=== PATIENT | male | born 1985 | race Caucasian/White ===

== ENCOUNTER 2019-09-03 04:44 | Emergency (ER) | payer SELFPAY ==
--- NOTE | ~2019-09-03 | CT_ITS ---
EXAMINATION: CT abdomen pelvis w con DATE: 09/03/2019 06:21 INDICATION: Right flank pain TECHNIQUE: Computed tomography (CT) of the abdomen and pelvis was performed with 100 cc Omnipaque 350 intravenous contrast. Automated exposure control and iterative reconstruction technique were employe d. Exam dose: 890.60 mGy-cm total exam DLP. COMPARISON: None. FINDINGS: The lung bases are clear. Normal heart size. No pericardial or pleural effusion. No hepatic space-occupying mass lesion. The gallbladder is unremarkable. No bile duct dilatation. Nor mal splenic size. There is severe extensive calcification of the pancreas. No pancreatic mass lesion or ductal dilatati on is evident. Normal morphology of the adrenal glands. No renal mass lesion is detected. There is a distal right ureteral 2.5 mm calculus with mild right hydroureteronephrosis. No other urin kavitha tract calculus is noted. Normal caliber of the abdominal aorta. No intraperitoneal or retroperitoneal or pelvic mass lesion or adenopathy or ascites. Mild bilateral fat containing inguinal hernias. Small sliding hiatal hernia. Normal appendix. Mild colonic diverticulosis; no CT evidence of divertic ulitis. No bowel obstruction or intraperitoneal free air. The urinary bladder is unremarkable. Moderate prostate prominence. Nonspecific bilateral prominent inguinal lymph nodes; recommend clinical correlation. Healing anterior right 11th rib fracture. Included skeletal structures are otherwise unremarkable. IMPRESSION: 2.5 mm distal right ureteral calculus with mild right hydroureteronephrosis Extensive calcifications of the pancreas consistent with chronic pancreatitis Reviewed, dictated and finalized at [facility] Reviewed, dictated and finalized at [facility]. IMPRESSION: 2.5 mm distal right ureteral calculus with mild right hydrouretero nephrosis Extensive calcifications of the pancreas consistent with chronic pancreatitis
[2019-09-03 05:19] VITALS: BP 123/92; PULSE 91; RESP 18; TEMP 36.5; O2SAT 98
--- NOTE | 2019-09-03 05:26 | ED.ABDPAIN ---
HPI - Abdominal Pain General Chief Complaint: Abdominal Pain <Joycelyn Christianson MD - Last Filed: 09/03/19 19:01> Stated Complaint: right flank pain <Joycelyn Christianson MD - Last Filed: 09/03/19 19:01> Time Seen by Provider: 09/03/19 05:17 <Joycelyn Christianson MD - Last Filed: 09/03/19 19:01> History of Present Illness HPI narrative: Patient presents for severe acute right lower quadrant and right flank pain since 3 AM. He has had some vomiting. He gauges the pain at 10 out of 10. No fever or chills. He has never had anything like this before. He has no history of kidney stones. He has not been sick in the last week. <Joycelyn Christianson MD - Last Filed: 09/03/19 19:01> MD elicited complaint: abdominal pain and flank pain <Joycelyn Christianson MD - Last Filed: 09/03/19 19:01> Related Data Allergies/Adverse Reactions: Allergies Allergy/AdvReac Type Severity Reaction Status Date / Time No Known Allergies Allergy Unverified 09/03/19 05:01 <Joycelyn Christianson MD - Last Filed: 09/03/19 19:01> Review of Systems Review of Systems: Narrative: CONSTITUTIONAL: Denies fever, chills, or sweats. EYES: Denies visual changes, redness, or discharge. ENT: Denies rhinorrhea, congestion, sore throat, or otalgia. CARDIOVASCULAR: Denies chest pain, palpitations, or edema. RESPIRATORY: Denies cough or dyspnea. GASTROINTESTINAL: He has abdominal pain, nausea, vomiting, but not diarrhea. GENITOURINARY: Denies dysuria or hematuria. SKIN: Denies rash or itching. MUSCULOSKELETAL: Denies back pain, joint pain, or myalgia. NEUROLOGIC: Denies headache, numbness, or weakness. PSYCHIATRIC: Denies anxiety or depression. <Joycelyn Christianson MD - Last Filed: 09/03/19 19:01> [facility] Family History Family History: Family History (Updated 07/28/16 @ 11:15 by DOCTOR UNKNOWN) Grandparent Diabetes mellitus Asthma <Joycelyn Christianson MD - Last Filed: 09/03/19 19:01> Social History Social History: Social History (Updated 09/03/19 @ 05:27 by Joycelyn Christianson MD) Alcohol intake: current Substance use: current Substance use type: marijuana Gender identity (if verbalized by the patient): Male <Joycelyn Christianson MD - Last Filed: 09/03/19 19:01> Exam Narrative: Exam Narrative: GENERAL: Well-appearing, well-nourished, and in pain. HEAD: Normocephalic, atraumatic. EYES: PERRLA and EOMI. ENT: Nares clear, no rhinorrhea or epistaxis. Mucous membranes moist. NECK: Supple. CHEST: Clear to auscultation. No respiratory distress. HEART: Regular rate and rhythm. No murmur heard. Normal peripheral pulses. ABDOMEN: Soft, tender, nondistended, normal active bowel sounds. EXTREMITIES: Normal range of motion. No edema. SKIN: Warm, dry, no rash. Vitiligo. NEURO: No focal deficits. Alert and oriented x3. PSYCH: Normal mood and affect. <Joycelyn Christianson MD - Last Filed: 09/03/19 19:01> Course Reevaluation(s) Reevaluation #1: Sx iomproved with toradol. Given additional liter of fluid. D/c with supportive care. <Radhames Hager MD - Last Filed: 09/03/19 08:48> Date: 09/03/19 <Radhames Hager MD - Last Filed: 09/03/19 08:48> Time: 08:45 <Radhames Hager MD - Last Filed: 09/03/19 08:48> Vital Signs Vital signs: Vital Signs Temperature 97.7 F 09/03/19 05:19 Pulse Rate 91 09/03/19 05:19 Respiratory Rate 18 09/03/19 05:19 Blood Pressure 123/92 H 09/03/19 05:19 Pulse Oximetry 98 09/03/19 05:19 Temperature 97.7 F 09/03/19 05:19 Pulse Rate 96 09/03/19 09:16 Respiratory Rate 16 09/03/19 09:16 Blood Pressure 104/66 09/03/19 09:16 Pulse Oximetry 95 06/06/20 09:16 <Joycelyn Christianson MD - Last Filed: 09/03/19 19:01> Vital Signs Temperature 97.7 F 09/03/19 05:19 Pulse Rate 91 09/03/19 05:19 Respiratory Rate 18 09/03/19 05:19 Blood Pressure 123/92 H 09/03/19 05:19 Pulse Oximetry 98 09/03/19 05:19 Temperature 97.7 F 09/03/19 05:19 Pulse Rate 96
[2019-09-03] MEDS: SODIUM CHLORIDE 0.9% IV 1,000 ML 999 ML IV CONT ×2 (05:30→07:56)
[2019-09-03] MEDS: ONDANSETRON INJ 4 MG/2 ML VIAL IV PUSH ×2 (05:30→07:58)
[2019-09-03] MEDS: MORPHINE SULFATE 4 MG/ML INJ IV PUSH (05:31)
[2019-09-03 05:36] LABS: Basophils Absolute Auto 0.1 K/mm3 (0.0-0.1); Basophils Percent Auto 0.7 % (0.2-1.2); Eosinophils Absolute Auto 0.8 K/mm3 (0-0.3); Hematocrit 47.5 % (42.0-52.0); Hemoglobin 15.9 g/dL (14.0-18.0); Immature Granulocyte Absolute 0.11 K/mm3 (0.00-0.031); Lymphocytes Absolute Auto 1.72 K/mm3 (0.9-3.2); Lymphocytes Percent Auto 15.6 % (18.3-44.2); Mean Corpuscular HGB Conc 33.5 g/dl (32-36); Mean Corpuscular Hemoglobin 31.4 pg (26-34); Mean Corpuscular Volume 93.7 fl (80-100); Mean Platelet Volume 10.9 fl (7.4-10.4); Monocytes Absolute Auto 0.9 K/mm3 (0.1-0.6); Monocytes Percent Auto 8.2 % (2.6-8.5); Neutrophils Absolute Auto 7.4 K/mm3 (1.3-6.7); Neutrophils Percent Auto 67.5 % (45.5-73.1); Platelet Count Result 338 k/mm3 (150-375); Red Blood Count 5.07 M/mm3 (4.6-6.20); Red Cell Distribution Width 13.8 % (11.5-14.5)
[2019-09-03 05:44] LABS: Add Urine Microscopic? YES; Appearance Urine Cloudy (Clear); Bilirubin Urine Negative (Negative); Blood Urine 3+ (Negative); Color Urine Yellow (Yellow); Glucose Urine UA Negative (Negative); Ketones Urine Negative (Negative); Leukocyte Esterase Ur Negative LEU/UL (Negative); Mucus Urine Heavy /lpf; Nitrate Urine Negative (Negative); Protein Urine 1+ mg/dL (Negative); RBC Urine >75 /hpf (0-2); Specific Grav Ur 1.027 (1.001-1.035); Squamous Epithelial Cell Urine Rare /hpf (Few); Urobilinogen Urine Negative mg/dL (<2.0)
[2019-09-03 05:46] LABS: Alanine Aminotransferase 62 U/L (4-50); Albumin Level 4.1 g/dL (3.5-5.1); Alkaline Phosphatase 178 U/L (38-126); Aspartate Amino Transferase 46 U/L (17-59); Bilirubin,Total 0.8 mg/dL (0.2-1.3); Blood Urea Nitrogen 7 mg/dL (9-20); Calcium 10.3 mg/dL (8.4-10.2); Carbon Dioxide 26 mmol/L (22-30); Chloride 107 mmol/L (98-107); Estimated Glomerular Filt Rate > 60; Glucose 130 mg/dL (75-110); Potassium 3.8 mmol/L (3.4-5.0); Sodium 141 mmol/L (137-145)
[2019-09-03] MEDS: HYDROMORPHONE HCL 1 MG/ML INJ IV PUSH (05:48)
[2019-09-03] MEDS: KETOROLAC 30 MG/ML VIAL (*BKC) IV PUSH (07:57)
[2019-09-03 08:40] VITALS: BP 109/57; PULSE 94; RESP 16; O2SAT 96
[2019-09-03 09:16] VITALS: BP 104/66; PULSE 96; RESP 16; O2SAT 95
== END 2019-09-03 09:17 | disposition home or self-care (01) ==
PROVIDERS: Emergency Medicine; Emergency Provider Emergency Medicine
DX: N13.2 Hydronephrosis with renal and ureteral calculous obstruction (principal); K86.89 Other specified diseases of pancreas; L80 Vitiligo
CPT/HCPCS: 36415; 74177; 80053; 81001; 85025; 87086; 87088; 96361; 96374; 96375; 96376; 99284; J1170; J1885; J2270; J2405; J7030; Q9967

== ENCOUNTER 2021-02-23 15:25 | Emergency (ER) | payer OTHER, SELFPAY ==
[2021-02-23] VITALS (17 sets, daily range): BP systolic 113–133; BP diastolic 63–83; PULSE 91–115; RESP 12–22; TEMP 37.4; O2SAT 89–100
--- NOTE | ~2021-02-23 | XR_ITS ---
EXAMINATION: XR chest 2V 02/23/2021 15:49 INDICATION: Cough and congestion PROCEDURE: 2 view chest COMPARISON: 03/27/2004 FINDINGS: The lungs are clear. The cardiomediastinal silhouette is within normal limits. There are no pleural effusions. There is no pneumothorax suspected. IMPRESSION: 1: NO ACUTE CARDIOPULMONARY DISEASE. Reviewed, dictated and finalized at [facility]. COURIER
[2021-02-23] MEDS: ALBUTEROL SULFATE NEB 2.5 MG/0.5 ML INH 15 MG INHALATION (15:53)
[2021-02-23] MEDS: IPRATROPIUM BR 0.02% INH SOLN 0.5 MG/2.5 ML VIAL 1.5 MG INHALATION (15:54)
--- NOTE | 2021-02-23 16:04 | ED.URI ---
HPI - URI/Sore Throat General Chief Complaint: Upper Respiratory Infection Stated Complaint: cough, congestion Time Seen by Provider: 02/23/21 15:34 Source: patient History of Present Illness HPI Narrative: Patient presents with cough, congestion, shortness of breath. Reports history of asthma and he normally gets symptoms like this around this time of year due to the weather change. Reports typically breathing treatments will help him. He was seen at another facility approximately 2 weeks ago but did not get breathing treatments and was just sent home. Reports his symptoms have not really improved so he came back to the ER for evaluation. He has not noted any fevers he has not been vaccinated against Covid denies any focal areas of pain such as chest pain or abdominal pain. Denies any nausea vomiting or diarrhea. Denies any known sick contacts. Related Data Home Medications Medication Instructions Recorded Confirmed albuterol sulfate INHALATION 02/23/21 budesonide-formoterol [Symbicort] INHALATION 02/23/21 montelukast mg 02/23/21 Allergies Allergy/AdvReac Type Severity Reaction Status Date / Time No Known Allergies Allergy Unverified 02/23/21 15:31 Review of Systems Review of Systems: CONSTITUTIONAL: Denies fever, chills, or sweats. EYES: Denies visual changes, redness, or discharge. ENT: Reports congestion denies sore throat or difficulty swallowing CARDIOVASCULAR: Denies chest pain, palpitations, or edema. RESPIRATORY: Reports dyspnea and cough GASTROINTESTINAL: Denies abdominal pain, nausea, vomiting, or diarrhea. GENITOURINARY: Denies dysuria or hematuria. SKIN: Denies rash or itching. MUSCULOSKELETAL: Denies back pain, joint pain, or myalgia. NEUROLOGIC: Denies headache, numbness, dizziness, or weakness. PSYCHIATRIC: Denies anxiety or depression. All systems reviewed & are unremarkable except as noted in HPI and below PMFSH Past Medical History Medical History (Updated 02/23/21 @ 17:06 by Feliciano Sahni MD) Asthma Family History Family History Grandparent Diabetes mellitus Asthma Social History Social History Alcohol intake: current Substance use: current Substance use type: marijuana Gender identity (if verbalized by the patient): Male Exam Narrative: GENERAL: Well-appearing, well-nourished, and in no acute distress. HEAD: Normocephalic, atraumatic. EYES: PERRLA and EOMI. ENT: Nares clear, no rhinorrhea or epistaxis. Mucous membranes moist. NECK: Supple. No masses. No JVD CHEST: Diffuse wheezing and all lung mcknight most prominent with expiratory phase HEART: Regular rate and rhythm. No murmur heard. Normal peripheral pulses. ABDOMEN: Soft, nontender, nondistended, normal active bowel sounds. EXTREMITIES: Normal range of motion. No edema. SKIN: Warm, dry, no rash. NEURO: No focal deficits. Alert and oriented x3. PSYCH: Normal mood and affect. Course Reevaluation(s) Reevaluation #1: Patient reports feeling much improved. Patient continues have mild wheezing on exam. Given his improvement he feels like he can manage his symptoms at home with continued supportive therapies. Date: 02/23/21 Time: 17:05 Vital Signs Vital signs: Vital Signs Temperature 37.4 C 02/23/21 15:28 Pulse Rate 108 H 02/23/21 15:28 Respiratory Rate 18 02/23/21 15:28 Pulse Oximetry 94 02/23/21 15:28 Temperature 37.4 C 02/23/21 15:28 Pulse Rate 96 02/23/21 17:49 Respiratory Rate 15 02/23/21 17:49 Blood Pressure 120/72 02/23/21 17:49 Pulse Oximetry 100 02/23/21 17:49 MDM - URI/Sore Throat MDM Narrative Medical decision making narrative: H&P as above, vss, pt looks clinically well, exam initially with diffuse wheezing improved after DuoNeb therapies, imaging without acute process, additional labs/img considered. symptomatic relief available as needed, patien
[2021-02-23] MEDS: predniSONE 20 MG TABLET 60 MG PO (16:32)
[2021-02-25 20:05] LABS: SARS-CoV-2 RNA PCR Negative
== END 2021-02-23 17:45 | disposition home or self-care (01) ==
PROVIDERS: Emergency Provider Emergency Medicine; PCP Family Medicine
DX: R06.02 Shortness of breath (principal); J45.909 Unspecified asthma, uncomplicated; Z20.822 Contact with and (suspected) exposure to COVID-19
CPT/HCPCS: 71046; 94640; 99283; C9803; J7512; U0003; U0005

== ENCOUNTER 2024-03-31 12:09 | Emergency (ER) | payer BC, SELFPAY ==
[2024-03-31 12:33] VITALS: BP 129/79; PULSE 80; RESP 20; TEMP 36.9; O2SAT 100
--- NOTE | 2024-03-31 12:43 | ED_ITS ---
HPI - General Adult General Chief complaint: Unspecified Stated complaint: pt with PD, medical clearance needed/pt on acid Focused HPI: 38-year-old male presents to the emergency department for nausea, vomiting and diarrhea for 5 days. Patient reports several episodes of diarrhea. He went to urgent care and was sent to the ED for further evaluation. He reports lower abdominal cramping that is intermittent. Not currently having any current in her pain. Denies dysuria or hematuria. Denies recent sick contacts, recent antibiotic use, recent surgeries or hospitalizations, healthcare exposure. Reports a history of prior mechanical aortic valve replacement 1 year ago. GENERAL: Well-appearing, well-nourished, and in no acute distress. HEAD: Normocephalic, atraumatic. CHEST: Clear to auscultation. ?No respiratory distress. HEART: Regular rate and rhythm.? NEURO: ?Alert and oriented x3. Patient screened in triage and initial orders placed.? ?Additional care and disposition to be based upon?diagnostic testing and treatment. Related Data Home Medications ?Medication ?Instructions ?Recorded ?Confirmed ?Last Taken ?Type albuterol sulfate 90 mcg/actuation inhalation 02/23/21 Unknown History aerosol inhaler budesonide-formoterol HFA 160 inhalation 02/23/21 Unknown History mcg-4.5 mcg/actuation aerosol inhaler (Symbicort) montelukast 10 mg tablet mg 02/23/21 Unknown History Allergies Allergy/AdvReac Type Severity Reaction Status Date / Time No Known Allergies Allergy Unverified 02/23/21 15:31 [facility] Past Medical History Medical History (Updated 04/01/24 @ 18:47 by Alexandra Garay PA-C) Asthma Family History Family History Grandparent Diabetes mellitus Asthma Social History Social History Alcohol intake: current Substance use: current Substance use type: marijuana Gender identity (if verbalized by the patient): Male Course Vital Signs Vital signs: Vital Signs Temperature 98.5 F 03/31/24 12:33 Pulse Rate 80 03/31/24 12:33 Respiratory Rate 20 03/31/24 12:33 Blood Pressure 129/79 03/31/24 12:33 Pulse Oximetry 100 03/31/24 12:33 Temperature 98.5 F 03/31/24 12:33 Pulse Rate 80 03/31/24 12:33 Respiratory Rate 20 03/31/24 12:33 Blood Pressure 129/79 03/31/24 12:33 Pulse Oximetry 100 03/31/24 12:33 Medical Decision Making Vital Signs Vital Signs: Vital Signs Temperature 98.5 F 03/31/24 12:33 Pulse Rate 80 03/31/24 12:33 Respiratory Rate 20 03/31/24 12:33 Blood Pressure 129/79 03/31/24 12:33 Pulse Oximetry 100 03/31/24 12:33 Temperature 98.5 F 03/31/24 12:33 Pulse Rate 80 03/31/24 12:33 Respiratory Rate 20 03/31/24 12:33 Blood Pressure 129/79 03/31/24 12:33 Pulse Oximetry 100 03/31/24 12:33 Lab Data 03/31/24 13:52 03/31/24 13:52 Labs: Lab Results 03/31/24 Range/Units 13:52 WBC 18.8 H (4.5-10.0) K/mm3 RBC 5.17 (4.6-6.20) M/mm3 Hgb 16.4 (14.0-18.0) g/dL Hct 47.2 (42.0-52.0) % MCV 91.3 (80-100) fl MCH 31.7 (26-34) pg MCHC 34.7 (32-36) g/dl RDW 13.1 (11.5-14.5) % Plt Count 264 (150-375) k/mm3 MPV 11.3 H (7.4-10.4) fl Immature Gran % (Auto) 0.4 (0-0.5) % Neut % (Auto) 81.6 H (45.5-73.1) % Lymph % (Auto) 5.2 L (18.3-44.2) % Banks % (Auto) 11.9 H (2.6-8.5) % Eos % (Auto) 0.6 (0-4.4) % Baso % (Auto) 0.3 (0.2-1.2) % Lymph # (Auto) 0.98 (0.9-3.2) K/mm3 Banks # (Auto) 2.2 H (0.1-0.6) K/mm3 Eos # (Auto) 0.1 (0-0.3) K/mm3 Baso # (Auto) 0.1 (0.0-0.1) K/mm3 Abs Immat Gran (auto) 0.08 H (0.00-0.031) K/mm3 Absolute Neuts (auto) 15.3 H (1.3-6.7) K/mm3 Absolute Nucleated RBC 0.000 (0.0-0.012) K/mm3 Nucleated RBC % 0.0 (0.0-0.2) % Sodium 136 L (137-145) mmol/L Potassium 4.0 (3.4-5.0) mmol/L Chloride 107 (98-107) mmol/L Carbon Dioxide 25 (22-30) mmol/L Anion Gap 4 (4-12) mmol/L BUN 10 (9-20) mg/dL Creatinine 0.80 (0.7-1.3) mg/dL Estim Creat Clear Calc Not Reportable Estimated GFR > 60 (59 - ) Glucose 151 H (65-110) mg/dL Calcium 11.2 H (8.4-10.2) mg/dL Magnesium 2.3 (1.6-2.3) mg/dL Total Bilirubin 2.8 H (0.2-1.3) mg/dL AST 23 (17-59) U/L ALT 20 (6-50) U/L Alkaline Phosphatase 153 H (38-126) U/L Total Protein 8.0 (6.3-8.2) g/dL Albumin 4.7 (3.5-5.1) g/dL Lipase 13 L (23-300) U/L Discharge Plan Discharge Clinical Impression: Nausea & vomiting Qualifiers: Vomiting type: unspecified Qualified Code(s): R11.2 - Nausea with vomiting, unspecified Patient Disposition: Elopement After Seen by Prov Condition: Stable Patient Language: Croatian Prescriptions: No Action montelukast 10 mg tablet albuterol sulfate 90 mcg/actuation HFA aerosol inhaler INHALATION budesonide-formoterol [Symbicort] 160-4.5 mcg/actuation HFA aerosol inhaler INHALATION albuterol sulfate 0.63 mg/3 mL solution for nebulization 0.63 mg inhalation Q4H PRN (Reason: shortness of breath or wheezing) Qty: 75 0RF ipratropium bromide 0.02 % solution 0.5 mg inhalation Q6H Qty: 62.5 0RF prednisone 50 mg tablet 50 mg PO DAILY Qty: 4 0RF Rx Instructions: start steroids tomorrow Follow-up/Referrals: Javier,MD Abad [Primary Care Provider] -
[2024-03-31 13:57] LABS: Basophils Absolute Auto 0.1 K/mm3 (0.0-0.1); Basophils Percent Auto 0.3 % (0.2-1.2); Eosinophils Absolute Auto 0.1 K/mm3 (0-0.3); Eosinophils Percent Auto 0.6 % (0-4.4); Hematocrit 47.2 % (42.0-52.0); Hemoglobin 16.4 g/dL (14.0-18.0); Immature Granulocyte Absolute 0.08 K/mm3 (0.00-0.031); Immature Granulocyte Percent A 0.4 % (0-0.5); Lymphocytes Absolute Auto 0.98 K/mm3 (0.9-3.2); Lymphocytes Percent Auto 5.2 % (18.3-44.2); Mean Corpuscular HGB Conc 34.7 g/dl (32-36); Mean Corpuscular Hemoglobin 31.7 pg (26-34); Mean Corpuscular Volume 91.3 fl (80-100); Mean Platelet Volume 11.3 fl (7.4-10.4); Monocytes Absolute Auto 2.2 K/mm3 (0.1-0.6); Monocytes Percent Auto 11.9 % (2.6-8.5); Neutrophils Absolute Auto 15.3 K/mm3 (1.3-6.7); Neutrophils Percent Auto 81.6 % (45.5-73.1); Platelet Count Result 264 k/mm3 (150-375); Red Blood Count 5.17 M/mm3 (4.6-6.20); Red Cell Distribution Width 13.1 % (11.5-14.5); White Blood Count 18.8 K/mm3 (4.5-10.0)
[2024-03-31 14:14] LABS: Alanine Aminotransferase 20 U/L (6-50); Albumin Level 4.7 g/dL (3.5-5.1); Alkaline Phosphatase 153 U/L (38-126); Anion Gap 4 mmol/L (4-12); Aspartate Amino Transferase 23 U/L (17-59); Bilirubin,Total 2.8 mg/dL (0.2-1.3); Blood Urea Nitrogen 10 mg/dL (9-20); Calcium 11.2 mg/dL (8.4-10.2); Carbon Dioxide 25 mmol/L (22-30); Chloride 107 mmol/L (98-107); Estimated Glomerular Filt Rate > 60; Glucose 151 mg/dL (65-110); Lipase 13 U/L (23-300); Magnesium 2.3 mg/dL (1.6-2.3); Sodium 136 mmol/L (137-145)
--- NOTE | 2024-03-31 14:38 | PC.NURSE ---
Ivan MONTOYA states they are leaving with pt.
== END 2024-03-31 16:25 | disposition left against medical advice (07) ==
LOC: ANHED 15:29
PROVIDERS: Emergency Provider Physician Assistant; PCP Family Medicine
DX: R11.2 Nausea with vomiting, unspecified (principal); J45.909 Unspecified asthma, uncomplicated
CPT/HCPCS: 36415; 80053; 83690; 83735; 85025; 99283

== ENCOUNTER 2024-06-07 17:17 | Emergency (ER) | payer BC, SELFPAY ==
[2024-06-07] VITALS (27 sets, daily range): BP systolic 102–138; BP diastolic 66–92; PULSE 68–80; RESP 9–16; TEMP 36.7; O2SAT 87–100
--- NOTE | ~2024-06-07 | CT_ITS ---
CT of the Abdomen and Pelvis: Indication: Abdominal pain Technique: 2.5 mm axial scans were obtained through the abdomen and pelvis following intravenous adm inistration of 100 cc of Omnipaque 350. Dose reduction technique was used on this scan by utilizing a utomated exposure control and iterative reconstruction technique. The dose-length product (DLP) was 5 13.77 mGy-cm. Findings: Scans through the lung bases are unremarkable. The liver, spleen, adrenals and kidneys are within normal limits. Questionable mild gallbladder wall thickening and pericholecystic inflammatory change. There are extensive pancreatic calcifications, mi ld peripancreatic inflammatory change and fluid. There is a fluid collection along the greater curvat ure of the stomach measuring 4.0 x 2.8 cm (axial image 41, compatible with pseudocyst. Probable addit ional small septated pseudocyst along the pancreatic head (axial image 62). No evidence of aortic ane urysm. No lymphadenopathy. No bowel obstruction or bowel wall thickening. There is no evidence to suggest acute appendicitis. Images through the pelvis were performed. Urinary bladder unremarkable. No pelvic mass. No ascites. Impression: Acute on chronic pancreatitis, as detailed above, peripancreatic inflammatory change and fluid with e xtensive coarse pancreatic calcifications. 4.0 x 2.8 cm probable pseudocyst along the greater curvature of the stomach. Possible additional smal l septated pseudocyst at the pancreatic head region. Mild gallbladder wall thickening and pericholecystic inflammatory change is likely reactive due to th e pancreatitis. If there is concern for cholecystitis, consider ultrasound and/or HIDA scan. Reviewed, dictated and finalized at location . Impression: Acute on chronic pancreatitis, as detailed above, peripancreatic inflammatory c hange and fluid with extensive coarse pancreatic calcifications. 4.0 x 2.8 cm probable pseudocyst along the greater curvature of the stomach. Po ssible additional small septated pseudocyst at the pancreatic head region. Mild gallbladder wall thickening and pericholecystic inflammatory change is lik patricia reactive due to the pancreatitis. If there is concern for cholecystitis, co nsider ultrasound and/or HIDA scan.
--- NOTE | 2024-06-07 18:03 | ED_ITS ---
HPI - Abdominal Pain General Chief Complaint: Abdominal Pain <Danna Momin PA-C - Last Filed: 06/10/24 17:07> Stated Complaint: right side abd pain <Danna Momin PA-C - Last Filed: 06/10/24 17:07> Time Seen by Provider: 06/07/24 18:03 <Danna Momin PA-C - Last Filed: 06/10/24 17:07> Focused HPI: This is a 38 year old male that presents to the ER for right upper quadrant pain ongoing over the last couple of months intermittently. Reports history of pancreatitis. Reports some diarrhea. Denies fever, vomiting, dysuria, hematuria. GENERAL: Well-appearing, well-nourished, and in no acute distress. HEAD: Normocephalic, atraumatic. CHEST: Clear to auscultation. ?No respiratory distress. HEART: Regular rate and rhythm.? NEURO: ?Alert and oriented x3. Patient screened in triage and initial orders placed.? ?Additional care and disposition to be based upon?diagnostic testing and treatment. <Danna Momin PA-C - Last Filed: 06/10/24 17:07> Source: patient <Aj Martinez PA-C - Last Filed: 06/08/24 02:30> Mode of arrival: ambulatory <Aj Martinez PA-C - Last Filed: 06/08/24 02:30> Limitations: no limitations <Aj Martinez PA-C - Last Filed: 06/08/24 02:30> History of Present Illness HPI narrative: Agree with MSE note above. Patient reports pain is primarily in the right upper quadrant and sometimes radiates into the right flank region. Denies any lower abdominal pain. Denies urinary symptoms. Endorses some diarrhea but no vomiting. Denies any known fevers. States he has had pancreatitis in the past. <Aj Martinez PA-C - Last Filed: 06/08/24 02:30> Related Data Home Medications: Home Medications ?Medication ?Instructions ?Recorded ?Confirmed ?Last Taken ?Type albuterol sulfate 90 mcg/actuation inhalation 02/23/21 Unknown History aerosol inhaler budesonide-formoterol HFA 160 inhalation 02/23/21 Unknown History mcg-4.5 mcg/actuation aerosol inhaler (Symbicort) montelukast 10 mg tablet mg 02/23/21 Unknown History <Danna Momin PA-C - Last Filed: 06/10/24 17:07> Allergies/Adverse Reactions: Allergies Allergy/AdvReac Type Severity Reaction Status Date / Time No Known Allergies Allergy Unverified 02/23/21 15:31 <Danna Momin PA-C - Last Filed: 06/10/24 17:07> Review of Systems 2 Review of Systems: All systems as dictated in HPI <Aj Martinez PA-C - Last Filed: 06/08/24 02:30> [facility] Past Medical History Medical History: Medical History (Updated 06/10/24 @ 17:07 by Danna Momin PA-C) Asthma <Danna Momin PA-C - Last Filed: 06/10/24 17:07> Family History Family History: Family History Grandparent Diabetes mellitus Asthma <Danna Momin PA-C - Last Filed: 06/10/24 17:07> Social History Social History: Social History Alcohol intake: current Substance use: current Substance use type: marijuana Gender identity (if verbalized by the patient): Male <Danna Momin PA-C - Last Filed: 06/10/24 17:07> Exam 2 Narrative: GENERAL: Well-appearing, well-nourished, and in no acute distress. HEAD: Normocephalic, atraumatic. EYES: PERRLA and EOMI. ENT: Nares clear, no rhinorrhea or epistaxis. Mucous membranes moist. Oropharynx without tonsillar hypertrophy exudate or other lesions. NECK: Supple. No adenopathy or masses. CHEST: No respiratory distress. Clear to auscultation. No wheezes rales or rhonchi HEART: Regular rate and rhythm. No murmur heard. Normal peripheral pulses. ABDOMEN: Mild right upper quadrant tenderness. Soft, otherwise nontender, nondistended, normal active bowel sounds. MSK: Normal range of motion. No edema. SKIN: Warm, dry, no rash. NEURO: Alert and oriented x4. No focal deficits. PSYCH: Normal mood and affect. <Aj Martinez PA-C - Last Filed: 06/08/24 02:30> Course Vital Signs Vital signs: Vital Signs Temperature 98.1 F 06/07/24 17:34 Pulse Rate 80 06/07/24 17:34 Respiratory Rate 16 06/07/24 17:34 Blood Pressure 138/74 06/07/24 17:34 Pulse Oximetry 98 06/07/24 17:34 Oxygen Delivery Room Air 06/07/24 17:34 Temperature 98.1 F 06/07/24 17:34 Pulse Rate 77 06/07/24 20:46 Respiratory Rate 9 L 06/07/24 20:46 Blood Pressure 134/109 H 06/08/24 01:00 Pulse Oximetry 97 06/08/24 01:01 Oxygen Delivery Room Air 06/07/24 17:34 <Danna Momin PA-C - Last Filed: 06/10/24 17:07> Vital Signs Temperature 98.1 F 06/07/24 17:34 Pulse Rate 80 06/07/24 17:34 Respiratory Rate 16 06/07/24 17:34 Blood Pressure 138/74 06/07/24 17:34 Pulse Oximetry 98 06/07/24 17:34 Oxygen Delivery Room Air 06/07/24 17:34 Temperature 98.1 F 06/07/24 17:34 Pulse Rate 77 06/07/24 20:46 Respiratory Rate 9 L 06/07/24 20:46 Blood Pressure 134/109 H 06/08/24 01:00 Pulse Oximetry 97 06/08/24 01:01 Oxygen Delivery Room Air 06/07/24 17:34 <KIMMY Oakes Last Filed: 06/08/24 02:30> MDM - Abdominal Pain MDM Narrative Medical decision making narrative: This is a 38-year-old male who presents to the ED for chief complaint of epigastric abdominal pain. Vitals are normal. Exam remarkable for the above. He is resting comfortably and does not appear toxic. Lab work shows mildly elevated white count 13 on. Lipase is normal. CMP shows mild elevation in total bilirubin and mild elevation in calcium 11.1. CT abdomen pelvis with IV contrast: Acute on chronic pancreatitis with edema throughout the pancreas which is after being calcified. No pseudocyst. Mild wall thickening of the adjacent duodenum. On re-evaluation patient is resting comfortably after receiving pain medications and Zofran. He is tolerating p.o. fluids without difficulty. He feels well enough to go home today. Discussed that he needs to follow-up with GI for chronic pancreatitis. Patient will be discharged in stable condition. Supportive measures discussed and return precautions given. Patient is understanding and agreeable with plan for discharge with GI follow-up. <Aj Martinez PA-C - Last Filed: 06/08/24 02:30> Lab Data Result diagrams: 06/07/24 18:15 06/07/24 18:15 <Danna Momin PA-C - Last Filed: 06/10/24 17:07> Labs: Lab Results 06/07/24 06/07/24 Range/Units 18:11 18:15 WBC 13.1 H (4.5-10.0) K/mm3 RBC 5.11 (4.6-6.20) M/mm3 Hgb 16.0 (14.0-18.0) g/dL Hct 47.7 (42.0-52.0) % MCV 93.3 (80-100) fl MCH 31.3 (26-34) pg MCHC 33.5 (32-36) g/dl RDW 13.4 (11.5-14.5) % Plt Count 283 (150-375) k/mm3 MPV 10.6 H (7.4-10.4) fl Immature Gran % (Auto) 0.3 (0-0.5) % Neut % (Auto) 68.1 (45.5-73.1) % Lymph % (Auto) 12.5 L (18.3-44.2) % [place] % (Auto) 8.3 (2.6-8.5) % Eos % (Auto) 10.0 H (0-4.4) % Baso % (Auto) 0.8 (0.2-1.2) % Lymph # (Auto) 1.63 (0.9-3.2) K/mm3 [place] # (Auto) 1.1 H (0.1-0.6) K/mm3 Eos # (Auto) 1.3 H (0-0.3) K/mm3 Baso # (Auto) 0.1 (0.0-0.1) K/mm3 Abs Immat Gran (auto) 0.04 H (0.00-0.031) K/mm3 Absolute Neuts (auto) 8.9 H (1.3-6.7) K/mm3 Absolute Nucleated RBC 0.000 (0.0-0.012) K/mm3 Nucleated RBC % 0.0 (0.0-0.2) % Sodium 140 (137-145) mmol/L Potassium 4.0 (3.4-5.0) mmol/L Chloride 106 (98-107) mmol/L Carbon Dioxide 25 (22-30) mmol/L Anion Gap 9 (4-12) mmol/L BUN 8 L (9-20) mg/dL Creatinine 0.63 L (0.7-1.3) mg/dL Estim Creat Clear Calc 159 ml/min Estimated GFR > 60 (59 - ) Glucose 122 H (65-110) mg/dL Calcium 11.1 H (8.4-10.2) mg/dL Total Bilirubin 1.7 H (0.2-1.3) mg/dL AST 27 (17-59) U/L ALT 24 (6-50) U/L Alkaline Phosphatase 150 H (38-126) U/L Total Protein 8.0 (6.3-8.2) g/dL Albumin 4.3 (3.5-5.1) g/dL Lipase 14 L (23-300) U/L Urine Color Yellow (Yellow) Urine Appearance Clear (Clear) Urine pH 5.5 (5.0-9.0) Ur Specific [place] 1.021 (1.001-1.035) Urine Protein Negative (Negative) mg/dL Urine Glucose (UA) Negative (Negative) mg/dL Urine Ketones Negative (Negative) mg/dL Ur Blood (Man) Negative (Negative) Urine Nitrate Negative (Negative) Urine Bilirubin Negative (Negative) Urine Urobilinogen 0.2 (<2.0) mg/dL Leukocyte Esterase Rfl Negative (Negative) OLLIE/UL <Danna Momin PA-C - Last Filed: 06/10/24 17:07> Lab Results 06/07/24 06/07/24 Range/Units 18:11 18:15 WBC 13.1 H (4.5-10.0) K/mm3 RBC 5.11 (4.6-6.20) M/mm3 Hgb 16.0 (14.0-18.0) g/dL Hct 47.7 (42.0-52.0) % MCV 93.3 (80-100) fl MCH 31.3 (26-34) pg MCHC 33.5 (32-36) g/dl RDW 13.4 (11.5-14.5) % Plt Count 283 (150-375) k/mm3 MPV 10.6 H (7.4-10.4) fl Immature Gran % (Auto) 0.3 (0-0.5) % Neut % (Auto) 68.1 (45.5-73.1) % Lymph % (Auto) 12.5 L (18.3-44.2) % [place] % (Auto) 8.3 (2.6-8.5) % Eos % (Auto) 10.0 H (0-4.4) % Baso % (Auto) 0.8 (0.2-1.2) % Lymph # (Auto) 1.63 (0.9-3.2) K/mm3 [place] # (Auto) 1.1 H (0.1-0.6) K/mm3 Eos # (Auto) 1.3 H (0-0.3) K/mm3 Baso # (Auto) 0.1 (0.0-0.1) K/mm3 Abs Immat Gran (auto) 0.04 H (0.00-0.031) K/mm3 Absolute Neuts (auto) 8.9 H (1.3-6.7) K/mm3 Absolute Nucleated RBC 0.000 (0.0-0.012) K/mm3 Nucleated RBC % 0.0 (0.0-0.2) % Sodium 140 (137-145) mmol/L Potassium 4.0 (3.4-5.0) mmol/L Chloride 106 (98-107) mmol/L Carbon Dioxide 25 (22-30) mmol/L Anion Gap 9 (4-12) mmol/L BUN 8 L (9-20) mg/dL Creatinine 0.63 L (0.7-1.3) mg/dL Estim Creat Clear Calc 159 ml/min Estimated GFR > 60 (59 - ) Glucose 122 H (65-110) mg/dL Calcium 11.1 H (8.4-10.2) mg/dL Total Bilirubin 1.7 H (0.2-1.3) mg/dL AST 27 (17-59) U/L ALT 24 (6-50) U/L Alkaline Phosphatase 150 H (38-126) U/L Total Protein 8.0 (6.3-8.2) g/dL Albumin 4.3 (3.5-5.1) g/dL Lipase 14 L (23-300) U/L Urine Color Yellow (Yellow) Urine Appearance Clear (Clear) Urine pH 5.5 (5.0-9.0) Ur Specific [place] 1.021 (1.001-1.035) Urine Protein Negative (Negative) mg/dL Urine Glucose (UA) Negative (Negative) mg/dL Urine Ketones Negative (Negative) mg/dL Ur Blood (Man) Negative (Negative) Urine Nitrate Negative (Negative) Urine Bilirubin Negative (Negative) Urine Urobilinogen 0.2 (<2.0) mg/dL Leukocyte Esterase Rfl Negative (Negative) OLLIE/UL <Aj Martinez PA-C - Last Filed: 06/08/24 02:30> Imaging Data Radiologist's impression: ITS Impressions Abdomen/Pelvis CT 06/08/24 06:13 Impression: Acute on chronic pancreatitis, as detailed above, peripancreatic inflammatory change and fluid with extensive coarse pancreatic calcifications. 4.0 x 2.8 cm probable pseudocyst along the greater curvature of the stomach. Possible additional small septated pseudocyst at the pancreatic head region. Mild gallbladder wall thickening and pericholecystic inflammatory change is likely reactive due to the pancreatitis. If there is concern for cholecystitis, consider ultrasound and/or HIDA scan. <Danna Momin PA-C - Last Filed: 06/10/24 17:07> ITS Impressions Abdomen/Pelvis CT 06/08/24 06:13 Impression: Acute on chronic pancreatitis, as detailed above, peripancreatic inflammatory change and fluid with extensive coarse pancreatic calcifications. 4.0 x 2.8 cm probable pseudocyst along the greater curvature of the stomach. Possible additional small septated pseudocyst at the pancreatic head region. Mild gallbladder wall thickening and pericholecystic inflammatory change is likely reactive due to the pancreatitis. If there is concern for cholecystitis, consider ultrasound and/or HIDA scan. <Aj Martinez PA-C - Last Filed: 06/08/24 02:30> Critical Care Time Critical Care Time Critical Care Time: No <Danna Momin PA-C - Last Filed: 06/10/24 17:07> Discharge Plan Discharge Clinical Impression: Chronic pancreatitis Qualifiers: Pancreatitis type: unspecified pancreatitis type Qualified Code(s): K86.1 - Other chronic pancreatitis <Danna Momin PA-C - Last Filed: 06/10/24 17:07> Patient Disposition: Home, Self-Care <Danna Momin PA-C - Last Filed: 06/10/24 17:07> Condition: Stable <KIMMY Hui Last Filed: 06/10/24 17:07> Instructions: Antibiotic Form, Pancreatitis (ED) <Danna Momin PA-C - Last Filed: 06/10/24 17:07> Additional Instructions: Your exam and imaging today do show pancreatitis but her lab work is reassuring. Please follow-up closely with GI on this issue. Stay well hydrated at home. Progress diet slowly as tolerated. If you have any new or worsening symptoms please return to the ER for further evaluation. <Danna Momin PA-C - Last Filed: 06/10/24 17:07> Patient Language: Bol[place]ian <Danna Momin PA-C - Last Filed: 06/10/24 17:07> Prescriptions: No Action montelukast 10 mg tablet albuterol sulfate 90 mcg/actuation HFA aerosol inhaler INHALATION budesonide-formoterol [Symbicort] 160-4.5 mcg/actuation HFA aerosol inhaler INHALATION albuterol sulfate 0.63 mg/3 mL solution for nebulization 0.63 mg inhalation Q4H PRN (Reason: shortness of breath or wheezing) Qty: 75 0RF ipratropium bromide 0.02 % solution 0.5 mg inhalation Q6H Qty: 62.5 0RF prednisone 50 mg tablet 50 mg PO DAILY Qty: 4 0RF Rx Instructions: start steroids tomorrow <Danna Momin PA-C - Last Filed: 06/10/24 17:07> Follow-up/Referrals: Javier,MD Abad [Primary Care Provider] - Oscar Gaitan MD [Physician] - <Danna Momin PA-C - Last Filed: 06/10/24 17:07> Stand Alone Forms: Work/School Release IP <Danna Momin PA-C - Last Filed: 06/10/24 17:07> Time of Disposition: 01:00 <Danna Momin PA-C - Last Filed: 06/10/24 17:07> 01:00 <Aj Martinez PA-C - Last Filed: 06/08/24 02:30>
--- OUTSIDE RECORDS SUMMARY | 2024-06-07 18:19 | XMS_ITS | Data Portability ---
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 02/11/20 23 02/10/2023 LIPID PANEL triglyceride s 150 mg/dL 0-150 NIH JASON NSUS REPOR T RECOM MENDA TION FOR TRIGL YCERI RIKY: ADULT CHILD LOW RISK: <150 ----- BODER LINE: 150-1 99 ----- HIGH RISK: >200 ----- Not Available [facility] (Lab) [address] [place], [address], 02/10/2023 16:49:27 02/11/2002/10/2023 LIPID PANEL HDL cholesterol 61 mg/dL 40- Not Available [facility] (Lab) [address] [place], [address], 02/10/2023 16:49:27 02/11/20 23 02/10/2023 LIPID PANEL LDL cholesterol, calculated 55 mg/dL 0-130 NIH JASON NSUS REPOR T RECOM MENDA TIONS FOR LDL: ADULT CHILD LOW RISK <130 <110 (OPTI MAL LDL) <100 ----- BORDE RLINE : 130-1 59 ----- HIGH RISK: >160 >130 A TRIGL YCERI DE RESUL T >400 INVAL IDATE S THE CALCU LATIO N FOR LDL FRACT IONAT ION - THE LDL RESUL T WILL NOT BE REPOR EMRE. Not Available [facility] (Lab) [address] [place], [address], 02/10/2023 16:49:27 02/11/2002/10/2023 VITAM IN D 25-HY DROXY vd25oh 14.8 NG/mL 30-100 low Vitam in D Statu s: Defic ient: <20 ng/mL Insuf ficie nt: 20-29 ng/mL Suffi cient : 30-10 0 ng/mL Not Available [facility] (Lab) [address] [place], [address], 02/10/2023 16:55:38 02/11/2002/10/2023 TSH W/REF BERNIE FT4 TSH with reflex free T4 2.320 uIU/m L 0.465- 4.680 Not Available [facility] (Lab) [address] [place], [address], 02/10/2023 17:16:11 02/11/20 23 02/10/2023 PSA, TOTAL PSA, total 1.53 NG/mL 0.00-4 .00 Not Available [facility] (Lab) [address] [place], [address], 02/10/2023 17:16:15 02/11/20 23 02/10/2023 HEMOG LOBIN A1C HA1C 4.5 % 4.0-6. 0 Diabe juany Scree russell Crite parris: <5.7% Consi stent with absen ce of diabe juany 5.7-6 .4% Consi stent with incre ased risk for diabe juany (pred iabet es) >OR=6 .5% Consi stent with diabe juany REFER ENCE: Diabe juany Care 2016, 39( ppl.1 ):s13 -s22 Not Available [facility] (Lab) [address] [place], [address], 02/10/2023 20:26:38 02/11/20 23 02/10/2023 VITAM IN D 25-HY DROXY vd25oh 14.8 NG/mL 30-100 low Vitam in D Statu s: Defic ient: <20 ng/mL Insuf ficie nt: 20-29 ng/mL Suffi cient : 30-10 0 ng/mL Not Available [facility] (Lab) [address] [place], [address], 02/10/2023 22:25:19 02/11/20 23 02/10/2023 URINA LYSIS COMPL ETE/I RIS W/RFX color YELLOW Not Available [facility] (Lab) [address] [place], [address], 02/10/2023 22:26:20 02/11/20 23 02/10/2023 URINA LYSIS COMPL ETE/I RIS W/RFX appear CLEAR Not Available [facility] (Lab) [address] [place], [address], 02/10/2023 22:26:20 02/11/20 23 02/10/2023 URINA LYSIS COMPL ETE/I RIS W/RFX specific gravity 1.024 1.001- 1.030 Not Available [facility] (Lab) [address] [place], [address], 02/10/2023 22:26:20 02/11/20 23 02/10/2023 URINA LYSIS COMPL ETE/I RIS W/RFX pH 5.5 pH_un its 5.0-9. 0 Not Available [facility] (Lab) [address] [place], [address], 02/10/2023 22:26:20 02/11/20 23 02/10/2023 URINA LYSIS COMPL ETE/I RIS W/RFX leukocytes NEGATI VE yessenia/u L negati ve- Not Available [facility] (Lab) [address] [place], [address], 02/10/2023 22:26:20 02/11/20 23 02/10/2023 URINA LYSIS COMPL ETE/I RIS W/RFX nitrite NEGATI VE negati ve- Not Available [facility] (Lab) [address] [place], [address], 02/10/2023 22:26:20 02/11/20 23 02/10/2023 URINA LYSIS COMPL ETE/I RIS W/RFX protein 10 mg/dL negati ve- abnormal Not Available [facility] (Lab) [address] [place], [address], 02/10/2023 22:26:20 02/11/20 23 02/10/2023 URINA LYSIS COMPL ETE/I RIS W/RFX glucose NORMAL mg/dL normal - Not Available [facility] (Lab) [address] [place], [address], 02/10/2023 22:26:20 02/11/20 23 02/10/2023 URINA LYSIS COMPL ETE/I RIS W/RFX ketones NEGATI VE mg/dL negati ve- Not Available [facility] (Lab) [address] [place], [address], 02/10/2023 22:26:20 02/11/20 23 02/10/2023 URINA LYSIS COMPL ETE/I RIS W/RFX urobilinogen NORMAL mg/dL normal - Not Available [facility] (Lab) [address] [place], [address], 02/10/2023 22:26:20 02/11/20 23 02/10/2023 URINA LYSIS COMPL ETE/I RIS W/RFX bilirubin NEGATI VE mg/dL negati ve- Not Available [facility] (Lab) [address] [place], [address], 02/10/2023 22:26:20 02/11/20 23 02/10/2023 URINA LYSIS COMPL ETE/I RIS W/RFX blood 0.03 mg/dL negati ve- abnormal Not Available [facility] (Lab) [address] [place], [address], 02/10/2023 22:26:20 02/11/20 23 02/10/2023 URINA LYSIS COMPL ETE/I RIS W/RFX white blood cells 0-8 /i??h pfi?? 0-8 Not Available [facility] (Lab) [address] [place], [address], 02/10/2023 22:26:20 02/11/20 23 02/10/2023 URINA LYSIS COMPL ETE/I RIS W/RFX red blood cells 0-4 /i??h pfi?? 0-4 Not Available [facility] (Lab) [address] [place], [address], 02/10/2023 22:26:20 02/11/20 23 02/10/2023 URINA LYSIS COMPL ETE/I RIS W/RFX bacteria NONE Not Available [facility] (Lab) [address] [place], [address], 02/10/2023 22:26:20 02/11/20 23 02/10/2023 URINA LYSIS COMPL ETE/I RIS W/RFX mucous FEW /i??l pfi?? abnormal Not Available [facility] (Lab) [address] [place], [address], 02/10/2023 22:26:20 02/11/20 23 02/10/2023 URINA LYSIS COMPL ETE/I RIS W/RFX squamous epithelial OCCASI ONAL /i??l pfi?? abnormal Not Available [facility] (Lab) [address] [place], [address], 02/10/2023 22:26:20 02/11/20 23 02/10/2023 TSH W/REF BERNIE FT4 TSH with reflex free T4 2.320 uIU/m L 0.465- 4.680 Not Available [facility] (Lab) [address] [place], [address], 02/10/2023 22:26:39 02/11/20 23 02/10/2023 PSA SCREE N PSA medicare screen 1.53 NG/mL 0.00-4 .00 Not Available [facility] (Lab) [address] [place], [address], 02/10/2023 22:26:45 02/11/20 23 02/10/2023 COMPR EHENS BAILEY METAB OLIC PANEL sodium 138 mmol/ L 137-14 5 Not Available [facility] (Lab) [address] [place], [address], 02/10/2023 22:27:41 02/11/20 23 02/10/2023 COMPR EHENS BAILEY METAB OLIC PANEL potassium 3.9 mmol/ L 3.5-5. 1 Not Available [facility] (Lab) [address] [place], [address], 02/10/2023 22:27:41 02/11/20 23 02/10/2023 COMPR EHENS BAILEY METAB OLIC PANEL chloride 109 mmol/ L 98-107 high Not Available [facility] (Lab) [address] [place], [address], 02/10/2023 22:27:41 02/11/20 23 02/10/2023 COMPR EHENS BAILEY METAB OLIC PANEL carbon dioxide 24 mmol/ L 22-30 Not Available [facility] (Lab) [address] [place], [address], 02/10/2023 22:27:41 02/11/20 23 02/10/2023 COMPR EHENS BAILEY METAB OLIC PANEL anion gap 8.9 mmol/ L 14-22 low Not Available [facility] (Lab) [address] [place], [address], 02/10/2023 22:27:41 02/11/20 23 02/10/2023 COMPR EHENS BAILEY METAB OLIC PANEL glucose 114 mg/dL 70-99 high Not Available [facility] (Lab) [address] [place], [address], 02/10/2023 22:27:41 02/11/20 23 02/10/2023 COMPR EHENS BAILEY METAB OLIC PANEL BUN 9 mg/dL 8-19 Not Available [facility] (Lab) [address] [place], [address], 02/10/2023 22:27:41 02/11/20 23 02/10/2023 COMPR EHENS BAILEY METAB OLIC PANEL creatinine 0.63 mg/dL 0.66-1 .25 low Not Available [facility] (Lab) [address] [place], [address], 02/10/2023 22:27:41 02/11/20 23 02/10/2023 COMPR EHENS BAILEY METAB OLIC PANEL GFR >60 Refer ence Range : [place] ge GFR Healt hy Adult : >60 mL/mi n/1.7 3 m2 Chron ic Kidne y Disea se: 15-60 mL/mi n/1.7 3 m2 Kidne y Failu re: <15/m L/min /1.73 m2 www.n iddk. nih.g ov The MDRD study equat ion has not been valid ated in child ruma <18 years of age; pregn ant women ; the elder ly >85 years of age; or in some racia l or ethni c subgr oups, such as Hispa nics. Outsi de the valid ated shari eters , estim ated GFR is less accur ate, requi ring clini alejandrina judgm ent on a case- by-ca se basis . Clini alejandrina inter preta tion for other races and ages must be made by the clini yue. The MDRD study equat ion has not been valid ated for the evalu ation of serum creat inine relat ed to nutri vera l statu s or medic ation usage . For perso ns <18 years of age, a pedia tric GFR calcu lator is avail able on the [facility] websi te: https :[email or web address] w.juan [email or web address] camila/pr ofess ional s/kdo qi/gf r_cal culat or Not Available [facility] (Lab) [address] [place], [address], 02/10/2023 22:27:41 02/11/20 23 02/10/2023 COMPR EHENS BAILEY METAB OLIC PANEL alkaline phosphatase 96 U/L 38-126 Not Available [facility] (Lab) [address] [place], [address], 02/10/2023 22:27:41 02/11/20 23 02/10/2023 COMPR EHENS BAILEY METAB OLIC PANEL alanine aminotransfe rase 51 U/L 0-50 high Not Available [facility] (Lab) [address] [place], [address], 02/10/2023 22:27:41 02/11/20 23 02/10/2023 COMPR EHENS BAILEY METAB OLIC PANEL aspartate aminotransfe rase 47 U/L 15-46 high Not Available [facility] (Lab) [address] [place], [address], 02/10/2023 22:27:41 02/11/20 23 02/10/2023 COMPR EHENS BAILEY METAB OLIC PANEL bilirubin, total 1.60 mg/dL 0.20-1 .30 high Not Available [facility] (Lab) [address] [place], [address], 02/10/2023 22:27:41 02/11/20 23 02/10/2023 COMPR EHENS BAILEY METAB OLIC PANEL calcium 11.0 mg/dL 8.4-10 .2 high Not Available [facility] (Lab) [address] [place], [address], 02/10/2023 22:27:41 02/11/20 23 02/10/2023 COMPR EHENS BAILEY METAB OLIC PANEL total protein 6.8 g/dL 6.3-8. 2 Not Available [facility] (Lab) [address] [place], [address], 02/10/2023 22:27:41 02/11/20 23 02/10/2023 COMPR EHENS BAILEY METAB OLIC PANEL albumin 4.0 g/dL 3.4-5. 0 Not Available [facility] (Lab) [address] [place], [address], 02/10/2023 22:27:41 02/11/20 23 02/10/2023 COMPR EHENS BAILEY METAB OLIC PANEL globulin 2.8 g/dL 2.6-4. 2 Not Available [facility] (Lab) [address] [place], [address], 02/10/2023 22:27:41 02/11/20 23 02/10/2023 COMPR EHENS BAILEY METAB OLIC PANEL A/G ratio 1.4 ratio 1.0-2. 0 Not Available [facility] (Lab) [address] [place], [address], 02/10/2023 22:27:41 02/11/20 23 02/10/2023 LIPID PANEL cholesterol 146 mg/dL 140-19 9 NIH JASON NSUS RECOM MENDA TION FOR CALLIE STERO L: ADULT CHILD LOW RISK: <200 <170 BORDE ARTUR : <200- 239 ----- HIGH RISK: >240 >200 Not Available [facility] (Lab) [address] [place], [address], 02/10/2023 22:27:45 02/11/20 23 02/10/2023 LIPID PANEL triglyceride s 150 mg/dL 0-150 NIH JASON NSUS REPOR T RECOM MENDA TION FOR TRIGL YCERI RIKY: ADULT CHILD LOW RISK: <150 ----- BODER LINE: 150-1 99 ----- HIGH RISK: >200 ----- Not Available [facility] (Lab) [address] [place], [address], 02/10/2023 22:27:45 02/11/20 23 02/10/2023 LIPID PANEL HDL cholesterol 61 mg/dL 40- Not Available [facility] (Lab) [address] [place], [address], 02/10/2023 22:27:45 02/11/20 23 02/10/2023 LIPID PANEL LDL cholesterol, calculated 55 mg/dL 0-130 NIH JASON NSUS REPOR T RECOM MENDA TIONS FOR LDL: ADULT CHILD LOW RISK <130 <110 (OPTI MAL LDL) <100 ----- BORDE RLINE : 130-1 59 ----- HIGH RISK: >160 >130 A TRIGL YCERI DE RESUL T >400 INVAL IDATE S THE CALCU LATIO N FOR LDL FRACT IONAT ION - THE LDL RESUL T WILL NOT BE REPOR EMRE. Not Available [facility] (Lab) [address] [place], [address], 02/10/2023 22:27:45 02/11/20 23 02/10/2023 HEMOG LOBIN A1C HA1C 4.5 % 4.0-6. 0 Diabe juany Scree russell Crite parris: <5.7% Consi stent with absen ce of diabe juany 5.7-6 .4% Consi stent with incre ased risk for diabe juany (pred iabet es) >OR=6 .5% Consi stent with diabe juany REFER ENCE: Diabe juany Care 2016, 39(Cooney ppl.1 ):s13 -s22 Not Available [facility] (Lab) [address] [place], [address], 02/10/2023 22:29:36 02/11/20 23 02/10/2023 CBC/C OMPLE TE BLD COUNT W/DIF F white blood cells 9.8 x10'3 /uL 4.2-10 .8 Not Available [facility] (Lab) [address] [place], [address], 02/10/2023 22:33:56 02/11/20 23 02/10/2023 CBC/C OMPLE TE BLD COUNT W/DIF F red blood cells 4.31 x10'6 /uL 4.10-5 .80 Not Available [facility] (Lab) [address] [place], [address], 02/10/2023 22:33:56 02/11/20 23 02/10/2023 CBC/C OMPLE TE BLD COUNT W/DIF F hemoglobin 14.5 g/dL 13.2-1 7.0 Not Available [facility] (Lab) [address] [place], [address], 02/10/2023 22:33:56 02/11/20 23 02/10/2023 CBC/C OMPLE TE BLD COUNT W/DIF F hematocrit 43.0 % 39.3-5 0.0 Not Available [facility] (Lab) [address] [place], [address], 02/10/2023 22:33:56 02/11/20 23 02/10/2023 CBC/C OMPLE TE BLD COUNT W/DIF F mean red cell volume 99.8 fL 80.0-9 7.0 high Not Available [facility] (Lab) [address] [place], [address], 02/10/2023 22:33:56 02/11/20 23 02/10/2023 CBC/C OMPLE TE BLD COUNT W/DIF F mean red cell hemoglobin 33.6 pg 27.0-3 3.0 high Not Available [facility] (Lab) [address] [place], [address], 02/10/2023 22:33:56 02/11/20 23 02/10/2023 CBC/C OMPLE TE BLD COUNT W/DIF F mean RBC HGB concentratio n 33.7 g/dL 31.0-3 6.0 Not Available [facility] (Lab) [address] [place], [address], 02/10/2023 22:33:56 02/11/20 23 02/10/2023 CBC/C OMPLE TE BLD COUNT W/DIF F red cell distribution width 12.6 % 11.8-1 5.5 Not Available [facility] (Lab) [address] [place], [address], 02/10/2023 22:33:56 02/11/20 23 02/10/2023 CBC/C OMPLE TE BLD COUNT W/DIF F platelets 229 x10'3 /uL 150-40 0 Not Available [facility] (Lab) [address] [place], [address], 02/10/2023 22:33:56 02/11/20 23 02/10/2023 CBC/C OMPLE TE BLD COUNT W/DIF F mean platelet volume 11.9 fL 9.0-12 .4 Not Available [facility] (Lab) [address] [place], [address], 02/10/2023 22:33:56 02/11/20 23 02/10/2023 CBC/C OMPLE TE BLD COUNT W/DIF F neutrophils 61.9 % 39.0-7 2.0 Not Available [facility] (Lab) [address] [place], [address], 02/10/2023 22:33:56 02/11/20 23 02/10/2023 CBC/C OMPLE TE BLD COUNT W/DIF F lymphocytes 14.9 % 16.0-4 7.0 low Not Available [facility] (Lab) [address] [place], [address], 02/10/2023 22:33:56 02/11/20 23 02/10/2023 CBC/C OMPLE TE BLD COUNT W/DIF F monocytes 8.7 % 5.0-12 .0 Not Available [facility] (Lab) [address] [place], [address], 02/10/2023 22:33:56 02/11/20 23 02/10/2023 CBC/C OMPLE TE BLD COUNT W/DIF F eosinophils 13.1 % 1.0-7. 0 high Not Available [facility] (Lab) [address] [place], [address], 02/10/2023 22:33:56 02/11/20 23 02/10/2023 CBC/C OMPLE TE BLD COUNT W/DIF F basophils 1.1 % 0.0-2. 0 Not Available [facility] (Lab) [address] [place], [address], 02/10/2023 22:33:56 02/11/20 23 02/10/2023 CBC/C OMPLE TE BLD COUNT W/DIF F immature granulocytes 0.3 % 0.00-0 .50 Not Available [facility] (Lab) [address] [place], [address], 02/10/2023 22:33:56 02/11/20 23 02/10/2023 CBC/C OMPLE TE BLD COUNT W/DIF F neutrophils, absolute count 6.08 x10'3 /uL 1.5-8. 0 Not Available [facility] (Lab) [address] [place], [address], 02/10/2023 22:33:56 02/11/20 23 02/10/2023 CBC/C OMPLE TE BLD COUNT W/DIF F lymphocytes, absolute count 1.47 x10'3 /uL 1.07-3 .43 Not Available [facility] (Lab) [address] [place], [address], 02/10/2023 22:33:56 02/11/20 23 02/10/2023 CBC/C OMPLE TE BLD COUNT W/DIF F monocytes, absolute count 0.86 x10'3 /uL 0.29-0 .99 Not Available [facility] (Lab) [address] [place], [address], 02/10/2023 22:33:56 02/11/20 23 02/10/2023 CBC/C OMPLE TE BLD COUNT W/DIF F eosinophils, absolute count 1.29 x10'3 /uL 0.02-0 .53 high Not Available [facility] (Lab) [address] [place], [address], 02/10/2023 22:33:56 02/11/20 23 02/10/2023 CBC/C OMPLE TE BLD COUNT W/DIF F basophils, absolute count 0.11 x10'3 /uL 0.01-0 .08 high Not Available [facility] (Lab) [address] [place], [address], 02/10/2023 22:33:56 02/11/20 23 02/10/2023 CBC/C OMPLE TE BLD COUNT W/DIF F immature granulocytes ,absolute 0.03 x10'3 /uL 0.00-0 .05 Not Available [facility] (Lab) [address] [place], [address], 02/10/2023 22:33:56 02/11/20 23 02/10/2023 CBC/C OMPLE TE BLD COUNT W/DIF F nucleated red blood cells 0.0 % -0 Not Available [facility] (Lab) [address] [place], [address], 02/10/2023 22:33:56 02/11/20 23 02/10/2023 CBC/C OMPLE TE BLD COUNT W/DIF F NRBC# 0.00 x10'3 /uL Not Available [facility] (Lab) [address] [place], [address], 02/10/2023 22:33:56 02/11/20 23 02/11/2023 PARAT HY.ETHAN RM(PT H)INT ACT-W /O CA intact parathyroid hormone 144.2 pg/mL 24.0-7 8.0 high Pleas e note new refer ence range effec tive 04/25 . Not Available [facility] (Lab) [address] [place], [address], 02/11/2023 22:13:14 Result Notes None recorded. Problems Name Problem SNOMED Code Status Onset Date Resolution Date Notes Provider Name and Address Organization Details Recorded Time Idiopathic hypercalce aracely 514891912 Active 2018 Not Available [facility] 3 14:49:57 Asthma 518114055 Active 2018 Not Available [facility] 3 14:49:57 Microscopi c hematuria 858859744 Active 2018 Not Available [facility] 3 14:49:58 Vitamin D deficiency 82393348 Active 2018 Not Available [facility] 3 14:49:58 Seasonal allergic rhinitis 948326667 Active 2021 Not Available [facility] 3 14:49:58 Osteoarthr itis 774052015 Active Not Available [facility] 3 14:49:58 Solitary nodule of lung 035487388 Completed 201804/05/2019 Not Available [facility] 3 14:49:58 History of amputation of leg through tibia and fibula 425280626 Active 2021 Not Available [facility] 3 14:49:58 Eczema 59147002 Active 2018 Not Available [facility] 3 14:49:59 Multiple nodules of lung 934016927 Active 2019 Not Available [facility] 3 14:49:59 Vitiligo 37374700 Active 2018 Not Available [facility] 3 14:49:59 Liver enzymes level above reference range 146884128 Active 2018 Not Available [facility] 3 14:49:59 Hypertrigl yceridemia 051015541 Active 2022 Abad Herrera MD [address], [address], [place], [address] , [email or web address] 3 10:01:37 Cigarette smoker 40878315 Active 2022 Abad Herrera MD [address], [address], [place], [address] , [email or web address] 3 10:03:03 Dyspnea on exertion 34951333 Active 2022 Hemanth Brewer MD [address], [address], [place], [address] , [email or web address] 3 14:21:08 Smoker 62867679 Active 2022 Hemanth Brewer MD [address], [address], [place], [address] , [email or web address] 3 14:33:11 Hyperparat hyroidism 58848396 Active 2022 Abad Herrera MD [address], [address], [place], [address] , [email or web address] 3 13:59:40 Moderate chronic obstructiv e pulmonary disease 949989668 Active 2022 Hemanth Brewer MD [address], [address], [place], [address] , [email or web address] 3 16:57:20 Hyperbilir ubinemia 38878234 Active 2022 Abad Herrera MD [address], [place], [address] , [facility] 3 10:20:03 Erectile dysfunctio n 498590024 Active 2023 Abad Herrera MD [address], [place], [address] , [facility] 4 10:41:19 Allergic contact dermatitis 617389384 Active 2023 LUIS Corbett [address], [place], [address] , [facility] 4 15:30:11 Notes:Medical History: Vitil igo Eczema on Dupixent Bilateral tinnitus Rhinitis to multiple environmental allergens (+) Aspergillus fumigatus IgE IgE 74601 IU/mL Eosinophils 1690/uL AAT PiMS 145 mg% Nicotine use Mod asthma/COPD overlap syndrome Erythrocytosis Hypertriglyceridemia QING Renal calculi Vit D deficiency OA Procedure History: Exploratory laparotomy 2021 Left BKA 2021 Occupational History: sales route driver Problem Notes None recorded. Procedures Surgical History Date Name Laterality Status Provider Name and Address Organization Details Recorded Time 4 Smoking Cessation completed Abad Herrera MD [address], [place], [address], [facility] 05/27/2023 10:49:02 3 Smoking Cessation completed Abad Herrera MD [address], [place], [address], [facility] 02/10/2023 10:38:49 3 Smoking Cessation completed Abad Herrera MD [address], [place], [address], [facility] 01/20/2023 17:28:17 3 Smoking Cessation completed Abad Herrera MD [address], [place], [address], [facility] [employer] 06/24/2022 10:09:50 amputation of lower limb completed Ita Hernandez MA [facility] [employer] 07/15/2022 14:16:59 Imaging Results None recorded. Procedure Notes None recorded. Medical Equipment None Reported. Allergies No known drug allergies Medications Name Sig Start Date Stop Date Status Note LastModified by Organization Details LastModified Time cyclobenzap rine 10 mg tablet TAKE 1 TABLET BY MOUTH THREE TIMES A DAY NEEDED FOR MUSCLE SPASMS 12/26 completed Not Available Not Available Not Available methocarbam ol 500 mg tablet active Not Available Not Available Not Available albuterol sulfate 0.63 mg/3 mL solution for nebulizatio n USE 1 VIAL VIA NEBULIZER BY MOUTH EVERY 4 HOURS NEEDED FOR SHORTNESS OF BREATH OR WHEEZING 08/05 completed Not Available Not Available Not Available prednisone 10 mg tablet Take 1 tablet every day by oral route as directed for 10 days. active Not Available Not Available No t Available cetirizine 10 mg tablet TAKE 1 TABLET BY MOUTH EVERY DAY DIRECTED active Not Available Not Available No t Available azithromyci n 250 mg tablet TK UTD 04/05 completed Not Available Not Available Not Available hydrocodone 5 mg-acetamin ophen 325 mg tablet TAKE 1 TABLET BY MOUTH EVERY 6 HOURS NEEDED FOR PAIN 12/10 completed Not Available Not Available Not Available prednisone 20 mg tablet TK 1 T PO D FOR 7 DAYS 06/27 completed Not Available Not Available Not Available clobetasol 0.05 % topical cream active Not Available Not Available Not Available clindamycin HCl 150 mg capsule TAKE 3 CAPSULES BY MOUTH 3 TIMES DAILY FOR 5 DAYS active Not Available Not Available No t Available metronidazo le 500 mg tablet 06/24 completed Not Available Not Available Not Available hydroxyzine HCl 50 mg tablet Take 1 tablet every 8 hours by oral route as needed for 5 days. active Not Available Not Available No t Available sulfamethox azole 800 mg-trimetho prim 160 mg tablet TAKE 1 TABLET BY MOUTH TWICE DAILY FOR 10 DAYS 06/27 completed Not Available Not Available Not Available tramadol 50 mg tablet TAKE 1 TABLET BY MOUTH EVERY 6 HOURS NEEDED FOR PAIN 12/17 completed Not Available Not Available Not Available sildenafil 100 mg tablet Take 1 tablet as needed by oral route as directed for 30 days. 2023 active Not Available Not Available Not Avai lable triamcinolo ne acetonide 0.1 % topical cream APPLY TO RASH TWICE DAILY FOR 2 WEEKS ON, THEN 2 WEEKS OFF. MAY REPEAT active Not Available Not Available No t Available ketorolac 10 mg tablet TK 1 T PO TID active Not Available Not Available No t Available meloxicam 7.5 mg tablet TAKE 1 TABLET BY MOUTH DAILY FOR 7 DAYS 06/24 completed Not Available Not Available Not Available oxycodone-a cetaminophe n 5 mg-325 mg tablet TAKE 1 TABLET BY MOUTH EVERY 4 HOURS NEEDED FOR PAIN 12/10 completed Not Available Not Available Not Available tamsulosin 0.4 mg capsule TK 1 C PO D active Not Available Not Available No t Available cephalexin 500 mg capsule TK 1 C PO QID FOR 10 DAYS 02/23 completed Not Available Not Available Not Available erythromyci n 5 mg/gram (0.5 %) eye ointment APPLY A THIN LAYER IN LEFT EYE EVERY 6 HOURS FOR 10 DAYS active Not Available Not Available No t Available triamcinolo ne acetonide 0.1 % topical ointment 02/23 completed Not Available Not Available Not Available dexamethaso ne 4 mg tablet TK 1 T PO ON SATURDAYS AND SUNDAYS FOR 8 WKS 02/23 completed Not Available Not Available Not Available prednisone 50 mg tablet TAKE 1 TABLET BY MOUTH DAILY. START STEROIDS TOMORROW 06/27 completed Not Available Not Available Not Available montelukast 10 mg tablet TAKE 1 TABLET BY MOUTH EVERY DAY AT BEDTIME active Not Available Not Available No t Available hydroxyzine HCl 25 mg tablet Take 1 tablet every 6-8 hours by oral route as needed for 7 days. active Not Available Not Available No t Available ergocalcife rol (vitamin D2) 1,250 mcg (50,000 unit) capsule TAKE 1 CAPSULE BY MOUTH EVERY THURSDAY FOR 12 WEEKS active Not Available Not Available No t Available ibuprofen 600 mg tablet TK 1 T PO Q 6 H PRN P 02/23 completed Not Available Not Available Not Available levofloxaci n 750 mg tablet 06/24 completed Not Available Not Available Not Available methylpredn isolone 4 mg tablets in a dose pack FOLLOW PACKAGE DIRECTION S active Not Available Not Available No t Available albuterol sulfate HFA 90 mcg/actuati on aerosol inhaler INHALE 2 PUFFS BY MOUTH EVERY 6 HOURS NEEDED FOR WHEEZING 2024 active Not Available Not Available Not Avai lable ondansetron 4 mg disintegrat ing tablet DIS 1 T ON THE TONGUE Q 6 H PRF NAUSEA OR VOM active Not Available Not Available No t Available fluticasone propionate 50 mcg/actuati on nasal spray,suspe nsion SHAKE LIQUID AND USE 2 SPRAYS IN EACH NOSTRIL EVERY DAY DIRECTED 06/24 completed Not Available Not Available Not Available ipratropium bromide 0.02 % solution for inhalation USE 1 VIAL VIA NEBULIZER EVERY 6 HOURS 12/26 completed Not Available Not Available Not Available oxycodone 5 mg tablet 12/10 completed Not Available Not Available Not Available pregabalin 50 mg capsule TAKE 1 CAPSULE BY MOUTH EVERY 12 HOURS DIRECTED active Not Available Not Available No t Available Symbicort 160 mcg-4.5 mcg/actuati on HFA aerosol inhaler INHALE 2 PUFFS BY MOUTH TWICE DAILY DIRECTED 2024 active Not Available Not Available Not Avai lable oxycodone 10 mg tablet TAKE 1 TABLET BY MOUTH EVERY 6 HOURS NEEDED FOR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
--- OUTSIDE RECORDS SUMMARY | 2024-06-07 18:19 | XMS_ITS | Clinical Summary ---
Author Organization [facility] Address [facility] [place] [address] Care Team Providers Care Assistant Professor Of English Name Role Phone Abad Herrera MD Primary Care Provider [phone] Allergies No known active allergies Medications albuterol sulfate HFA 108 (90 Base) MCG/ACT inhaler Inhale 2 puffs into the lungs every 6 (six) hours as needed for Wheezing. 1 Inhaler 02/17/2019 Active methylPREDNISol one, ARNOLD, 4 MG tablet 6 TABLETS ON DAY ONE, 5 TABLETS DAY TWO, 4 TABLETS DAY THREE, 3 TABLETS DAY FOUR, 2 TABLETS DAY FIVE, AND 1 TABLET DAY SIX 1 each 02/17/2019 Active cyclobenzaprine 10 MG tabletIndicatio ns:Strain of lumbar region, initial encounter Take 1 tablet (10 mg total) by mouth 3 (three) times daily as needed for Muscle Spasms. 15 tablet 10/30/2020 Active traMADol 50 MG tabletIndicatio ns:Acute Pain < 3 Day Supply Take 1 tablet (50 mg total) by mouth every 6 (six) hours as needed for Pain. Indications: Acute Pain < 3 Day Supply 8 tablet 10/30/2020 Active albuterol sulfate HFA 108 (90 Base) MCG/ACT inhaler Inhale 2 puffs into the lungs every 6 (six) hours as needed for Wheezing. 6.7 g 02/12/2021 Active Social History Tobacco Use Types Packs/Day Years Used Date Smoking Tobacco: Heavy Smoker Cigarettes 1.5 15 Smokeless Tobacco: Never Tobacco Cessation:Ready to Q uit: Not Asked; Counseling Given: Not Answered Alcohol Use Standard Drinks/Week Comments Yes 0 (1 standard drink = 0.6 oz pur e alcohol) Sex and Gender Information Value Date Recorded Sex Assigned at Not on file Legal Sex Male 8:32 PM CDT Gender Identity Not on file Sexual Orientation Not on file Last Filed Vital Signs Vital Sign Reading Time Taken Comments Blood Pressure 141/98 10/30/2023 6:31 PM CDT Pulse 81 10/30/2023 6:31 PM CDT Temperature 36.6 C (97.8 F) 10/30/2023 6:31 PM CDT Respiratory Rate 18 10/30/2023 4:54 PM CDT Oxygen Saturation 97% 10/30/2023 6:31 PM CDT Inhaled Oxygen Concentration - - Weight 90.7 kg (200 lb) 10/30/2023 4:54 PM CDT Height 190.5 cm (6' 3 ) 10/30/2023 4:54 PM CDT Body Mass Index 25 10/30/2023 4:54 PM CDT Plan of Treatment Health Maintenance Due Date Last Done Comments Annual Physical 08/03/1986 Pneumococcal Vaccine: Pediat rics (0 to 5 Years) and At-Risk Patients (6 to 64 Years) (1 of 2 - PCV) 08/03/1989 Hepatitis C 08/03/2001 Hepatitis B Vaccines (1 of 3 - 19+ 3-dose series) 08/03/2002 COVID-19 Vaccine (2023-2 5 season) 2023 Influenza Adult (#1) 2023 DTaP, Tdap and Td Vaccines ( 2 - Td or Tdap) 12/17/2030 12/17/2020 HPV Vaccines Aged Out No longer eligi ble based on patient's age to complete this topic Meningococcal B Vaccine Aged Out No l onger eligible based on patient's age to complete this topic Meningococcal Vaccine Aged Out No jeyson anshu eligible based on patient's age to complete this topic RSV Immunizations Under 20 Months Aged Out No longer eligible based on patient's age to complete this topic Insurance [facility] Care Teams Assistant Professor Of English Relationship Specialty Start Date End Date Abad Herrera MD [address] [place] [address] PCP - General HOSPITALIST 04/09/23
[2024-06-07 18:20] LABS: Basophils Absolute Auto 0.1 K/mm3 (0.0-0.1); Basophils Percent Auto 0.8 % (0.2-1.2); Eosinophils Absolute Auto 1.3 K/mm3 (0-0.3); Hematocrit 47.7 % (42.0-52.0); Immature Granulocyte Absolute 0.04 K/mm3 (0.00-0.031); Immature Granulocyte Percent A 0.3 % (0-0.5); Lymphocytes Absolute Auto 1.63 K/mm3 (0.9-3.2); Lymphocytes Percent Auto 12.5 % (18.3-44.2); Mean Corpuscular HGB Conc 33.5 g/dl (32-36); Mean Corpuscular Hemoglobin 31.3 pg (26-34); Mean Corpuscular Volume 93.3 fl (80-100); Mean Platelet Volume 10.6 fl (7.4-10.4); Monocytes Absolute Auto 1.1 K/mm3 (0.1-0.6); Monocytes Percent Auto 8.3 % (2.6-8.5); Neutrophils Absolute Auto 8.9 K/mm3 (1.3-6.7); Neutrophils Percent Auto 68.1 % (45.5-73.1); Platelet Count Result 283 k/mm3 (150-375); Red Blood Count 5.11 M/mm3 (4.6-6.20); Red Cell Distribution Width 13.4 % (11.5-14.5); White Blood Count 13.1 K/mm3 (4.5-10.0)
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
--- OUTSIDE RECORDS SUMMARY | 2024-06-07 18:20 | XMS_ITS | Encounter Summary ---
Author Organization [facility] Address [address] [place] [address] Care Team Providers Care Correspondence Analyst Name Role Phone Unavailable Primary Care Provider Unavailabl e Reason for Visit * Reason Onset Date Comments MEDICATION REFILL 05/28/2021 Encounter Details Date Type Department Care Team (Late st Contact Info) Description 05/28/2021 Refill [facility] - Orthopedics [address] [place] [address], [place] [address] Tripp Peng, DO [address] [place] [address] [place] [address] MEDICATION REFILL Social History Tobacco Use Types Packs/Day Years [...] Average Number of Drinks Not on file 01/07/2 022 Frequency of Binge Drinking Not on file 09/2021 Sex and Gender Information Value Date Recorded Sex Assigned at Not on file Gender Identity Not on file Sexual Orientation Not on file documented as of this encounter Functional Status Functional Status Response Date of [...] person have difficulty concentrating/remembering/making decisions? No 05/06/2021 documented as of this encounter Plan of Treatment Not on file documented as of this encounter Goals Goal Patient Goal Type Associated Problems Recent Progress Patient-Stated? Author Skin Integrity General No Chandler Hall, RN Note: Expected end date: 3 months Skin integrity is maintained or improved. Interventions: Continue to do daily dry dressings to stump, L BKA. 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
--- OUTSIDE RECORDS SUMMARY | 2024-06-07 18:20 | XMS_ITS | Continuity of Care Document ---
Author Organization [facility] Address [address] [place] [address] Phone Care Team Providers Care Respiratory Director Name Role Phone Yue PT, DPT, Ismael Unavailable Unavailable Procedures Procedure Date Progress Note Therapeutic Activities Therapeutic Exercise Therapeutic Activities Therapeutic Exercise Therapeutic Activities Therapeutic Exercise Therapeutic Activities Therapeutic Exercise Therapeutic Activities Therapeutic Exercise Therapeutic Activities Therapeutic Exercise Therapeutic Activities Therapeutic Exercise Therapeutic Exercise Therapeutic Activities Therapeutic Exercise Therapeutic Activities Therapeutic Activities Therapeutic Exercise Neuromuscular Re-Ed Therapeutic Activities PT Evaluation Moderate Complexity Therapeutic Activities Advance Directives Directive Yes / No Effective Date File Name No Information Encounters Encounter Description Practice Location Reason(s) For Visit Diagnoses Date Provider Providers Copied on Encounter [facility], [address], [place], [place], [id number], tel:[phone] [facility] No Information Yue Guevara. . Referring Provider: Ashleigh Stallworth, [address] [place], [address]. tel:[phone] [facility], [address], [place], [place], [id number], [place] tel:[phone] [facility] No Information Makler Luke. . Referring Provider: Ashleigh Stallworth, [address] [place] [address], [address]. tel:[phone] [place] [address], [address], [place], [place], [id number], [place] tel:[phone] [facility] No Information Makler Luke. . Referring Provider: Ashleigh Stallworth, [address] [place] [address], [id number]. tel:[phone] [place] [address], [address], [place], [place], [id number], [place] tel:[phone] [facility] No Information Makler Luke. . Referring Provider: Ashleigh Stallworth, [address] [place] [address], [address]. tel:[phone] [place] [address], [address], [place], [place], [id number], [place] tel:[phone] [facility] No Information Makler Luke. . Referring Provider: Ashleigh Stallworth, [address] [place] [address], [address]. tel:[phone] [place], [place] [id number] [address], [place], [place], [id number], [place] tel:[phone] [facility] No Information Makler Luke. . Referring Provider: Ashleigh Stallworth [address] [place] [address], [address]. tel:[phone] [place], [place] [id number] [address], [place], [place], [id number], [place] tel:[phone] [facility] No Information Makler Luke. . Referring Provider: Ashleigh Stallworth [address] [place] [address], [address]. tel:[phone] [facility] [address] [facility] [address], [place], [place], [id number], tel:[phone] [facility] No Information Makler Luke. . Referring Provider: Ashleigh Stallworth, [address] [place] [address], [address]. tel:[phone] [facility] [address] [facility] [address], [place], [place], [id number], tel:[phone] [facility] No Information Makler Luke. . Referring Provider: Ashleigh Stallworth, [address] [place] [address], [address]. tel:[phone] [facility] [address] [place] [address], [place], [place], [id number], tel:[phone] [facility] No Information Makler Luke. . Referring Provider: Ashleigh Stallworth, [address] [place] [address], [address]. tel:[phone] [facility] [address] [address], [place], [place], [id number], tel:[phone] [facility] No Information Makler Luke. . Referring Provider: Ashleigh Stallworth [address] [place] [address], [address]. tel:[phone] [address] [address] [address], [place], [place], [id number], [place] tel:[phone] [facility] No Information Makler Luke. . Referring Provider: Ashleigh Stallworth, [address] [place] [address], [address]. tel:[phone] Family History Family Member Type Diagnosis Age At Onset No Information Payers Payer name Insurance type Covered green party ID Mateo schmidt(s) [facility] [id number] Social History Type Description Quantity Date Captured Comments Sex Male Smoking Status No Information Chief Complaint And Reason For Visit No Information Reason For Referral Reason For Referral No Information Plan Of Treatment Date Type Action Status Goal Tobacco Cessation Counseling completed Goal Tobacco cessation counseling completed History Of Present Illness Encounter Date Complaint History Of Prese nt Illness No Information Functional Status Date Functional Assessmen t No Information Instructions Date Instruction Additional Infor mation No Information Assessments Type Assessment Date No Information Patient Care Teams Name Effective Dates (start - stop) Status Members No Information
--- OUTSIDE RECORDS SUMMARY | 2024-06-07 18:20 | XMS_ITS | Patient Health Summary ---
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 delayed images concerning for active hemorrhage (series 4, image 130). A short segment of the ileal loops shows minimal dilation with heterogenous luminal content adjacent to the mesenteric hematoma (image 134 in series 4), likely small bowel contusion. No suggestion of bowel wall discontinuity or mural thickening. 2.T-shaped fracture of the left acetabulum with minimal displacement. Suspicion of mild diastases of the left sacroiliac joint. Mild displaced fracture of the left posterior superior iliac spine. 3.Avulsion of the abdominal wall muscle attachment from the left iliac crest without definite evidence of herniation of abdominal contents. 4.Contusion of the soft tissues anterior to the right shoulder. 5.Incidentally noted diffuse pancreatic calcifications indicating chronic pancreatitis. 6.Incidentally noted 2 small peripheral pulmonary nodules. Report drafted by Marco Antonio Beltran (resident) Preliminary results were discussed with Dr. Ferrell by Dr. Beltran on 03/29/2021 9:40 PM. I, Dr. STEVIE RUSSELL MD, [facility] have personally reviewed and interpreted this examination/study. This report was electronically signed by STEVIE RUSSELL MD, [facility] on 03/30/2021 1:07 PM . ADDENDUM #1 A small subcapsular hematoma of right kidney mentioned in the body of report. No associated renal parenchymal lesions seen, likely grade 1 renal injury. This report was electronically signed by STEVIE RUSSELL MD, [facility] on 03/30/2021 1:14 PM . Impressions 03/30/2021 1:07 PM GAS OPERATION MANAGER Impression: 1.Mesenteric contusion/laceration in the right lower quadrant is present associated with moderate sized mesenteric hematoma. A tiny focus of contrast enhancement appears enlarged slightly on delayed images concerning for active hemorrhage (series 4, image 130). A short segment of the ileal loops shows minimal dilation with heterogenous luminal content adjacent to the mesenteric hematoma (image 134 in series 4), likely small bowel contusion. No suggestion of bowel wall discontinuity or mural thickening. 2.T-shaped fracture of the left acetabulum with minimal displacement. Suspicion of mild diastases of the left sacroiliac joint. Mild displaced fracture of the left posterior superior iliac spine. 3.Avulsion of the abdominal wall muscle attachment from the left iliac crest without definite evidence of herniation of abdominal contents. 4.Contusion of the soft tissues anterior to the right shoulder. 5.Incidentally noted diffuse pancreatic calcifications indicating chronic pancreatitis. 6.Incidentally noted 2 small peripheral pulmonary nodules. Report drafted by Marco Antonio Beltran (resident) Preliminary results were discussed with Dr. Ferrell by Dr. Beltran on 03/29/2021 9:40 PM. I, Dr. STEVIE RUSSELL MD, [facility] have personally reviewed and interpreted this examination/study. This report was electronically signed by STEVIE RUSSELL MD, [facility] on 03/30/2021 1:07 PM . Narrative 03/30/2021 1:07 PM GAS OPERATION MANAGER Procedure Information DATE: 03/29/2021 9:27 PM EXAMINATION: Computed tomography (CT) of the chest, abdomen, and pelvis with contrast TECHNIQUE: CT of the chest, abdomen, and pelvis was performed after the uneventful administration of 100 mL of Isovue 370 intravenous contrast according to standard protocol. Clinical Information HISTORY: T14.90XA: Trauma COMPARISON: None. Findings Chest: Lines/Tubes: None. Lower neck and axillae: Normal. Mediastinum and Aurora: No enlarged lymph nodes are present. Heart and Pericardium: The cardiac chambers are normal in size. No pericardial fluid or thickening is present. Lung Parenchyma, Airways, and Pleural Spaces: No acute pulmonary parenchymal or airway process is present. A few pulmonary nodules are noted (image 69 in the right upper lobe and left lower lobe in series 5). There is no pleural effusion or pneumothorax. Abdomen/pelvis: Hepatobiliary: Normal. Pancreas: Extensive pancreatic calcifications are consistent with chronic pancreatitis. Minimal peripancreatic soft tissue stranding is noted in relation to the body and tail. Spleen: Normal. Kidneys: A small subcapsular hematoma noted in relation to the right kidney without associated evidence of renal lesions (likely a grade 1 renal injury). Left kidney is unremarkable. No significant perinephric soft tissue stranding or hematoma seen. Adrenals: Normal. Retroperitoneum/Peritoneum/gastrointestinal: There are mesenteric contusions and hematomas in the right lower quadrant. Suggestion of some active bleeding. A short segment of the ileal loops shows minimal distention with luminal heterogenous high attenuation in the lumen adjacent to the mesenteric hematoma, possibility of bowel contusion is to be considered. No bowel wall discontinuity or bowel wall thickening is seen (image 134 in series 4). The appendix and multiple loops of small bowel in the right lower quadrant demonstrate intraluminal contrast, likely from previous contrast studies (correlate with the clinical data). Intraluminal contrast limits evaluation for devitalization of the bowel. No free fluid is seen in the peritoneal cavity and no pneumoperitoneum. The stomach and visualized loops of bowel elsewhere are unremarkable. Pelvic Structures: Normal. Vasculature: Scattered atherosclerotic vasculature changes. Bones: There is a minimally displaced fracture of the left acetabulum along with fractures of the superior and inferior ramus of the pubis. No extension of the fracture into the iliac bone indicating T-shaped fracture. There is suggestion of mild diastases of the left sacroiliac joint. There is a mildly displaced fracture of the left posterior superior iliac spine. Soft tissues: Left-sided traumatic avulsion of the attachment of muscles from the iliac crest associated with soft tissue stranding. No definite hernia is identified. Procedure Note Stevie Russell MD - 03/30/2021 Procedure Information DATE: 03/29/2021 9:27 PM EXAMINATION: Computed tomography (CT) of the chest, abdomen, and pelvis with contrast TECHNIQUE: CT of the chest, abdomen, and pelvis was performed after the uneventful administration of 100 mL of Isovue 370 intravenous contrast according to standard protocol. Clinical Information HISTORY: T14.90XA: Trauma COMPARISON: None. Findings Chest: Lines/Tubes: None. Lower neck and axillae: Normal. Mediastinum and Aurora: No enlarged lymph nodes are present. Heart and Pericardium: The cardiac chambers are normal in size. No pericardial fluid or thickening is present. Lung Parenchyma, Airways, and Pleural Spaces: No acute pulmonary parenchymal or airway process is present. A few pulmonary nodules are noted (image 69 in the right upper lobe and left lower lobe in series 5). There is no pleural effusion or pneumothorax. Abdomen/pelvis: Hepatobiliary: Normal. Pancreas: Extensive pancreatic calcifications are consistent with chronic pancreatitis. Minimal peripancreatic soft tissue stranding is noted in relation to the body and tail. Spleen: Normal. Kidneys: A small subcapsular hematoma noted in relation to the right kidneywithout associated evidence of renal lesions (likely a grade 1 renal injury).Left kidney is unremarkable. No significant perinephric soft tissue stranding or hematoma seen. Adrenals: Normal. Retroperitoneum/Peritoneum/gastrointestinal: There are mesenteric contusions and hematomas in the right lowerquadrant. Suggestion of some active bleeding. A short segment of the ileal loops shows minimal distention with luminal heterogenous high attenuation inthe lumen adjacent to the mesenteric hematoma, possibility of bowelcontusion is to be considered. No bowel wall discontinuity or bowel wallthickening is seen (image 134 in series 4). The appendix and multiple loops of small bowel in the right lowerquadrant demonstrate intraluminal contrast, likely from previous contrast studies (correlate with the clinical data). Intraluminal contrast limits evaluation for devitalization of the bowel. No free fluid is seen in the peritoneal cavity and no pneumoperitoneum. The stomach and visualized loops of bowel elsewhere are unremarkable. Pelvic Structures: Normal. Vasculature: Scattered atherosclerotic vasculature changes. Bones: There is a minimally displaced fracture of the left acetabulum alongwith fractures of the superior and inferior ramus of the pubis. No extensionof the fracture into the iliac bone indicating T-shaped fracture. There is suggestion of mild diastases of the left sacroiliac joint. There is a mildly displaced fracture of the left posterior superior iliac spine. Soft tissues: Left-sided traumatic avulsion of the attachment of muscles from theiliac crest associated with soft tissue stranding. No definite hernia is identified. Impression: 1.Mesenteric contusion/laceration in the right lower quadrant is present associated with moderate sized mesenteric hematoma. A tiny focus of contrast enhancement appears enlarged slightly on delayed images concerning for active hemorrhage (series 4, image 130). A short segmentof the ileal loops shows minimal dilation with heterogenous luminal content adjacent to the mesenteric hematoma (image 134 in series 4), likelysmall bowel contusion. No suggestion of bowel wall discontinuity or mural thickening. 2.T-shaped fracture of the left acetabulum with minimal displacement. Suspicion of mild diastases of the left sacroiliac joint. Mild displaced fracture of the left posterior superior iliac spine. 3.Avulsion of the abdominal wall muscle attachment from the left iliac crest without definite evidence of herniation of abdominal contents. 4.Contusion of the soft tissues anterior to the right shoulder. 5.Incidentally noted diffuse pancreatic calcifications indicatingchronic pancreatitis. 6.Incidentally noted 2 small peripheral pulmonary nodules. Report drafted by Marco Antonio Beltran (resident) Preliminary results were discussed with Dr. Ferrell by Dr. Beltran on 03/29/2021 9:[address] STEVIE Angel MD, [facility] have personally reviewedand interpreted this examination/study. This report was electronically signed by STEVIE RUSSELL MD, [facility] on 03/30/2021 1:07 PM . Abhi Pulido MD CT ORDERABLES * CT LUMBAR SPINE WO CONTRAST - T/L-spine trauma, Spine fracture (03/29/2021 9:27 PM GAS OPERATION MANAGER) Anatomical Region Laterality Modality Spine Computed Tomogra phy 03/29/2021 10:0 8 PM GAS OPERATION MANAGER Impressions 03/30/2021 2:30 PM GAS OPERATION MANAGER IMPRESSION: 1. No acute intracranial process. 2. No acute facial bone fractures identified. 3. No evidence of acute fracture in the cervical, thoracic, or lumbar spine. 4. Acute minimally displaced fracture of the left posterior iliac bone, mild diastases of the left sacroiliac joint, and partial visualization of nondisplaced left posterior acetabular fracture. 5. 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 Please refer to the separately dictated report of CT scan of the chest, abdomen and pelvis for intrathoracic and intra-abdominal findings. The report drafted by Freddy Palacio D.O. (Shank Archer) Dr. GRAY Angel have personally reviewed and interpreted this examination/study. This report was electronically signed by GRAY MIRELES on 03/30/2021 2:30 PM . Narrative 03/30/2021 2:30 PM GAS OPERATION MANAGER EXAMINATION: 1. CT OF THE HEAD WITHOUT CONTRAST 2. CT OF THE MAXILLOFACIAL BONES WITHOUT CONTRAST 3. CT OF THE CERVICAL SPINE WITHOUT CONTRAST 4. CT OF THE THORACIC SPINE WITHOUT CONTRAST 5. CT OF THE LUMBAR SPINE WITHOUT CONTRAST HISTORY: Trauma TECHNIQUE: CT of the head, cervical spine, and maxillofacial bones, orbits, and paranasal sinuses was performed without contrast according to standard protocol. Reformatted axial, sagittal, and coronal images of the thoracic and lumbar spine were obtained by the technologist from a concurrently performed body CT and sent to the workstation for review. COMPARISON: No prior study is available for comparison at the time of this dictation. FINDINGS: HEAD: No acute intra- or extra-axial hemorrhage is identified. The ventricles are of normal size, shape, and morphology. The basilar cisterns are patent. No mass effect or midline shift is seen. The gamez-white matter differentiation is normal. No visible white matter changes. No acute calvarial fracture is identified. 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 Otherwise the orbits and orbital contents appear normal. There are frothy secretions in the right maxillary sinus and mucosal thickening within the left maxillary sinus. The remainder of the paranasal sinuses are clear. The hard palate, mandible, and temporomandibular joints appear intact. 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 Dental caries and apical lucencies are noted. The patient is partially edentulous. No acute facial bone fractures are identified. The middle ear cavities and the mastoid air cells are clear. There is a small soft tissue laceration of the nasal bridge. CERVICAL SPINE: The alignment is normal. Vertebral bodies are normal in height without evidence of acute fracture. The craniocervical junction is normal. The intervertebral disc spaces are normal in heights. No posterior disc abnormality or central canal stenosis is seen. The facets appear normal. The uncovertebral joints appear normal. No neural foraminal stenosis is seen. No soft tissue abnormality is identified. THORACIC SPINE: The alignment is normal. A large hemangioma in T6 vertebral body and multilevel Schmorl's nodes in mid and lower thoracic endplates are noted. Vertebral bodies are normal in height without evidence of acute fracture. The intervertebral disc spaces are normal in heights without evidence of degenerative disc disease. No posterior disc abnormality or central canal stenosis is seen. The facets appear normal. No neural foraminal stenosis is seen. Calcification of the pancreas is extensively present, consistent with chronic sequelae of pancreatitis. LUMBAR SPINE: There is acute minimally displaced fracture of the left posterior iliac bone posteriorly, and mild diastases of the left sacroiliac joint (series 1, image 199 and 216). There is also partial visualization of nondisplaced left posterior acetabular fracture. The alignment is normal. Vertebral bodies are normal in height without evidence of acute fracture. The intervertebral disc spaces are normal in heights. No posterior disc abnormality, central canal stenosis or lateral recess stenosis is seen. The facets appear normal. No neural foraminal stenosis is seen. No soft tissue abnormality is identified. Procedure Note Gray Mireles MD - 03/30/2021 EXAMINATION: 1. CT OF THE HEAD WITHOUT CONTRAST 2. CT OF THE MAXILLOFACIAL BONES WITHOUT CONTRAST 3. CT OF THE CERVICAL SPINE WITHOUT CONTRAST 4. CT OF THE THORACIC SPINE WITHOUT CONTRAST 5. CT OF THE LUMBAR SPINE WITHOUT CONTRAST HISTORY: Trauma TECHNIQUE: CT of the head, cervical spine, and maxillofacial bones, orbits, and paranasal sinuses was performed without contrast accordingto standard protocol. Reformatted axial, sagittal, and coronal images ofthe thoracic and lumbar spine were obtained by the technologist from a concurrently performed body CT and sent to the workstation for review. COMPARISON: No prior study is available for comparison at the time ofthis dictation. FINDINGS: HEAD: No acute intra- or extra-axial hemorrhage is identified. The ventricles are of normal size, shape, and morphology. The basilar cisterns are patent. No mass effect or midline shift is seen. The gamez-white matter differentiation is normal. No visible white matter changes. No acute calvarial fracture is identified. MAXILLOFACIAL: There is evidence of a chronic left orbital floor blowout fracture with extraconal fat herniation through the defect into the left maxillarysinus (series 5, image 83). Otherwise the orbits and orbital contents appear normal. There are frothy secretions in the right maxillary sinus and mucosal thickening within the left maxillary sinus. The remainder of the paranasal sinuses are clear. The hard palate, mandible, and temporomandibular joints appear intact. 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 Dental caries and apical lucencies are noted. The patient is partially edentulous. No acute facial bone fractures are identified. The middle ear cavities and the mastoid air cells are clear. There is a small soft tissue laceration of the nasal bridge. CERVICAL SPINE: The alignment is normal. Vertebral bodies are normal in height without evidence of acute fracture. The craniocervical junction is normal. The intervertebral disc spaces are normal in heights. No posterior disc abnormality or central canal stenosis is seen. The facets appear normal. The uncovertebral joints appear normal. No neural foraminal stenosis is seen. No soft tissue abnormality is identified. THORACIC SPINE: The alignment is normal. A large hemangioma in T6 vertebral body and multilevel Schmorl's nodes in mid and lower thoracic endplates arenoted. Vertebral bodies are normal in height without evidence of acutefracture. The intervertebral disc spaces are normal in heights without evidence of degenerative disc disease. No posterior disc abnormality or centralcanal stenosis is seen. The facets appear normal. No neural foraminal stenosis is seen. Calcification of the pancreas is extensively present,consistent with chronic sequelae of pancreatitis. LUMBAR SPINE: There is acute minimally displaced fracture of the left posterior iliac bone posteriorly, and mild diastases of the left sacroiliac joint(series 1, image 199 and 216). There is also partial visualization ofnondisplaced left posterior acetabular fracture. The alignment is normal. Vertebral bodies are normal in height without evidence of acute fracture. The intervertebral disc spaces are normal in heights. No posterior disc abnormality, central canal stenosis orlateral recess stenosis is seen. The facets appear normal. No neural foraminal stenosis is seen. No soft tissue abnormality is identified. IMPRESSION: 1. No acute intracranial process. 2. No acute facial bone fractures identified. 3. No evidence of acute fracture in the cervical, thoracic, or lumbar spine. 4. Acute minimally displaced fracture of the left posterior iliac bone, mild diastases of the left sacroiliac joint, and partial visualizationof nondisplaced left posterior acetabular fracture. 5. 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 Please refer to the separately dictated report of CT scan of the chest, abdomen and pelvis for intrathoracic and intra-abdominal findings. The report drafted by Freddy Palacio D.O. (Shank Archer) IDr. GRAY have personally reviewed and interpreted this examination/study. This report was electronically signed by GRAY MIRELES on 03/30/2021 2:30PM . Abhi Pulido MD CT ORDERABLES * CT THORACIC SPINE WO CONTRAST - T/L-spine trauma, spine fracture (03/29/2021 9:27 PM GAS OPERATION MANAGER) Anatomical Region Laterality Modality Spine Computed Tomogra phy 03/29/2021 10:0 8 PM GAS OPERATION MANAGER Impressions 03/30/2021 2:30 PM GAS OPERATION MANAGER IMPRESSION: 1. No acute intracranial process. 2. No acute facial bone fractures identified. 3. No evidence of acute fracture in the cervical, thoracic, or lumbar spine. 4. Acute minimally displaced fracture of the left posterior iliac bone, mild diastases of the left sacroiliac joint, and partial visualization of nondisplaced left posterior acetabular fracture. 5. 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 Please refer to the separately dictated report of CT scan of the chest, abdomen and pelvis for intrathoracic and intra-abdominal findings. The report drafted by Freddy Palacio D.O. (Shank Archer) I, Dr. GRAY MIRELES have personally reviewed and interpreted this examination/study. This report was electronically signed by GRAY MIRELES on 03/30/2021 2:30 PM . Narrative 03/30/2021 2:30 PM GAS OPERATION MANAGER EXAMINATION: 1. CT OF THE HEAD WITHOUT CONTRAST 2. CT OF THE MAXILLOFACIAL BONES WITHOUT CONTRAST 3. CT OF THE CERVICAL SPINE WITHOUT CONTRAST 4. CT OF THE THORACIC SPINE WITHOUT CONTRAST 5. CT OF THE LUMBAR SPINE WITHOUT CONTRAST HISTORY: Trauma TECHNIQUE: CT of the head, cervical spine, and maxillofacial bones, orbits, and paranasal sinuses was performed without contrast according to standard protocol. Reformatted axial, sagittal, and coronal images of the thoracic and lumbar spine were obtained by the technologist from a concurrently performed body CT and sent to the workstation for review. COMPARISON: No prior study is available for comparison at the time of this dictation. FINDINGS: HEAD: No acute intra- or extra-axial hemorrhage is identified. The ventricles are of normal size, shape, and morphology. The basilar cisterns are patent. No mass effect or midline shift is seen. The gamez-white matter differentiation is normal. No visible white matter changes. No acute calvarial fracture is identified. 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 Otherwise the orbits and orbital contents appear normal. There are frothy secretions in the right maxillary sinus and mucosal thickening within the left maxillary sinus. The remainder of the paranasal sinuses are clear. The hard palate, mandible, and temporomandibular joints appear intact. 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 Dental caries and apical lucencies are noted. The patient is partially edentulous. No acute facial bone fractures are identified. The middle ear cavities and the mastoid air cells are clear. There is a small soft tissue laceration of the nasal bridge. CERVICAL SPINE: The alignment is normal. Vertebral bodies are normal in height without evidence of acute fracture. The craniocervical junction is normal. The intervertebral disc spaces are normal in heights. No posterior disc abnormality or central canal stenosis is seen. The facets appear normal. The uncovertebral joints appear normal. No neural foraminal stenosis is seen. No soft tissue abnormality is identified. THORACIC SPINE: The alignment is normal. A large hemangioma in T6 vertebral body and multilevel Schmorl's nodes in mid and lower thoracic endplates are noted. Vertebral bodies are normal in height without evidence of acute fracture. The intervertebral disc spaces are normal in heights without evidence of degenerative disc disease. No posterior disc abnormality or central canal stenosis is seen. The facets appear normal. No neural foraminal stenosis is seen. Calcification of the pancreas is extensively present, consistent with chronic sequelae of pancreatitis. LUMBAR SPINE: There is acute minimally displaced fracture of the left posterior iliac bone posteriorly, and mild diastases of the left sacroiliac joint (series 1, image 199 and 216). There is also partial visualization of nondisplaced left posterior acetabular fracture. The alignment is normal. Vertebral bodies are normal in height without evidence of acute fracture. The intervertebral disc spaces are normal in heights. No posterior disc abnormality, central canal stenosis or lateral recess stenosis is seen. The facets appear normal. No neural foraminal stenosis is seen. No soft tissue abnormality is identified. Procedure Note Gray Mireles MD - 03/30/2021 EXAMINATION: 1. CT OF THE HEAD WITHOUT CONTRAST 2. CT OF THE MAXILLOFACIAL BONES WITHOUT CONTRAST 3. CT OF THE CERVICAL SPINE WITHOUT CONTRAST 4. CT OF THE THORACIC SPINE WITHOUT CONTRAST 5. CT OF THE LUMBAR SPINE WITHOUT CONTRAST HISTORY: Trauma TECHNIQUE: CT of the head, cervical spine, and maxillofacial bones, orbits, and paranasal sinuses was performed without contrast accordingto standard protocol. Reformatted axial, sagittal, and coronal images ofthe thoracic and lumbar spine were obtained by the technologist from a concurrently performed body CT and sent to the workstation for review. COMPARISON: No prior study is available for comparison at the time ofthis dictation. FINDINGS: HEAD: No acute intra- or extra-axial hemorrhage is identified. The ventricles are of normal size, shape, and morphology. The basilar cisterns are patent. No mass effect or midline shift is seen. The gamez-white matter differentiation is normal. No visible white matter changes. No acute calvarial fracture is identified. MAXILLOFACIAL: There is evidence of a chronic left orbital floor blowout fracture with extraconal fat herniation through the defect into the left maxillarysinus (series 5, image 83). Otherwise the orbits and orbital contents appear normal. There are frothy secretions in the right maxillary sinus and mucosal thickening within the left maxillary sinus. The remainder of the paranasal sinuses are clear. The hard palate, mandible, and temporomandibular joints appear intact. 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 Dental caries and apical lucencies are noted. The patient is partially edentulous. No acute facial bone fractures are identified. The middle ear cavities and the mastoid air cells are clear. There is a small soft tissue laceration of the nasal bridge. CERVICAL SPINE: The alignment is normal. Vertebral bodies are normal in height without evidence of acute fracture. The craniocervical junction is normal. The intervertebral disc spaces are normal in heights. No posterior disc abnormality or central canal stenosis is seen. The facets appear normal. The uncovertebral joints appear normal. No neural foraminal stenosis is seen. No soft tissue abnormality is identified. THORACIC SPINE: The alignment is normal. A large hemangioma in T6 vertebral body and multilevel Schmorl's nodes in mid and lower thoracic endplates arenoted. Vertebral bodies are normal in height without evidence of acutefracture. The intervertebral disc spaces are normal in heights without evidence of degenerative disc disease. No posterior disc abnormality or centralcanal stenosis is seen. The facets appear normal. No neural foraminal stenosis is seen. Calcification of the pancreas is extensively present,consistent with chronic sequelae of pancreatitis. LUMBAR SPINE: There is acute minimally displaced fracture of the left posterior iliac bone posteriorly, and mild diastases of the left sacroiliac joint(series 1, image 199 and 216). There is also partial visualization ofnondisplaced left posterior acetabular fracture. The alignment is normal. Vertebral bodies are normal in height without evidence of acute fracture. The intervertebral disc spaces are normal in heights. No posterior disc abnormality, central canal stenosis orlateral recess stenosis is seen. The facets appear normal. No neural foraminal stenosis is seen. No soft tissue abnormality is identified. IMPRESSION: 1. No acute intracranial process. 2. No acute facial bone fractures identified. 3. No evidence of acute fracture in the cervical, thoracic, or lumbar spine. 4. Acute minimally displaced fracture of the left posterior iliac bone, mild diastases of the left sacroiliac joint, and partial visualizationof nondisplaced left posterior acetabular fracture. 5. 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 Please refer to the separately dictated report of CT scan of the chest, abdomen and pelvis for intrathoracic and intra-abdominal findings. The report drafted by Freddy Palacio D.O. (Shank Archer) IDr. GRAY have personally reviewed and interpreted this examination/study. This report was electronically signed by GRAY MIRELES on 03/30/2021 2:30PM . Abhi Pulido MD CT ORDERABLES * CT CERVICAL SPINE WO CONTRAST - C-Spine Trauma, Spine fracture (03/29/2021 9:27 PM GAS OPERATION MANAGER) Anatomical Region Laterality Modality Spine Computed Tomogra phy 03/29/2021 10:0 8 PM GAS OPERATION MANAGER Impressions 03/30/2021 2:30 PM GAS OPERATION MANAGER IMPRESSION: 1. No acute intracranial process. 2. No acute facial bone fractures identified. 3. No evidence of acute fracture in the cervical, thoracic, or lumbar spine. 4. Acute minimally displaced fracture of the left posterior iliac bone, mild diastases of the left sacroiliac joint, and partial visualization of nondisplaced left posterior acetabular fracture. 5. 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 Please refer to the separately dictated report of CT scan of the chest, abdomen and pelvis for intrathoracic and intra-abdominal findings. The report drafted by Freddy Palacio D.O. (Shank Archer) Dr. GRAY Angel have personally reviewed and interpreted this examination/study. This report was electronically signed by GRAY MIRELES on 03/30/2021 2:30 PM . Narrative 03/30/2021 2:30 PM GAS OPERATION MANAGER EXAMINATION: 1. CT OF THE HEAD WITHOUT CONTRAST 2. CT OF THE MAXILLOFACIAL BONES WITHOUT CONTRAST 3. CT OF THE CERVICAL SPINE WITHOUT CONTRAST 4. CT OF THE THORACIC SPINE WITHOUT CONTRAST 5. CT OF THE LUMBAR SPINE WITHOUT CONTRAST HISTORY: Trauma TECHNIQUE: CT of the head, cervical spine, and maxillofacial bones, orbits, and paranasal sinuses was performed without contrast according to standard protocol. Reformatted axial, sagittal, and coronal images of the thoracic and lumbar spine were obtained by the technologist from a concurrently performed body CT and sent to the workstation for review. COMPARISON: No prior study is available for comparison at the time of this dictation. FINDINGS: HEAD: No acute intra- or extra-axial hemorrhage is identified. The ventricles are of normal size, shape, and morphology. The basilar cisterns are patent. No mass effect or midline shift is seen. The gamez-white matter differentiation is normal. No visible white matter changes. No acute calvarial fracture is identified. 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 Otherwise the orbits and orbital contents appear normal. There are frothy secretions in the right maxillary sinus and mucosal thickening within the left maxillary sinus. The remainder of the paranasal sinuses are clear. The hard palate, mandible, and temporomandibular joints appear intact. 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 Dental caries and apical lucencies are noted. The patient is partially edentulous. No acute facial bone fractures are identified. The middle ear cavities and the mastoid air cells are clear. There is a small soft tissue laceration of the nasal bridge. CERVICAL SPINE: The alignment is normal. Vertebral bodies are normal in height without evidence of acute fracture. The craniocervical junction is normal. The intervertebral disc spaces are normal in heights. No posterior disc abnormality or central canal stenosis is seen. The facets appear normal. The uncovertebral joints appear normal. No neural foraminal stenosis is seen. No soft tissue abnormality is identified. THORACIC SPINE: The alignment is normal. A large hemangioma in T6 vertebral body and multilevel Schmorl's nodes in mid and lower thoracic endplates are noted. Vertebral bodies are normal in height without evidence of acute fracture. The intervertebral disc spaces are normal in heights without evidence of degenerative disc disease. No posterior disc abnormality or central canal stenosis is seen. The facets appear normal. No neural foraminal stenosis is seen. Calcification of the pancreas is extensively present, consistent with chronic sequelae of pancreatitis. LUMBAR SPINE: There is acute minimally displaced fracture of the left posterior iliac bone posteriorly, and mild diastases of the left sacroiliac joint (series 1, image 199 and 216). There is also partial visualization of nondisplaced left posterior acetabular fracture. The alignment is normal. Vertebral bodies are normal in height without evidence of acute fracture. The intervertebral disc spaces are normal in heights. No posterior disc abnormality, central canal stenosis or lateral recess stenosis is seen. The facets appear normal. No neural foraminal stenosis is seen. No soft tissue abnormality is identified. Procedure Note Gray Mireles MD - 03/30/2021 EXAMINATION: 1. CT OF THE HEAD WITHOUT CONTRAST 2. CT OF THE MAXILLOFACIAL BONES WITHOUT CONTRAST 3. CT OF THE CERVICAL SPINE WITHOUT CONTRAST 4. CT OF THE THORACIC SPINE WITHOUT CONTRAST 5. CT OF THE LUMBAR SPINE WITHOUT CONTRAST HISTORY: Trauma TECHNIQUE: CT of the head, cervical spine, and maxillofacial bones, orbits, and paranasal sinuses was performed without contrast accordingto standard protocol. Reformatted axial, sagittal, and coronal images ofthe thoracic and lumbar spine were obtained by the technologist from a concurrently performed body CT and sent to the workstation for review. COMPARISON: No prior study is available for comparison at the time ofthis dictation. FINDINGS: HEAD: No acute intra- or extra-axial hemorrhage is identified. The ventricles are of normal size, shape, and morphology. The basilar cisterns are patent. No mass effect or midline shift is seen. The gamez-white matter differentiation is normal. No visible white matter changes. No acute calvarial fracture is identified. MAXILLOFACIAL: There is evidence of a chronic left orbital floor blowout fracture with extraconal fat herniation through the defect into the left maxillarysinus (series 5, image 83). Otherwise the orbits and orbital contents appear normal. There are frothy secretions in the right maxillary sinus and mucosal thickening within the left maxillary sinus. The remainder of the paranasal sinuses are clear. The hard palate, mandible, and temporomandibular joints appear intact. 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 Dental caries and apical lucencies are noted. The patient is partially edentulous. No acute facial bone fractures are identified. The middle ear cavities and the mastoid air cells are clear. There is a small soft tissue laceration of the nasal bridge. CERVICAL SPINE: The alignment is normal. Vertebral bodies are normal in height without evidence of acute fracture. The craniocervical junction is normal. The intervertebral disc spaces are normal in heights. No posterior disc abnormality or central canal stenosis is seen. The facets appear normal. The uncovertebral joints appear normal. No neural foraminal stenosis is seen. No soft tissue abnormality is identified. THORACIC SPINE: The alignment is normal. A large hemangioma in T6 vertebral body and multilevel Schmorl's nodes in mid and lower thoracic endplates arenoted. Vertebral bodies are normal in height without evidence of acutefracture. The intervertebral disc spaces are normal in heights without evidence of degenerative disc disease. No posterior disc abnormality or centralcanal stenosis is seen. The facets appear normal. No neural foraminal stenosis is seen. Calcification of the pancreas is extensively present,consistent with chronic sequelae of pancreatitis. LUMBAR SPINE: There is acute minimally displaced fracture of the left posterior iliac bone posteriorly, and mild diastases of the left sacroiliac joint(series 1, image 199 and 216). There is also partial visualization ofnondisplaced left posterior acetabular fracture. The alignment is normal. Vertebral bodies are normal in height without evidence of acute fracture. The intervertebral disc spaces are normal in heights. No posterior disc abnormality, central canal stenosis orlateral recess stenosis is seen. The facets appear normal. No neural foraminal stenosis is seen. No soft tissue abnormality is identified. IMPRESSION: 1. No acute intracranial process. 2. No acute facial bone fractures identified. 3. No evidence of acute fracture in the cervical, thoracic, or lumbar spine. 4. Acute minimally displaced fracture of the left posterior iliac bone, mild diastases of the left sacroiliac joint, and partial visualizationof nondisplaced left posterior acetabular fracture. 5. 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 Please refer to the separately dictated report of CT scan of the chest, abdomen and pelvis for intrathoracic and intra-abdominal findings. The report drafted by Freddy Palacio D.O. (Shank Archer) Dr. GRAY Angel have personally reviewed and interpreted this examination/study. This report was electronically signed by GRAY MIRELES on 03/30/2021 2:30PM . Abhi Pulido MD CT ORDERABLES * CT FACIAL BONES WO CONTRAST - Facial trauma, fx suspected, blunt (03/29/2021 9:27 PM GAS OPERATION MANAGER) Anatomical Region Laterality Modality Head Computed Tomogra phy 03/29/2021 10:0 8 PM GAS OPERATION MANAGER Impressions 03/30/2021 2:30 PM GAS OPERATION MANAGER IMPRESSION: 1. No acute intracranial process. 2. No acute facial bone fractures identified. 3. No evidence of acute fracture in the cervical, thoracic, or lumbar spine. 4. Acute minimally displaced fracture of the left posterior iliac bone, mild diastases of the left sacroiliac joint, and partial visualization of nondisplaced left posterior acetabular fracture. 5. 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 Please refer to the separately dictated report of CT scan of the chest, abdomen and pelvis for intrathoracic and intra-abdominal findings. The report drafted by Freddy Palacio D.O. (Shank Archer) Dr. GRAY Angel have personally reviewed and interpreted this examination/study. This report was electronically signed by GRAY MIRELES on 03/30/2021 2:30 PM . Narrative 03/30/2021 2:30 PM GAS OPERATION MANAGER EXAMINATION: 1. CT OF THE HEAD WITHOUT CONTRAST 2. CT OF THE MAXILLOFACIAL BONES WITHOUT CONTRAST 3. CT OF THE CERVICAL SPINE WITHOUT CONTRAST 4. CT OF THE THORACIC SPINE WITHOUT CONTRAST 5. CT OF THE LUMBAR SPINE WITHOUT CONTRAST HISTORY: Trauma TECHNIQUE: CT of the head, cervical spine, and maxillofacial bones, orbits, and paranasal sinuses was performed without contrast according to standard protocol. Reformatted axial, sagittal, and coronal images of the thoracic and lumbar spine were obtained by the technologist from a concurrently performed body CT and sent to the workstation for review. COMPARISON: No prior study is available for comparison at the time of this dictation. FINDINGS: HEAD: No acute intra- or extra-axial hemorrhage is identified. The ventricles are of normal size, shape, and morphology. The basilar cisterns are patent. No mass effect or midline shift is seen. The gamez-white matter differentiation is normal. No visible white matter changes. No acute calvarial fracture is identified. 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 Otherwise the orbits and orbital contents appear normal. There are frothy secretions in the right maxillary sinus and mucosal thickening within the left maxillary sinus. The remainder of the paranasal sinuses are clear. The hard palate, mandible, and temporomandibular joints appear intact. 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 Dental caries and apical lucencies are noted. The patient is partially edentulous. No acute facial bone fractures are identified. The middle ear cavities and the mastoid air cells are clear. There is a small soft tissue laceration of the nasal bridge. CERVICAL SPINE: The alignment is normal. Vertebral bodies are normal in height without evidence of acute fracture. The craniocervical junction is normal. The intervertebral disc spaces are normal in heights. No posterior disc abnormality or central canal stenosis is seen. The facets appear normal. The uncovertebral joints appear normal. No neural foraminal stenosis is seen. No soft tissue abnormality is identified. THORACIC SPINE: The alignment is normal. A large hemangioma in T6 vertebral body and multilevel Schmorl's nodes in mid and lower thoracic endplates are noted. Vertebral bodies are normal in height without evidence of acute fracture. The intervertebral disc spaces are normal in heights without evidence of degenerative disc disease. No posterior disc abnormality or central canal stenosis is seen. The facets appear normal. No neural foraminal stenosis is seen. Calcification of the pancreas is extensively present, consistent with chronic sequelae of pancreatitis. LUMBAR SPINE: There is acute minimally displaced fracture of the left posterior iliac bone posteriorly, and mild diastases of the left sacroiliac joint (series 1, image 199 and 216). There is also partial visualization of nondisplaced left posterior acetabular fracture. The alignment is normal. Vertebral bodies are normal in height without evidence of acute fracture. The intervertebral disc spaces are normal in heights. No posterior disc abnormality, central canal stenosis or lateral recess stenosis is seen. The facets appear normal. No neural foraminal stenosis is seen. No soft tissue abnormality is identified. Procedure Note Gray Mireles MD - 03/30/2021 EXAMINATION: 1. CT OF THE HEAD WITHOUT CONTRAST 2. CT OF THE MAXILLOFACIAL BONES WITHOUT CONTRAST 3. CT OF THE CERVICAL SPINE WITHOUT CONTRAST 4. CT OF THE THORACIC SPINE WITHOUT CONTRAST 5. CT OF THE LUMBAR SPINE WITHOUT CONTRAST HISTORY: Trauma TECHNIQUE: CT of the head, cervical spine, and maxillofacial bones, orbits, and paranasal sinuses was performed without contrast accordingto standard protocol. Reformatted axial, sagittal, and coronal images ofthe thoracic and lumbar spine were obtained by the technologist from a concurrently performed body CT and sent to the workstation for review. COMPARISON: No prior study is available for comparison at the time ofthis dictation. FINDINGS: HEAD: No acute intra- or extra-axial hemorrhage is identified. The ventricles are of normal size, shape, and morphology. The basilar cisterns are patent. No mass effect or midline shift is seen. The gamez-white matter differentiation is normal. No visible white matter changes. No acute calvarial fracture is identified. MAXILLOFACIAL: There is evidence of a chronic left orbital floor blowout fracture with extraconal fat herniation through the defect into the left maxillarysinus (series 5, image 83). Otherwise the orbits and orbital contents appear normal. There are frothy secretions in the right maxillary sinus and mucosal thickening within the left maxillary sinus. The remainder of the paranasal sinuses are clear. The hard palate, mandible, and temporomandibular joints appear intact. 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 Dental caries and apical lucencies are noted. The patient is partially edentulous. No acute facial bone fractures are identified. The middle ear cavities and the mastoid air cells are clear. There is a small soft tissue laceration of the nasal bridge. CERVICAL SPINE: The alignment is normal. Vertebral bodies are normal in height without evidence of acute fracture. The craniocervical junction is normal. The intervertebral disc spaces are normal in heights. No posterior disc abnormality or central canal stenosis is seen. The facets appear normal. The uncovertebral joints appear normal. No neural foraminal stenosis is seen. No soft tissue abnormality is identified. THORACIC SPINE: The alignment is normal. A large hemangioma in T6 vertebral body and multilevel Schmorl's nodes in mid and lower thoracic endplates arenoted. Vertebral bodies are normal in height without evidence of acutefracture. The intervertebral disc spaces are normal in heights without evidence of degenerative disc disease. No posterior disc abnormality or centralcanal stenosis is seen. The facets appear normal. No neural foraminal stenosis is seen. Calcification of the pancreas is extensively present,consistent with chronic sequelae of pancreatitis. LUMBAR SPINE: There is acute minimally displaced fracture of the left posterior iliac bone posteriorly, and mild diastases of the left sacroiliac joint(series 1, image 199 and 216). There is also partial visualization ofnondisplaced left posterior acetabular fracture. The alignment is normal. Vertebral bodies are normal in height without evidence of acute fracture. The intervertebral disc spaces are normal in heights. No posterior disc abnormality, central canal stenosis orlateral recess stenosis is seen. The facets appear normal. No neural foraminal stenosis is seen. No soft tissue abnormality is identified. IMPRESSION: 1. No acute intracranial process. 2. No acute facial bone fractures identified. 3. No evidence of acute fracture in the cervical, thoracic, or lumbar spine. 4. Acute minimally displaced fracture of the left posterior iliac bone, mild diastases of the left sacroiliac joint, and partial visualizationof nondisplaced left posterior acetabular fracture. 5. 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 Please refer to the separately dictated report of CT scan of the chest, abdomen and pelvis for intrathoracic and intra-abdominal findings. The report drafted by Freddy Palacio D.O. (Shank Archer) IDr. GRAY have personally reviewed and interpreted this examination/study. This report was electronically signed by GRAY MIRELES on 03/30/2021 2:30PM . Abhi Pulido MD CT ORDERABLES * CT HEAD WO CONTRAST - Head Trauma, CSF leak, mental status changes (03/29/2021 9:27 PM GAS OPERATION MANAGER) Anatomical Region Laterality Modality Head Computed Tomogra phy 03/29/2021 10:0 8 PM GAS OPERATION MANAGER Impressions 03/30/2021 2:30 PM GAS OPERATION MANAGER IMPRESSION: 1. No acute intracranial process. 2. No acute facial bone fractures identified. 3. No evidence of acute fracture in the cervical, thoracic, or lumbar spine. 4. Acute minimally displaced fracture of the left posterior iliac bone, mild diastases of the left sacroiliac joint, and partial visualization of nondisplaced left posterior acetabular fracture. 5. 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 Please refer to the separately dictated report of CT scan of the chest, abdomen and pelvis for intrathoracic and intra-abdominal findings. The report drafted by Freddy Palacio D.O. (Shank Archer) I, Dr. GRAY MIRELES have personally reviewed and interpreted this examination/study. This report was electronically signed by GRAY MIRELES on 03/30/2021 2:30 PM . Narrative 03/30/2021 2:30 PM GAS OPERATION MANAGER EXAMINATION: 1. CT OF THE HEAD WITHOUT CONTRAST 2. CT OF THE MAXILLOFACIAL BONES WITHOUT CONTRAST 3. CT OF THE CERVICAL SPINE WITHOUT CONTRAST 4. CT OF THE THORACIC SPINE WITHOUT CONTRAST 5. CT OF THE LUMBAR SPINE WITHOUT CONTRAST HISTORY: Trauma TECHNIQUE: CT of the head, cervical spine, and maxillofacial bones, orbits, and paranasal sinuses was performed without contrast according to standard protocol. Reformatted axial, sagittal, and coronal images of the thoracic and lumbar spine were obtained by the technologist from a concurrently performed body CT and sent to the workstation for review. COMPARISON: No prior study is available for comparison at the time of this dictation. FINDINGS: HEAD: No acute intra- or extra-axial hemorrhage is identified. The ventricles are of normal size, shape, and morphology. The basilar cisterns are patent. No mass effect or midline shift is seen. The gamez-white matter differentiation is normal. No visible white matter changes. No acute calvarial fracture is identified. 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 Otherwise the orbits and orbital contents appear normal. There are frothy secretions in the right maxillary sinus and mucosal thickening within the left maxillary sinus. The remainder of the paranasal sinuses are clear. The hard palate, mandible, and temporomandibular joints appear intact. 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 Dental caries and apical lucencies are noted. The patient is partially edentulous. No acute facial bone fractures are identified. The middle ear cavities and the mastoid air cells are clear. There is a small soft tissue laceration of the nasal bridge. CERVICAL SPINE: The alignment is normal. Vertebral bodies are normal in height without evidence of acute fracture. The craniocervical junction is normal. The intervertebral disc spaces are normal in heights. No posterior disc abnormality or central canal stenosis is seen. The facets appear normal. The uncovertebral joints appear normal. No neural foraminal stenosis is seen. No soft tissue abnormality is identified. THORACIC SPINE: The alignment is normal. A large hemangioma in T6 vertebral body and multilevel Schmorl's nodes in mid and lower thoracic endplates are noted. Vertebral bodies are normal in height without evidence of acute fracture. The intervertebral disc spaces are normal in heights without evidence of degenerative disc disease. No posterior disc abnormality or central canal stenosis is seen. The facets appear normal. No neural foraminal stenosis is seen. Calcification of the pancreas is extensively present, consistent with chronic sequelae of pancreatitis. LUMBAR SPINE: There is acute minimally displaced fracture of the left posterior iliac bone posteriorly, and mild diastases of the left sacroiliac joint (series 1, image 199 and 216). There is also partial visualization of nondisplaced left posterior acetabular fracture. The alignment is normal. Vertebral bodies are normal in height without evidence of acute fracture. The intervertebral disc spaces are normal in heights. No posterior disc abnormality, central canal stenosis or lateral recess stenosis is seen. The facets appear normal. No neural foraminal stenosis is seen. No soft tissue abnormality is identified. Procedure Note Gray Mireles MD - 03/30/2021 EXAMINATION: 1. CT OF THE HEAD WITHOUT CONTRAST 2. CT OF THE MAXILLOFACIAL BONES WITHOUT CONTRAST 3. CT OF THE CERVICAL SPINE WITHOUT CONTRAST 4. CT OF THE THORACIC SPINE WITHOUT CONTRAST 5. CT OF THE LUMBAR SPINE WITHOUT CONTRAST HISTORY: Trauma TECHNIQUE: CT of the head, cervical spine, and maxillofacial bones, orbits, and paranasal sinuses was performed without contrast accordingto standard protocol. Reformatted axial, sagittal, and coronal images ofthe thoracic and lumbar spine were obtained by the technologist from a concurrently performed body CT and sent to the workstation for review. COMPARISON: No prior study is available for comparison at the time ofthis dictation. FINDINGS: HEAD: No acute intra- or extra-axial hemorrhage is identified. The ventricles are of normal size, shape, and morphology. The basilar cisterns are patent. No mass effect or midline shift is seen. The gamez-white matter differentiation is normal. No visible white matter changes. No acute calvarial fracture is identified. MAXILLOFACIAL: There is evidence of a chronic left orbital floor blowout fracture with extraconal fat herniation through the defect into the left maxillarysinus (series 5, image 83). Otherwise the orbits and orbital contents appear normal. There are frothy secretions in the right maxillary sinus and mucosal thickening within the left maxillary sinus. The remainder of the paranasal sinuses are clear. The hard palate, mandible, and temporomandibular joints appear intact. 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 Dental caries and apical lucencies are noted. The patient is partially edentulous. No acute facial bone fractures are identified. The middle ear cavities and the mastoid air cells are clear. There is a small soft tissue laceration of the nasal bridge. CERVICAL SPINE: The alignment is normal. Vertebral bodies are normal in height without evidence of acute fracture. The craniocervical junction is normal. The intervertebral disc spaces are normal in heights. No posterior disc abnormality or central canal stenosis is seen. The facets appear normal. The uncovertebral joints appear normal. No neural foraminal stenosis is seen. No soft tissue abnormality is identified. THORACIC SPINE: The alignment is normal. A large hemangioma in T6 vertebral body and multilevel Schmorl's nodes in mid and lower thoracic endplates arenoted. Vertebral bodies are normal in height without evidence of acutefracture. The intervertebral disc spaces are normal in heights without evidence of degenerative disc disease. No posterior disc abnormality or centralcanal stenosis is seen. The facets appear normal. No neural foraminal stenosis is seen. Calcification of the pancreas is extensively present,consistent with chronic sequelae of pancreatitis. LUMBAR SPINE: There is acute minimally displaced fracture of the left posterior iliac bone posteriorly, and mild diastases of the left sacroiliac joint(series 1, image 199 and 216). There is also partial visualization ofnondisplaced left posterior acetabular fracture. The alignment is normal. Vertebral bodies are normal in height without evidence of acute fracture. The intervertebral disc spaces are normal in heights. No posterior disc abnormality, central canal stenosis orlateral recess stenosis is seen. The facets appear normal. No neural foraminal stenosis is seen. No soft tissue abnormality is identified. IMPRESSION: 1. No acute intracranial process. 2. No acute facial bone fractures identified. 3. No evidence of acute fracture in the cervical, thoracic, or lumbar spine. 4. Acute minimally displaced fracture of the left posterior iliac bone, mild diastases of the left sacroiliac joint, and partial visualizationof nondisplaced left posterior acetabular fracture. 5. 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 Please refer to the separately dictated report of CT scan of the chest, abdomen and pelvis for intrathoracic and intra-abdominal findings. The report drafted by Freddy Palacio D.O. (Shank Archer) I, Dr. GRAY MIRELES have personally reviewed and interpreted this examination/study. This report was electronically signed by GRAY MIRELES on 03/30/2021 2:30PM . Abhi Pulido MD CT ORDERABLES * SARS-COV-2 (COVID-19)+INFLU A+B PCR RAPID (03/29/2021 9:27 PM GAS OPERATION MANAGER) COVID-19 PCR Not detected Not detected 03/29/20 21 10:05 PM GAS OPERATION MANAGER [facility] Influenza A Rapid BRENDAN Not Detected Not Detected 03/29/2021 10:05 PM GAS OPERATION MANAGER [facility] Influenza B BRENDAN Rapid Not Detected Not Detected 03/29/2021 10:05 PM [facility] Microbiology SPECIMEN FROM NASOPHARYNGEAL STRUCTURE / Unknown Collection / Unknown 03/29/2021 9:27 PM GAS OPERATION MANAGER 03/29/2021 9:34 PM GAS OPERATION MANAGER [facility] - 03/29/2021 10:05 PM GAS OPERATION MANAGER Influenza assay performed by [employer]. Results do not exclude the possibility of a mixed viral infection. NOTE: Detecting and identifying specific viral nucleic acids from individuals exhibiting signs and symptoms of respiratory infection aids in the diagnosis of respiratory infection, if used in conjunction with other clinical and laboratory findings. The results of this test should not be used as the sole basis for diagnosis, treatment, or patient management decisions. This nucleic acid amplification assay performance was validated by [facility]. This test has been authorized by the Food and Drug administration (FDA)under an Emergency Use Authorization (EUA). This test has been validated in accordance with the FDA's guidance document Policy for Diagnostic Testing in Laboratories Certified to perform High Complexity Testing under CLIA prior to Emergency Use Authorization for Coronavirus Disease-2019 during the Public Health Emergency issued on May 28, 2019. FDA independent review of this validation is pending. This test is only authorized for the duration of time the declaration that circumstances exist justifying the authorization of emergency use of in vitro diagnostic tests for detection of SARS-CoV-2 virus and/or diagnosis of COVID-19 infection under section 564(b)(1) of the Act, 21 U.S.C 360bbb-3 (b)(1), unless the authorization is terminated or revoked sooner. Fact Sheets for this EUA assay are available upon request. Abhi Pulido MD LAB - MICROBIOL OGY ORDERABLES [address] [id number], [facility] [[email or web address]] [phone] * BLOOD TYPE VERIFICATION (03/29/2021 9:19 PM GAS OPERATION MANAGER) ABO Rh A POS 03/29/2021 10:12 PM GAS OPERATION MANAGER [facility] Blood Bank BLOOD SPECIMEN / Unknown Venipuncture / Unknown 03/29/2021 9:19 PM GAS OPERATION MANAGER 03/29/2021 9:28 PM GAS OPERATION MANAGER Abhi Pulido MD LAB - BLOOD BAN K ORDERABLES [facility] [address] [place] [id number] [place] [phone] * XR PELVIS 1 OR 2VW (03/29/2021 9:10 PM GAS OPERATION MANAGER) Anatomical Region Laterality Modality Pelvis Radiographic Ilene ging 03/30/2021 1:11 AM GAS OPERATION MANAGER Impressions 03/30/2021 10:04 AM GAS OPERATION MANAGER IMPRESSION: There is a minimally displaced fracture of the left acetabulum. A mildly displaced fracture of the posterior left iliac bone is not well visualized on the current study. Please see the dedicated CT for further details. Diastases of the left sacroiliac joint is not well visualized. Dictated by Marco Antonio Beltran MD (chairman president and chief executive officer). I, Dr. MATTIE RICHARDSON MD have personally reviewed and interpreted this examination/study. This report was electronically signed by MATTIE RICHARDSON MD on 03/30/2021 10:04 AM . Narrative 03/30/2021 10:04 AM GAS OPERATION MANAGER EXAMINATION: XR PELVIS 1 OR 2VW HISTORY: Trauma Fracture suspected COMPARISON: CT chest abdomen pelvis from the same day, 03/29/2021 FINDINGS: There is a minimally displaced fracture of the left acetabulum. A mildly displaced fracture of the posterior left iliac bone is not well visualized on the current study. Diastases of the left sacroiliac joint is not well visualized. The femoral heads appear well-seated within their respective acetabula. The pubic symphysis is intact. The osseous architecture and density are normal. Procedure Note Mattie Richardson MD - 03/30/2021 EXAMINATION: XR PELVIS 1 OR 2VW HISTORY: Trauma Fracture suspected COMPARISON: CT chest abdomen pelvis from the same day, 03/29/2021 FINDINGS: There is a minimally displaced fracture of the left acetabulum. A mildly displaced fracture of the posterior left iliac bone is not wellvisualized on the current study. Diastases of the left sacroiliac joint is not well visualized. The femoral heads appear well-seated within their respective acetabula. The pubic symphysis is intact. The osseous architecture and density are normal. IMPRESSION: There is a minimally displaced fracture of the left acetabulum. A mildly displaced fracture of the posterior left iliac bone is not well visualized on the current study. Please see the dedicated CT for further details. Diastases of the left sacroiliac joint is not well visualized. Dictated by Marco Antonio Beltran MD (chairman president and chief executive officer). Dr. MATTIE Angel MD have personally reviewed and interpreted this examination/study. This report was electronically signed by MATTIE RICHARDSON MD on 03/30/2021 10:04 AM . Abhi Pulido MD DIAGNOSTIC IMAG ING ORDERABLES * XR CHEST 1VW PORTABLE (03/29/2021 9:09 PM GAS OPERATION MANAGER) Anatomical Region Laterality Modality Chest Radiographic Ilene ging 03/30/2021 1:03 AM GAS OPERATION MANAGER Impressions 03/30/2021 10:03 AM GAS OPERATION MANAGER IMPRESSION: No acute pulmonary process. Dictated by Marco Antonio Beltran MD (chairman president and chief executive officer). Dr. MATTIE Angel MD have personally reviewed and interpreted this examination/study. This report was electronically signed by MATTIE RICHARDSON MD on 03/30/2021 10:03 AM . Narrative 03/30/2021 10:03 AM GAS OPERATION MANAGER EXAMINATION: XR CHEST 1VW PORTABLE HISTORY: Trauma COMPARISON: No prior study is available for comparison. FINDINGS: There is no focal consolidation, pleural effusion, or pneumothorax. The cardiomediastinal silhouette is normal. The visible bony thorax is intact. Procedure Note Mattie Richardson MD - 03/30/2021 EXAMINATION: XR CHEST 1VW PORTABLE HISTORY: Trauma COMPARISON: No prior study is available for comparison. FINDINGS: There is no focal consolidation, pleural effusion, or pneumothorax. The cardiomediastinal silhouette is normal. The visible bony thorax isintact. IMPRESSION: No acute pulmonary process. Dictated by Marco Antonio Beltran MD (chairman president and chief executive officer). Dr. MATTIE Angel MD have personally reviewed and interpreted this examination/study. This report was electronically signed by MATTIE RICHARDSON MD on 03/30/2021 10:03 AM . 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 There are fractures of the distal tibia and fibula as well as the cuneiform bones. Evaluation for fracture details is limited on this single lateral view provided. Dictated by Marco Antonio Beltran MD (chairman president and chief executive officer). Dr. SUE Angel have personally reviewed and interpreted this examination/study. This report was electronically signed by SUE LEZAMA on 03/31/2021 9:53 PM . Narrative 03/31/2021 9:53 PM GAS OPERATION MANAGER EXAMINATION: XR ANKLE LEFT 1VW HISTORY: T14.90XA: Trauma COMPARISON: No prior study is available for comparison. Procedure Note Sue Lezama MD - 03/31/2021 EXAMINATION: XR ANKLE LEFT 1VW HISTORY: T14.90XA: Trauma COMPARISON: No prior study is available for comparison. 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 There arefractures of the distal tibia and fibula as well as the cuneiform bones.Evaluation for fracture details is limited on this single lateral view provided. Dictated by Marco Antonio Beltran MD (chairman president and chief executive officer). Dr. SUE Angel have personally reviewed and interpreted this examination/study. This report was electronically signed by SUE LEZAMA on 03/31/2021 9:53 PM. Abhi Pulido MD DIAGNOSTIC IMAG ING ORDERABLES * (ABNORMAL) ALCOHOL ETHYL BLOOD (03/29/2021 8:43 PM GAS OPERATION MANAGER) Ethanol (mg/dL) 63(H) <10 mg/dL 9:11 PM GAS OPERATION MANAGER [facility] Ethanol Calculated (g/dL) 0.063(H) <0.010 g/dL 03/29/2021 9:11 PM GAS OPERATION MANAGER [facility] Blood BLOOD SPECIMEN / Unknown Venipuncture / Unknown 03/29/2021 8:43 PM GAS OPERATION MANAGER 03/29/2021 8:49 PM GAS OPERATION MANAGER Narrative [facility] - 03/29/2021 9:11 PM GAS OPERATION MANAGER Ethanol Interp <10: None Detected. Depression of [employer]NER MARKET[employer] INTERN: >100 mg/dl Potentially Critical: >250 mg/dl Potentially Fatal >400 mg/dl Ethanol in the patient's blood will contribute to the osmolar gap. Ethanol's contribution to the osmolar gap can be estimated by dividing the concentration of ethanol in mg/dL by 4.6. This test is for clinical use only and does not equal a CATE for legal purposes. Abhi Pulido MD LAB - CHEMISTRY ORDERABLES [facility] [address] [place] [id number], [facility] [[email or web address]] [phone]
--- OUTSIDE RECORDS SUMMARY | 2024-06-07 18:20 | XMS_ITS | Clinical Summary ---
Author Organization [facility] Address [address] [place] [address] Care Team Providers Care Sample Room Supervisor Name Role Phone Unavailable Primary Care Provider Unavailabl e Source Comments [facility],non-owned Affiliates and Associated Physician Practices is amultiple site organization consisting of ambulatory clinics and hospital sitesin [place], [place], [place] and [place]. This disclosure is being madepursuant to the Care Everywhere program and may not contain all information available regarding this patient. Last updated 17.[facility] [employer] Allergies No known active allergies Medications * [...] Comments Blood Pressure 120/74 05/06/2021 5:45 PM ASPHALT HEATER TENDER Pulse 85 05/06/2021 5:45 PM ASPHALT HEATER TENDER Temperature 36.6 C (97.9 F) 05/06/2021 5:12 PM ASPHALT HEATER TENDER Respiratory Rate 13 05/06/2021 5:45 PM ASPHALT HEATER TENDER Oxygen Saturation 99% 05/06/2021 5:45 PM ASPHALT HEATER TENDER Inhaled Oxygen Concentration 21% 05/06/2021 5 :05 PM ASPHALT HEATER TENDER Weight 83 kg (183 lb) 12/10/2021 10:23 AM CDT Height 193 cm (6' 4 ) 12/10/2021 10:23 AM CDT Body Mass Index 22.28 12/10/2021 10:23 AM CDT Plan of Treatment Health Maintenance Due Date Last Done Comments LIPID TESTING 1983 HIV SCREENING 08/03/1998 HEPATITIS C SCREENING 07/30/2001 DTAP/TDAP/TD VACCINES (1 - Tdap) 08/03/2002 HEPATITIS B VACCINE (1 of 3 - 19+ 3-dose series) 08/03/2002 PNEUMOCOCCAL VACCINE (1 of 2 - PCV) 08/03/2002 COVID-19 VACCINE (1 - 2023-2 5 season) 2023 INFLUENZA VACCINE (#1) 2023 DEPRESSION SCREENING 03/30/2024 ZOSTER VACCINE (1 of 2) 08/03/2033 HIB VACCINE Aged Out No longer eligi ble based on patient's age to complete this topic HPV VACCINE Aged Out No longer eligi ble based on patient's age to complete this topic MENINGOCOCCAL (Group B) VACCINE Aged Out No longer eligible based on patient's age to complete this topic MENINGOCOCCAL VACCINE Aged Out No jeyson anshu eligible based on patient's age to complete this topic Goals Goal Patient Goal Type Associated Problems Recent Progress Patient-Stated? Author Skin Integrity General No Chandler Hall, RN Note: Expected end date: 3 months Skin integrity is maintained or improved. Interventions: Continue to do daily dry dressings to Sahra conte. Advance Directives * Full Code (Latest Code Status on File) Date Activated Date Inactivated Comments 03/30/2021 3:36 AM 04/09/2021 12:07 AM
--- OUTSIDE RECORDS SUMMARY | 2024-06-07 18:20 | XMS_ITS | Data Portability ---
Author Organization [facility] Address [address] [place] [address] Care Team Providers Care Composing Machine Operator/Tender Name Role Phone CHELITA BEDOYA Primary Care Provider Assessment No assessment recorded. Plan of Treatment Reminders Order Date Submit Date Provider Last Modified By Organization Details Last Modified Time Details Appointments None recorded . Lab CMP, serum or plasma 2016 017 [facility] (Lab), [address], [place], [address], 7 16:02:43 CBC w/ auto diff 2016 017 [facility] (Lab), [address], [place], [address], 7 16:04:35 HbA1c (hemoglo bin A1c), blood 2016 017 [facility] (Lab), [address], [place], [address], 7 02:07:39 urinalys is, dipstick , reflex micro 2016 017 [facility] [address], [place], [address], 7 15:24:07 TSH, serum or plasma 2016 017 [facility] (Lab), [address], [place], [address], 7 15:37:26 T4, free, serum 2016 017 [facility] [address] [place], [address], 7 03:36:37 choleste rol, total, serum 2016 017 [facility] [address] [place], [address], 7 16:02:39 Referral dermatol ogist referral - please evaluate and treat for correct diagnosi s 2017 018 ARLEY Not available 9 11:22:01 Procedures None recorded . Surgeries None recorded . Imaging US, eye - soft tissue mass on outer corner of left eye, please evaluate if it is lipoma or epidermo id cyst 2016 017 [email or web address] Not available 8 17:16:29 Medication Orders dexameth asone 4 mg tablet 2018 019 [facility], [address] [place] [address], [id number], 9 11:33:55 triamcin olone acetonid e 0.1 % topical cream 2018 019 [facility], [address], [place], [id number], 9 11:33:53 triamcin olone acetonid e 0.1 % topical ointment 2018 019 [facility]FACE [facility], [address] [place] [address], [address], 9 09:56:25 Ventolin HFA 90 mcg/actu ation aerosol inhaler 2017 018 [facility]FACE [facility], [address] [place] [address], [id number], 8 16:15:44 Qvar RediHale r 80 mcg/actu ation HFA breath activate d aerosol 2017 018 [facility], [address] [place] [address], [address], 8 16:15:48 clindamy blair HCl 300 mg capsule 2017 018 [facility], [address] [place] [address], [address], 8 16:15:32 Qvar RediHale r 80 mcg/actu ation HFA breath activate d aerosol 2017 018 [facility], [address] [place] [address], [id number], 8 16:17:18 Ventolin HFA 90 mcg/actu ation aerosol inhaler 2017 018 [facility]780[facility], [address] [place] [address], [id number], 8 16:17:19 clindamy blair HCl 300 mg capsule 2017 018 [facility], [address] [place] [address], [id number], 8 15:47:14 predniso ne 20 mg tablet 2017 018 [facility] #26342, [address] [place] [address], [id number], 9 09:44:13 Ventolin HFA 90 mcg/actu ation aerosol inhaler 2016 017 [facility], [address] [place] [address], [id number], 7 12:18:45 Aerospan 80 mcg/actu ation HFA aerosol inhaler 2016 017 lalex [facility] #79732, [address], [place], [id number], 7 17:19:33 triamcin olone acetonid e 0.1 % topical cream 2016 017 INTERFACE [facility] #60068, [address], [place], [id number], 7 12:19:39 hydroxyz ine HCl 25 mg tablet 2016 017 INTERFACE [facility] #03950, [address], [place], [id number], 7 12:19:47 Patient TargetsNo targets recorded. Patient Instructions Encounter Date Encounter Id Patient Instructions Last Modified By Organization Details Last Modified Time 03/12/2017 [id number] Quitting Tobacco : Care Instructions lalex Not available 03/12/2017 14:27:41 01/14/2018 [id number] cellulitis: care instructions lalex Not available 01/14/2018 20:13:03 02/01/2018 [id number] - Printed dermatology referral and advised patient to call Ms. Ramirez's office to schedule his appt. Patient was also advised to picker and sorter load and unload antibiotics from [facility] to see if this would improve the cellulitis on the legs. lalex Not available 02/01/2018 22:56:19 04/21/2018 [id number] Discussed referral to [facility] for possible Dupixent initiation. Patient defers due to no insurance coverage. Will consider in the future when he has insurance Recommended applying only OTC CeraVe to face. Risks and side effects of medication reviewed. [email or web address] Not available 04/21/2018 09:49:14 2018 [id number] Receommended referral to [facility] for possible Dupixent initiation. Discussed discounted rates for being seen as self pay patient at Dermatology. Also discussed option of patient assistance program with Dupixent therapy. Risks and side effects of medication reviewed. [email or web address] Not available 2018 11:33:47 Reason for Referral Registered Nurse Cardiovascular Icu Referral for E czema please evaluate and treat for correct diagnosis Referring Physician: Chelita Bedoya, [facility] Medicine, Encounter Date: 01/14/2018 Results Created Date Observation Date Name Description Value Unit Range Abnormal Flag Note LastModifiedBy Organization Detail LastModifiedTime 03/12/20 17 03/12/2017 urina lysis , dipst ick, refle x micro urhead1 URINAL YSIS, COMPLE TE Ur inalys is Gross Exam Not Available [facility] [address] [place], [address], 03/12/2017 15:24:07 03/12/20 17 03/12/2017 urina lysis , dipst ick, refle x micro specific gravity 1.025 1.001- 1.035 Not Available [facility] [address] [place], [address], 03/12/2017 15:24:07 03/12/20 17 03/12/2017 urina lysis , dipst ick, refle x micro pH 6.5 5.0-7. 0 Not Available [facility] [address] [place], [address], 03/12/2017 15:24:07 03/12/20 17 03/12/2017 urina lysis , dipst ick, refle x micro urine-color YELLOW yellow Not Available [facility] ([facility]) [address] [place], [address], 03/12/2017 15:24:07 03/12/20 17 03/12/2017 urina lysis , dipst ick, refle x micro appearance CLEAR clear Not Available [facility]) [address] [place], [address], 03/12/2017 15:24:07 03/12/20 17 03/12/2017 urina lysis , dipst ick, refle x micro WBC esterase NEGATI VE uL negati ve Not Available [facility] (Lab) [address] [place], [address], 03/12/2017 15:24:07 03/12/20 17 03/12/2017 urina lysis , dipst ick, refle x micro protein NEGATI VE mg/dL negati ve Not Available [facility] (Lab) [address], [place], [address], 03/12/2017 15:24:07 03/12/20 17 03/12/2017 urina lysis , dipst ick, refle x micro glucose NEGATI VE mg/dL negati ve Not Available [facility] (Lab) [address], [place], [address], 03/12/2017 15:24:07 03/12/20 17 03/12/2017 urina lysis , dipst ick, refle x micro ketones NEGATI VE mg/dL negati ve Not Available [facility] (Lab) [address] [place], [address], 03/12/2017 15:24:07 03/12/20 17 03/12/2017 urina lysis , dipst ick, refle x micro occult blood NEGATI VE marylin/u L negati ve Not Available [facility] (Lab) [address], [place], [address], 03/12/2017 15:24:07 03/12/20 17 03/12/2017 urina lysis , dipst ick, refle x micro bilirubin NEGATI VE negati ve Not Available [facility] (Lab) [address], [place], [address], 03/12/2017 15:24:07 03/12/20 17 03/12/2017 urina lysis , dipst ick, refle x micro urobilinogen 0.2 Not Available [facility] (Lab) [address] [place], [address], 03/12/2017 15:24:07 03/12/20 17 03/12/2017 urina lysis , dipst ick, refle x micro nitrite, urine NEGATI VE negati ve Not Available [facility] (Lab) [address], [place], [address], 03/12/2017 15:24:07 03/12/20 17 03/12/2017 TSH, serum or plasm a TSH 2.51 uIU/m L 0.50-4 .50 Not Available [facility] (Lab) [address] [place], [address], 03/12/2017 15:37:25 03/12/20 17 03/12/2017 charanjit stero l, total , serum cholestrol 152.0 mg/dL 140.0- 200.0 Not Available [facility] (Lab) [address], [place], [address], 03/12/2017 16:02:39 03/12/20 17 03/12/2017 CMP, serum or plasm a glucose, serum 132 mg/dL 65-[address] [facility] [address], [place], [address], 03/12/2017 16:02:43 03/12/20 17 03/12/2017 CMP, serum or plasm a BUN 10 mg/dL 8-26 Not Available [facility] (Lab) [address], [place], [address], 03/12/2017 16:02:43 03/12/20 17 03/12/2017 CMP, serum or plasm a creatinine, serum 0.60 mg/dL 0.50-1 .40 Not Available [facility] (Lab) [address] [place], [address], 03/12/2017 16:02:43 03/12/20 17 03/12/2017 CMP, serum or plasm a BUN/creatnin e ratio 16.[address] [facility] ([facility]) [address] [place], [address], 03/12/2017 16:02:43 03/12/20 17 03/12/2017 CMP, serum or plasm a sodium, serum 141.0 mEq/L 136.0- 144.0 Not Available [facility] (Lab) [address] [place], [address], 03/12/2017 16:02:43 03/12/20 17 03/12/2017 CMP, serum or plasm a potassium, serum 3.8 mmol/ L 3.5-5. 3 Not Available [facility] (Lab) [address] [place], [address], 03/12/2017 16:02:43 03/12/20 17 03/12/2017 CMP, serum or plasm a chloride, serum 103 mmol/ l 101-11 1 Not Available [facility] (Lab) [address], [place], [address], 03/12/2017 16:02:43 03/12/20 17 03/12/2017 CMP, serum or plasm a carbon dioxide total 28.2 mmol/ L 21.0-3 2.0 Not Available [facility] (Lab) [address], [place], [address], 03/12/2017 16:02:43 03/12/20 17 03/12/2017 CMP, serum or plasm a aniongp 14.0 mmol/ L Not Available [facility] (Lab) [address], [place], [address], 03/12/2017 16:02:43 03/12/20 17 03/12/2017 CMP, serum or plasm a calcium, serum 11.3 mg/dL 8.2-10 .0 high Not Available [facility] (Lab) [address] [place], [address], 03/12/2017 16:02:43 03/12/20 17 03/12/2017 CMP, serum or plasm a total protein 7.1 g/dL 6.7-8. 2 Not Available [facility] (Lab) [address], [place], [address], 03/12/2017 16:02:43 03/12/20 17 03/12/2017 CMP, serum or plasm a albumin, serum 4.7 g/dL 3.5-5. 5 Not Available [facility] (Lab) [address] [place], [address], 03/12/2017 16:02:43 03/12/20 17 03/12/2017 CMP, serum or plasm a agratio 2.0 Not Available [facility] (Lab) [address] [place], [address], 03/12/2017 16:02:43 03/12/20 17 03/12/2017 CMP, serum or plasm a bilt 1.1 mg/dL 0.2-1. 0 high Not Available [facility] (Lab) [address], [place], [address], 03/12/2017 16:02:43 03/12/20 17 03/12/2017 CMP, serum or plasm a AST 29.0 U/L 10.0-4 2.0 Not Available [facility] (Lab) [address], [place], [address], 03/12/2017 16:02:43 03/12/20 17 03/12/2017 CMP, serum or plasm a ALT 43.0 U/L 10.0-6 0.0 Not Available [facility] (Lab) [address], [place], [address], 03/12/2017 16:02:43 03/12/20 17 03/12/2017 CMP, serum or plasm a alk phos 112.0 IU/L 42.0-1 21.0 Not Available [facility] (Lab) [address] [place], [address], 03/12/2017 16:02:43 03/12/20 17 03/12/2017 CMP, serum or plasm a osmol 282.0 mOsm/ L 275.0- 301.0 Not Available [facility] (Lab) [address] [place], [address], 03/12/2017 16:02:43 03/12/20 17 03/12/2017 CMP, serum or plasm a eGFR, AM 200 m/lmi n/1.7 3_m >=60 Not Available [facility] (Lab) [address], [place], [address], 03/12/2017 16:02:43 03/12/20 17 03/12/2017 CMP, serum or plasm a eGFR, non- AM 165 mL/mi n/1.7 3/m >=60 Not Available [facility] (Lab) [address], [place], [address], 03/12/2017 16:02:43 03/12/20 17 03/12/2017 CBC w/ auto diff WBC 8.5 K/uL 3.4-10 .8 Not Available [facility] (Lab) [address], [place], [address], 03/12/2017 16:04:35 03/12/20 17 03/12/2017 CBC w/ auto diff red blood count 5.2 M/uL 4.5-6. 3 Not Available [facility] (Lab) [address], [place], [address], 03/12/2017 16:04:35 03/12/20 17 03/12/2017 CBC w/ auto diff hemoglobin 15.8 g/dL 13.5-1 7.5 Not Available [facility] (Lab) [address], [place], [address], 03/12/2017 16:04:35 03/12/20 17 03/12/2017 CBC w/ auto diff hematocrit 48.1 % 40.0-5 2.0 Not Available [facility] (Lab) [address], [place], [address], 03/12/2017 16:04:35 03/12/20 17 03/12/2017 CBC w/ auto diff MCV 93 fL 80-95 Not Available [facility] (Lab) [address], [place], [address], 03/12/2017 16:04:35 03/12/20 17 03/12/2017 CBC w/ auto diff MCH 31 pg 27-32 Not Available [facility] (Lab) [address] [place], [address], 03/12/2017 16:04:35 03/12/20 17 03/12/2017 CBC w/ auto diff MCHC 33 g/dL 32-36 Not Available [facility] (Lab) [address] [place], [address], 03/12/2017 16:04:35 03/12/20 17 03/12/2017 CBC w/ auto diff platelets 220 K/uL 155-37 9 Not Available [facility] (Lab) [address] [place], [address], 03/12/2017 16:04:35 03/12/20 17 03/12/2017 CBC w/ auto diff RDW 13.8 % 11.5-1 4.5 Not Available [facility] (Lab) [address] [place], [address], 03/12/2017 16:04:35 03/12/20 17 03/12/2017 CBC w/ auto diff MPV 12.0 fL 8.9-12 .7 Not Available [facility] (Lab) [address] [facility] [address], [place], [address], 03/12/2017 16:04:35 03/12/20 17 03/12/2017 CBC w/ auto diff neutrophils absolute 5.1 K/uL 1.4-7. 0 Not Available [facility] (Lab) [address] [place], [address], 03/12/2017 16:04:35 03/12/20 17 03/12/2017 CBC w/ auto diff lymphs (absolute) 1.9 K/uL 0.7-3. 1 Not Available [facility] (Lab) [address] [place], [address], 03/12/2017 16:04:35 03/12/20 17 03/12/2017 CBC w/ auto diff monocytes (absolute) 0.9 K/uL 0.1-0. 9 Not Available [facility] (Lab) [address] [place], [address], 03/12/2017 16:04:35 03/12/20 17 03/12/2017 CBC w/ auto diff eos (absolute) 0.5 K/uL 0.0-0. 4 high Not Available [facility] (Lab) [address] [facility] [address], [place], [address], 03/12/2017 16:04:35 03/12/20 17 03/12/2017 CBC w/ auto diff baso (absolute) 0.0 K/uL 0.1-0. 3 low Not Available [facility] (Lab) [address] [facility] [address], [place], [address], 03/12/2017 16:04:35 03/12/20 17 03/12/2017 CBC w/ auto diff neut % 60.1 % 40.0-7 4.0 Not Available [facility] (Lab) [address] [facility] [address], [place], [address], 03/12/2017 16:04:35 03/12/20 17 03/12/2017 CBC w/ auto diff lymphs % 22.7 % 14.0-4 6.0 Not Available [facility] (Lab) [address] [facility] [address] [facility], [place], [address], 03/12/2017 16:04:35 03/12/20 17 03/12/2017 CBC w/ auto diff mono % 10.7 % 4.0-12 .0 Not Available [facility] (Lab) [address] [facility] [address], [place], [address], 03/12/2017 16:04:35 03/12/20 17 03/12/2017 CBC w/ auto diff eos % 6 % <=5 high Not Available [facility] (Lab) [address] [facility] [address], [place], [address], 03/12/2017 16:04:35 03/12/20 17 03/12/2017 CBC w/ auto diff baso % 0.5 % 0.1-1. 1 Not Available [facility] [address], [place], [address], 03/12/2017 16:04:35 03/12/20 17 03/13/2017 HbA1c (hemo globi n A1c), blood hemoglobin A1C 5.5 % 4.8-5. 6 . Pre-d iabet es: 5.7 - 6.4 Diabe juany: >6.4 Glyce ti contr ol for adult s with diabe juany: <7.0 Not Available [facility] ([facility]) [address], [place], [address], 03/13/2017 02:07:39 03/12/20 17 03/13/2017 T4, free, serum T4,free(dire ct) 1.23 NG/dL 0.82-1 .77 Not Available [facility] [address], [place], [address], 03/13/2017 03:36:37 Result Notes None recorded. Problems Name Problem SNOMED Code Status Onset Date Resolution Date Notes Provider Name and Address Organization Details Recorded Time Asthma 390224463 Active Yuliet Austin MD Attn: Flaquita walker,[address] [place], [address], [facility] 6 17:35:39 Tobacco dependence syndrome 87105408 Active Yuliet Austin MD Attn: Accountmillicent g,[address] [place], [address], [facility] 6 17:35:39 Tobacco user 998750277 Active Yuliet Austin MD Attn: Accountmill[employer]ent g,[address] [place], [address], [facility] 4 11:49:07 Injury of foot 603283808 Active Yuliet Austin MD Attn: Flaquita g,[address] [place], [address], [facility] 6 17:35:39 Problem Notes None recorded. Procedures Surgical History Date Name Laterality Status Provider Name and Address Organization Details Recorded Time 04/21/19 19 Intralesional Kenalog injection completed Gianna Ramirez [facility] 04/21/2018 09:53:33 Unlisted procedure shoulder completed Frannie Lainez [facility] 03/12/2017 11:17:39 Imaging Results None recorded. Procedure Notes None recorded. Medical Equipment None Reported. Allergies No known drug allergies Medications Name Sig Start Date Stop Date Status Note LastModified by Organization Details LastModified Time Prescriptio n - Prior Authorizati on Request active Not Available Not Available N ot Available cyclobenzap rine 10 mg tablet 03/12 completed Not Available Not Available Not Available amoxicillin 500 mg capsule 01/14 completed Not Available Not Available Not Available prednisone 10 mg tablet Take 1 tablet every day by oral route as directed for 5 days. 04/21 completed Not Available Not Available Not Available clindamycin HCl 300 mg capsule Take 1 capsule every 8 hours by oral route as directed for 10 days. 2017 active Not Available Not Available Not Avai lable azithromyci n 250 mg tablet Take 1 tablet every day by oral route as directed for 3 days. 2017 active Not Available Not Available Not Avai lable ibuprofen 800 mg tablet active Not Available Not Available Not Available hydrocodone 5 mg-acetamin ophen 325 mg tablet 03/12 completed Not Available Not Available Not Available prednisone 20 mg tablet Take 3 tablet (60mg) by mouth daily for five days then 2 tablets (40mg) for five days, then 1 tablet for five days 04/21 completed Not Available Not Available Not Available Advair Diskus 100 mcg-50 mcg/dose powder for inhalation TAKE 1 PUFF BY MOUTH EVERY 12 HOURS DIRECTED 03/16 completed Not Available Not Available Not Available acetaminoph en 300 mg-codeine 30 mg tablet 01/14 completed Not Available Not Available Not Available triamcinolo ne acetonide 0.1 % topical cream apply to affected areas on body (excludin g face) BID x 2 weeks, stop x 2 weeks and repeat. 2018 active Not Available Not Available Not Avai lable cephalexin 500 mg capsule 03/12 completed Not Available Not Available Not Available oseltamivir 75 mg capsule 01/14 completed Not Available Not Available Not Available triamcinolo ne acetonide 0.1 % topical ointment apply a thin layer to affected areas (excludin g face) BID x 2 weeks, stop x 2 weeks. Repeat as needed 2 weeks on/2 weeks off 2018 active Not Available Not Available Not Avai lable dexamethaso ne 4 mg tablet take 1 tablet on Saturdays and Sundays x 8 weeks. active Not Available Not Available No t Available montelukast 10 mg tablet Take 1 tablet every day by oral route at bedtime. 2017 active Not Available Not Available Not Avai lable hydroxyzine HCl 25 mg tablet Take 1 tablet 3 times a day by oral route as needed. 2017 active Not Available Not Available Not Avai lable methylpredn isolone 4 mg tablets in a dose pack 01/14 completed Not Available Not Available Not Available naproxen 500 mg tablet 03/12 completed Not Available Not Available Not Available amoxicillin 875 mg-potassiu m clavulanate 125 mg tablet 03/12 completed Not Available Not Available Not Available ProAir HFA 90 mcg/actuati on aerosol inhaler INHALE 2 PUFFS EVERY 4 HOURS 2018 active Not Available Not Available Not Avai lable Aerospan 80 mcg/actuati on HFA aerosol inhaler Inhale 2 puffs twice a day by inhalatio n route as directed. 2016 active Not Available Not Available Not Avai lable Virtussin AC 10 mg-100 mg/5 mL oral liquid 03/12 completed Not Available Not Available Not Available Asmanex HFA 100 mcg/actuati on aerosol inhaler 06/22 completed Not Available Not Available Not Available Qvar RediHaler 80 mcg/actuati on HFA breath activated aerosol Inhale two puffs by inhalatio n route twice daily as directed 2017 active Not Available Not Available Not Avai lable Vitals Date Recorded Body height Body mass index (BMI) Body weight Oxygen saturation Oxygen saturation in Arterial blood by Pulse oximetry Heart rate Body temperature Systolic blood pressure Diastolic blood pressure Provider Name and Address Organization Details Last Updated DateTime 7 190.5 cm 27.2 kg/m2 87898.3 4 g 98 % 98 % 61 /min 97.5 [degF] 140 mm[Hg] 70 mm[Hg] Page Lainez [facility] 7 11:23:17 Date Recorded Body height Body mass index (BMI) Body weight Oxygen saturation Oxygen saturation in Arterial blood by Pulse oximetry Heart rate Respiratory rate Body temperature Systolic blood pressure Diastolic blood pressure Provider Name and Address Organization Details Last Updated DateTime 8 190.5 cm 28.1 kg/m2 948434. 49 g 99 % 99 % 78 /min 17 /min 98 [degF] 116 mm[Hg] 82 mm[Hg] Rebeca CastanoDarrick [facility] 8 15:28:45 Date Recorded Body height Body mass index (BMI) Body weight Oxygen saturation Oxygen saturation in Arterial blood by Pulse oximetry Heart rate Respiratory rate Body temperature Systolic blood pressure Diastolic blood pressure Provider Name and Address Organization Details Last Updated DateTime 8 190.5 cm 27.4 kg/m2 79674.5 3 g 98 % 98 % 59 /min 14 /min 97.9 [degF] 126 mm[Hg] 86 mm[Hg] Rebeca CastanoYonyAndrew [facility] 8 15:46:42 Social History Question Answer Notes LastModified by Organizat ion Details LastModified Time Tobacco Smoking Status Current Every Day Smoker [place] 02/15/2014 11:09:20 What Is Your Level Of Alcohol Consumption? Occasional Information not available 02/15/2014 What Is Your Level Of Caffeine Consumption? Moderate Information not available 02/15/2014 What Was The Date Of Your Most Recent Tobacco Screening? 2018 Information not available 10/21/2018 How Much Tobacco Do You Smoke? 0.5 PPD Information not available 02/15/2014 How Many Years Have You Smoked Tobacco? 2 Information not available 02/15/2014 Sex: Unknown Functional Status None recorded. Mental Status None recorded. Family History Nothing Reported. Medical History Condition Response Skin Problems Y Asthma Y Allergies Y Past Encounters Encounter ID Performer Location Encounter Start Date Encounter Closed Date Diagnosis/Indication Diagnosis SNOMED-CT Code Diagnosis ICD10 Code Diagnosis Note [id number] STEPHANIE Hyman (Adult Med) [address] [place] [address] 02/15/2014 10:49:50 02/15/2014 11:49:25 Adult health examination [id number] Asthma 321501251 Tobacco de pendence syndrome 66183608 Tobacco user [id number] MD Chris Townsend (Adult Med) [address] [place] [address] 04/10/2015 16:08:44 04/10/2015 18:05:01 Injury of foot 255371946 S99.922A While he was at work ~01/2015, 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 He was in the ER in [place] where the x-rays were negative and then again at because of bruising and pain, the X-ray report from the 02/19/2015 ER visit to was negative. He still has some discomfort especially after work and he has requested a referral to a foot and ankle doctor, I have no objection. Tobacco de pendence syndrome 82894129 F17.290 Cessation was discussed Adult [facility] th examination [id number] Z00.00 labs have been reoordered Asthma [id number] J45.90 9 [id number] RICARDO Carvajal W [facility] (Family [facility]) [address] [place] [id number] 03/12/2017 11:06:31 03/17/2017 13:03:27 Adult health examination [id number] Z00.00 Asthma [id number] J45.90 9 Eczema 41340349 L30.9 Mass of soft tissue 4449 56885 R22.9 Tobacco de pendence syndrome 14354900 F17.528 [id number] RICARDO Carvajal [facility] (Family [facility]) [address] [place] [id number] 01/14/2018 15:12:07 01/15/2018 15:30:15 Cellulitis of lower limb 301110896 L03.119 Eczema 88899244 L30.9 Asthma 177974598 J45.90 9 [id number] JACKLYN CarvajalC W [place] ([facility]) [address] [facility] [place] [address] 02/01/2018 15:08:13 02/10/2018 09:25:51 Cellulitis of lower limb 434026034 L03.119 Asthma 726041917 J45.90 9 [id number] Gianna Rogers e FP ([facility]) [address] [place] [address] 04/21/2018 09:15:39 04/22/2018 08:15:27 Atopic dermatitis 36687097 L20.9 [id number] Gianna Rogers e FP (ALEX [facility]) [address] [place] [address] 2018 10:15:22 08/05/2018 09:08:01 Generalized vitiligo 066519639 L80 Atopic dermatitis 768690 01 L20.9 Health Concerns Section Related Observation LastModified by Organization Detai ls LastModified Time None Recorded Concern Status LastModified by Organization Details LastModified Time None Recorded Advance Directives Directive None Recorded Payers Encounter Date Sequence Insurance Name Policy Number Policy Mercedes Covered Member ID Mercedes Member ID Guarantor Name 03/12/2017 1 [facility] - DOS PRIOR TO 2020 (MEDICAID REPLACEMENT - HMO) Edward Ball [id number] Edward Ball 01/14/2018 1 [place] Edward Ball [id number] Edward Ball 02/01/2018 1 *SELF PAY* Rodney Ball 04/21/2018 1 *SELF PAY* Rodney Ball 2018 1 *SELF PAY* Rodney Ball Notes Date Note Type Note Provider Name and Address Organization Details Recorded Time 03/12/2017 text/html Comes today to establish care with provider. Patient states has asthma in which he has been using the ventolin more often and does not see an improvement in his breathing after using the ventolin. Patient denies asthma interfering with his daily activities. Patient states will have occasional nights where he wakes up due to wheezing and feeling short of breath. Denies chest pain or heart palpitations. Patient states has a soft tissue lump on the corner of his left eye for the last couple of months. Patient states his girlfriend thinks the lump has grown in size. Denies tenderness, redness or erythema. Patient requesting lump to be removed. Patient also complains of dry, itchy rash on his abdomen and back. Patient states he was told it was eczema. Patient states the rash is worse during the winter months. Denies rash on the arms, legs. Denies scabies or bed bugs. Patient denies girlfriend with similar symptoms. Patient stated had tried OTC hydrocortisone with little to no relief. Patient states does scratch the rash due to it being itchy. Patient denies change in body soap, laundry detergent. RICARDO Carvajal Attn: Accounting,[address] [place], [address], [facility] 03/12/2017 14:28:48 01/14/2018 text/html Rash/Skin LesionReported bypatient.Location:l egs (worse on the right leg than left); slightly on the posterior elbows Quality:itchy;red;sp reading;foul smelling; small amount of yellow pus drainage Severity:worsening Duration:has noted for 1-2 months Onset/Timing:gradual onset Context:no new detergents or skin products; no one else with similar rash;scratching; unsure of what started the rash. patient stated it started on the ankle then spread up towards the legs then into the arm and back. patient had gone to [facility] two weeks ago and was prescribed antibiotics and oral steroid. Alleviating Factors:patient stated taking the oral steroid had slowly improved the rash and decreased the size but stated the rash flared up after completing it Aggravating Factors:nothing makes it worse Associated Symptoms:no fever; no cold symptoms; no nausea; no vomiting; no diarrhea; no urinary symptoms;chills Treatment History:oral antibiotic bactrim DS with (little improvement); prescription systemic treatment predisone with improvement RICARDO Carvajal Attn: Accounting,[address] [place], [address], [facility] 01/14/2018 20:13:23 02/01/2018 text/html Comes today for follow up on cellulitis and rash on lower legs, worse on the right leg than left. patient stated due to lack of insurance did not picker and sorter load and unload the antibiotics but only the prednisone. Patient stated the rash had started to improve but after he had completed the steroids, the rash came back. Patient denies fevers or chills. Patient states has noticed scant amount of yellow discharge, redness. Patient states has been cleaning bilateral legs daily and applying OTC antibiotic ointment and wrapped with gauze pads. 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 RICARDO Carvajal Attn: Accounting,[address] [place], [address], [facility] 02/01/2018 22:56:35 04/21/2018 text/html Patient referred here today for a blotchy rash that started on his arms and legs 2-3 months ago that is spreading to the rest of his body. His rash is itches, drake and is scaly. He completed a course of Prednisone, antibiotics and applied Triamcinolone which helped but the itching still wakes him up at night. He applies Vaseline or Neosporin to his face. Gianna campos [facility] 04/21/2018 09:56:58
[2024-06-07 18:29] LABS: Alanine Aminotransferase 24 U/L (6-50); Albumin Level 4.3 g/dL (3.5-5.1); Alkaline Phosphatase 150 U/L (38-126); Anion Gap 9 mmol/L (4-12); Aspartate Amino Transferase 27 U/L (17-59); Bilirubin,Total 1.7 mg/dL (0.2-1.3); Blood Urea Nitrogen 8 mg/dL (9-20); Calcium 11.1 mg/dL (8.4-10.2); Carbon Dioxide 25 mmol/L (22-30); Chloride 106 mmol/L (98-107); Estimated CRCL calculation 159 ml/min; Estimated Glomerular Filt Rate > 60; Glucose 122 mg/dL (65-110); Lipase 14 U/L (23-300); Sodium 140 mmol/L (137-145)
[2024-06-07 18:32] LABS: Add Urine Microscopic? NO; Appearance Urine Clear (Clear); Bilirubin Urine Negative (Negative); Blood Urine Negative (Negative); Color Urine Yellow (Yellow); Glucose Urine UA Negative (Negative); Ketones Urine Negative (Negative); Leukocyte Esterase Ur Negative LEU/UL (Negative); Nitrate Urine Negative (Negative); Protein Urine Negative (Negative); Specific Grav Ur 1.021 (1.001-1.035); Urobilinogen Urine 0.2 mg/dL (<2.0); pH Urine 5.5 (5.0-9.0)
--- OUTSIDE RECORDS SUMMARY | 2024-06-07 21:27 | XMS_ITS | Clinical Summary ---
Author Organization [facility] Address [facility] [place] [address] Care Team Providers Care Drapery Worker Name Role Phone Abad Herrera MD Primary Care Provider [phone] Allergies No known active allergies Medications albuterol [...] patient's age to complete this topic Insurance [facility] Care Teams Drapery Worker Relationship Specialty Start Date End Date Abad Herrera MD [address] [place] [address] PCP - General HOSPITALIST 04/09/23
--- OUTSIDE RECORDS SUMMARY | 2024-06-07 21:27 | XMS_ITS | Referral Summary ---
Author Organization [facility] Address [address] [facility] [place] [address] Care Team Providers Care Crm Campaign Manager Name Role Phone Unavailable Primary Care Provider Unavailabl e Source Comments [facility],non-owned Affiliates and Associated Physician Practices is amultiple site organization consisting of ambulatory clinics and hospital sitesin [place], [place], [place] and [place]. This disclosure is being madepursuant to the Care Everywhere program and may not contain all information available regarding this patient. Last updated 17.[facility] [employer] Allergies No known active allergies Medications * [...] Comments Blood Pressure 120/74 05/06/2021 5:45 PM DIAMOND DRILLER Pulse 85 05/06/2021 5:45 PM DIAMOND DRILLER Temperature 36.6 C (97.9 F) 05/06/2021 5:12 PM DIAMOND DRILLER Respiratory Rate 13 05/06/2021 5:45 PM DIAMOND DRILLER Oxygen Saturation 99% 05/06/2021 5:45 PM DIAMOND DRILLER Inhaled Oxygen Concentration 21% 05/06/2021 5 :05 PM DIAMOND DRILLER Weight 83 kg (183 lb) 12/10/2021 10:23 [...]
--- OUTSIDE RECORDS SUMMARY | 2024-06-07 21:27 | XMS_ITS | Clinical Summary ---
Author Organization [facility] Address [address] [place] [address] Care Team Providers Care Adjunct Mathematics Instructor Name Role Phone Unavailable Primary Care Provider Unavailabl e Source Comments [facility],non-owned Affiliates and Associated Physician Practices is amultiple site organization consisting of ambulatory clinics and hospital sitesin [place], [place], [place] and [place]. This disclosure is being madepursuant to the Care Everywhere program and may not contain all information available regarding this patient. Last updated 17.[facility] [employer] Allergies No known active allergies Medications * [...] Comments Blood Pressure 120/74 05/06/2021 5:45 PM LUGGAGE MAKER Pulse 85 05/06/2021 5:45 PM LUGGAGE MAKER Temperature 36.6 C (97.9 F) 05/06/2021 5:12 PM LUGGAGE MAKER Respiratory Rate 13 05/06/2021 5:45 PM LUGGAGE MAKER Oxygen Saturation 99% 05/06/2021 5:45 PM LUGGAGE MAKER Inhaled Oxygen Concentration 21% 05/06/2021 5 :05 PM LUGGAGE MAKER Weight 83 kg (183 lb) 12/10/2021 10:23 [...]
--- OUTSIDE RECORDS SUMMARY | 2024-06-07 21:27 | XMS_ITS | Continuity of Care Document ---
Author Organization [facility] Address [address] [place] [address] Phone Care Team Providers Care Commission Clerk Name Role Phone Yue PT, DPT, Ismael Unavailable Unavailable Procedures Procedure Date Therapeutic Activities Progress Note Therapeutic Exercise Therapeutic Activities Therapeutic Exercise Therapeutic Activities Therapeutic Exercise Therapeutic Activities Therapeutic Exercise Therapeutic Activities Therapeutic Exercise Therapeutic Activities Therapeutic Exercise Therapeutic Activities Therapeutic Exercise Therapeutic Exercise Therapeutic Activities Therapeutic Exercise Therapeutic Activities Therapeutic Activities Therapeutic Exercise Therapeutic Activities Neuromuscular Re-Ed PT Evaluation Moderate Complexity Therapeutic Activities Advance Directives Directive Yes / No Effective Date File Name No Information Encounters Encounter Description Practice Location Reason(s) For Visit Diagnoses Date Provider Providers Copied on Encounter [facility], [address], [place], [place], [id number], tel:[phone] [facility] No Information Yue Guevara. . Referring Provider: Ashleigh Stallworth, [address] [place], [address]. tel:[phone] [facility], [address], [place], [place], [id number], [place] tel:[phone] [facility] No Information Makler Luke. . Referring Provider: Ashleigh Stallworth, [address] [place] [address], [address]. tel:[phone] [place] [address], [address], [place], [place], [id number], [place] tel:[phone] [facility] No Information Makler Luke. . Referring Provider: Ashleigh Stallworth, [address] [place] [address], [address]. tel:[phone] [place] [address], [address], [place], [place], [id number], [place] tel:[phone] [facility] No Information Makler Luke. . Referring Provider: Ashleigh Stallworth, [address] [place] [address], [address]. tel:[phone] [place] [address], [address], [place], [place], [id number], [place] tel:[phone] [facility] No Information Makler Luke. . Referring Provider: Ashleigh Stallworth, [address] [place] [address], [address]. tel:[phone] [place] [id number] [address], [place], [place], [id number], [place] tel:[phone] [facility] No Information Makler Luke. . Referring Provider: Ashleigh Stallworth [address] [place] [address], [address]. tel:[phone] [place] [id number] [address], [place], [place], [id number], [place] tel:[phone] [facility] No Information Makler Luke. . Referring Provider: Ashleigh Stallworth [address] [place] [address], [address]. tel:[phone] [facility] [address] [facility] [address], [place], [place], [id number], tel:[phone] [facility] No Information Makler Luke. . Referring Provider: Ashleigh Stallworth, [address] [place] [address], [address]. tel:[phone] [facility] [address] [facility] [address], [place], [place], [id number], tel:[phone] [facility] No Information Makler Luke. . Referring Provider: Ashleigh Stallworth, [address] [place] [address], [address]. tel:[phone] [facility] [address] [place] [address], [place], [place], [id number], tel:[phone] [facility] No Information Makler Luke. . Referring Provider: Ashleigh Stallworth, [address] [place] [address], [address]. tel:[phone] [facility] [address] [address], [place], [place], [id number], tel:[phone] [facility] No Information Makler Luke. . Referring Provider: Ashleigh Stallworth [address] [place] [address], [address]. tel:[phone] [address], [place], [place], [id number], [place] tel:[phone] [facility] No Information Makler Luke. . Referring Provider: Ashleigh Stallworth, [address] [place] [address], [address]. tel:[phone] Family History Family Member Type Diagnosis Age At Onset No Information Payers Payer name Insurance type Covered alliance party ID Mateo schmidt(s) [facility] [id number] Social History Type Description Quantity Date Captured [...]
--- OUTSIDE RECORDS SUMMARY | 2024-06-07 21:27 | XMS_ITS | Patient Health Summary ---
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 03/29/2021 11:27 PM ANIMAL TECHNICIAN [facility] Citrated Kaolin LY30 (Lysis) 0.0 0.0 - 2.6 % 03/29/2021 11:27 PM ANIMAL TECHNICIAN [facility] Citrated RapidTEG MA (Max Amplitude) 65.8 52.0 - 70.0 mm 03/29/2021 11:27 PM ANIMAL TECHNICIAN [facility] Citrated Functional Fibrinogen MA (Max Amplitude) 21.3 15.0 - 32.0 mm 03/29/2021 11:27 PM ANIMAL TECHNICIAN [facility] Blood BLOOD SPECIMEN / Unknown Venipuncture / Unknown 03/29/2021 10:17 PM ANIMAL TECHNICIAN 03/29/2021 10:22 PM ANIMAL TECHNICIAN Abhi Pulido MD LAB - HEMATOLOG Y ORDERABLES [facility] [address] [place] [address], [place] [phone] * (ABNORMAL) TEG 6S PLATELET MAPPING (03/29/2021 10:17 PM ANIMAL TECHNICIAN) TEGPLM (Max Amplitude) Koalin 66 53 - 68 mm 03/29/2021 11:03 PM [facility] TEGPLM (Max Amplitude) ACTF 12 2 - 19 mm 03/29/2021 11:03 PM [facility] TEGPLM (Max Amplitude) ADP 12(L) 45 - 69 mm 03/29/2021 11:03 PM [facility] TEGPLM (Max Amplitude) AA 49(L) 51 - 71 mm 03/29/2021 11:03 PM [facility] TEGPLM %Inhibition ADP 99(H) 0 - 17 % 03/29/2021 11:03 PM [facility] TEGPLM %Inhibition AA 30(H) 0 - 11 % 03/29/2021 11:03 PM [facility] TEGPLM %Aggregation ADP 1(L) 83 - 100 % 03/29/2021 11:03 PM [facility] TEGPLM % Aggregation AA 70(L) 89 - 100 % 03/29/2021 11:03 PM [facility] Blood BLOOD SPECIMEN / Unknown Venipuncture / Unknown 03/29/2021 10:17 PM ANIMAL TECHNICIAN 03/29/2021 10:22 PM ANIMAL TECHNICIAN Abhi Pulido MD LAB - HEMATOLOG Y ORDERABLES [facility] [address] [place] [address], [place] [phone] * (ABNORMAL) URINE DRUG SCREEN IMMUNOASSAY (03/29/2021 10:08 PM ANIMAL TECHNICIAN) [facility] Amphetamines Screen Urine Negative Negative : < 1000 ng/mL 03/29/2021 11:22 PM [facility] Barbiturates Screen Urine Negative Negative : < 200 ng/mL 03/29/2021 11:22 PM [facility] Benzodiazepine Screen Urine Negative Negative : < 200 ng/mL 03/29/2021 11:22 PM [facility] Opiates Urine Positive(A) Negative : < 300 ng/mL 03/29/2021 11:22 PM [facility] Comment:Positive urine opiat e screening results should be confirmed by another generally accepted non-immunological method such as gas chromatography or mass spectrometry. Cocaine Metabolites Urine Negative Negative : < 300 ng/mL 03/29/2021 11:22 PM [facility] Phencyclidine Screen Urine Negative Negative : < 25 ng/ml 03/29/2021 11:22 PM [facility] Cannabinoids Screen Urine Negative Negative : <50 ng/mL 03/29/2021 11:22 PM [facility] Methadone Screen Urine Negative Negative : < 300 ng/mL 03/29/2021 11:22 PM [facility] Fentanyl Screen Urine Positive(A) Negative : <1.0 ng/mL 03/29/2021 11:22 PM [facility] Comment:Positive urine fenta nyl screening results should be confirmed by another generally accepted non-immunological method such as gas chromatography or mass spectrometry. Urine URINE / Unknown Collection / Unknown 03/29/2021 10:08 PM ANIMAL TECHNICIAN 03/29/2021 11:05 PM [facility] - 03/29/2021 11:[address] [facility] The Urine Toxicology Screening Panel does not screen for Propoxyphene, Meprobamate, Carisoprodol, Trazodone, krda-dvu-nshcxod medications and/or volatiles (Acetone, Isopropanol, Methanol or Ethylene Glycol). Ethanol, Salicylate, Acetaminophen, Tricyclic Antidepressants and several therapeutic drugs may be individually assayed in serum or plasma specimen. Toxicology testing by the [facility] is an aid to medical diagnosis and treatment of patients. No documented chain of custody was maintained. Results are intended to be used for clinical purposes only. Abhi Pulido MD LAB - URINE ZAHIDA CLIFFORD ORDERABLES [facility] [address] [place] [address], [facility] [phone] * 1 Units (03/29/2021 9:54 PM ANIMAL TECHNICIAN) Unit Description LR Whole BLood [facility] Unit ABO O [facility] Unit Rh POS [facility] Product Number E0033 [facility] B LOOD [facility] LAB Unit Donor # [id number] [facility] Unit Status transfused [facility] B[facility] OD [facility] Product Code [id number] [facility] Blood Type Barcode 5100 [facility] LAB Expiration Date S BLOOD BANK LAB Blood Bank BLOOD SPECIMEN / Unknown 03/29/2021 9:04 PM ANIMAL TECHNICIAN Abhi Pulido MD LAB - BLOOD BAN K ORDERABLES Performing Organization Address City/[facility]/ZIP Co de Phone Number [facility] [address] [place] [address], [facility] [phone] * CT CHEST ABDOMEN PELVIS W CONT (03/29/2021 9:27 PM ANIMAL TECHNICIAN) Anatomical Region Laterality Modality Chest, Abdomen, Pelvis Computed Tomography 03/29/2021 9:10 PM ANIMAL TECHNICIAN Addenda Addendum by Stevie Russell MD on 03/30/2021 1:17 PM ANIMAL TECHNICIAN ORIGINAL REPORT Procedure Information DATE: 03/29/2021 9:27 [...] 9:40 PM. I, Dr. STEVIE RUSSELL MD, [facility] have personally reviewed and interpreted this examination/study. This report was electronically signed by STEVIE RUSSELL MD, [facility] on 03/30/2021 1:07 PM . ADDENDUM #1 A small subcapsular hematoma of right kidney mentioned in the body of report. No associated renal parenchymal lesions seen, likely grade 1 renal injury. This report was electronically signed by STEVIE RUSSELL MD, [facility] on 03/30/2021 1:14 PM . Impressions 03/30/2021 1:07 PM ANIMAL TECHNICIAN Impression: 1.Mesenteric contusion/laceration in the right lower [...] 9:40 PM. I, Dr. STEVIE RUSSELL MD, [facility] have personally reviewed and interpreted this examination/study. This report was electronically signed by STEVIE RUSSELL MD, [facility] on 03/30/2021 1:07 PM . Narrative 03/30/2021 1:07 PM ANIMAL TECHNICIAN Procedure Information DATE: 03/29/2021 9:27 PM EXAMINATION: [...] 03/29/2021 9:[address] STEVIE Angel MD, [facility] have personally reviewedand interpreted this examination/study. This report was electronically signed by STEVIE RUSSELL MD, [facility] on 03/30/2021 1:07 PM . Abhi Pulido MD CT ORDERABLES * CT LUMBAR SPINE WO CONTRAST - T/L-spine trauma, Spine fracture (03/29/2021 9:27 PM ANIMAL TECHNICIAN) Anatomical Region Laterality Modality Spine Computed Tomogra phy 03/29/2021 10:0 8 PM ANIMAL TECHNICIAN Impressions 03/30/2021 2:30 PM ANIMAL TECHNICIAN IMPRESSION: 1. No acute intracranial process. 2. [...] The report drafted by Freddy Palacio D.O. (Contact [employer] Blocker [employer] C[employer]) Dr. GRAY Angel have personally reviewed and interpreted this examination/study. This report was electronically signed by GRAY MIRELES on 03/30/2021 2:30 PM . Narrative 03/30/2021 2:30 PM ANIMAL TECHNICIAN EXAMINATION: 1. CT OF THE HEAD WITHOUT [...] The report drafted by Freddy Palacio D.O. ([employer]ocker [employer]utter) IDr. GRAY have personally reviewed and interpreted this examination/study. This report was electronically signed by GRAY MIRELES on 03/30/2021 2:30PM . Abhi Pulido MD CT ORDERABLES * CT THORACIC SPINE WO CONTRAST - T/L-spine trauma, spine fracture (03/29/2021 9:27 PM ANIMAL TECHNICIAN) Anatomical Region Laterality Modality Spine Computed Tomogra phy 03/29/2021 10:0 8 PM ANIMAL TECHNICIAN Impressions 03/30/2021 2:30 PM ANIMAL TECHNICIAN IMPRESSION: 1. No acute intracranial process. 2. [...] The report drafted by Freddy Palacio D.O. (Contact [employer]ocker [employer]) I, Dr. GRAY MIRELES have personally reviewed and interpreted this examination/study. This report was electronically signed by GRAY MIRELES on 03/30/2021 2:30 PM . Narrative 03/30/2021 2:30 PM ANIMAL TECHNICIAN EXAMINATION: 1. CT OF THE HEAD WITHOUT [...] The report drafted by Freddy Palacio D.O. (Contact [employer]) IDr. GRAY have personally reviewed and interpreted this examination/study. This report was electronically signed by GRAY MIRELES on 03/30/2021 2:30PM . Abhi Pulido MD CT ORDERABLES * CT CERVICAL SPINE WO CONTRAST - C-Spine Trauma, Spine fracture (03/29/2021 9:27 PM ANIMAL TECHNICIAN) Anatomical Region Laterality Modality Spine Computed Tomogra phy 03/29/2021 10:0 8 PM ANIMAL TECHNICIAN Impressions 03/30/2021 2:30 PM ANIMAL TECHNICIAN IMPRESSION: 1. No acute intracranial process. 2. [...] The report drafted by Freddy Palacio D.O. ([employer]) Dr. RGAY Angel have personally reviewed and interpreted this examination/study. This report was electronically signed by GRAY MIRELES on 03/30/2021 2:30 PM . Narrative 03/30/2021 2:30 PM ANIMAL TECHNICIAN EXAMINATION: 1. CT OF THE HEAD WITHOUT [...] effect or midline shift is seen. The agmez-white matter differentiation is normal. No visible white [...] The report drafted by Freddy Palacio D.O. ([employer]) Dr. GRAY Angel have personally reviewed and interpreted this examination/study. This report was electronically signed by GRAY MIRELES on 03/30/2021 2:30PM . Abhi Pulido MD CT ORDERABLES * CT FACIAL BONES WO CONTRAST - Facial trauma, fx suspected, blunt (03/29/2021 9:27 PM ANIMAL TECHNICIAN) Anatomical Region Laterality Modality Head Computed Tomogra phy 03/29/2021 10:0 8 PM ANIMAL TECHNICIAN Impressions 03/30/2021 2:30 PM ANIMAL TECHNICIAN IMPRESSION: 1. No acute intracranial process. 2. [...] The report drafted by Freddy Palacio D.O. ([employer]) Dr. GRAY Angel have personally reviewed and interpreted this examination/study. This report was electronically signed by GRAY MIRELES on 03/30/2021 2:30 PM . Narrative 03/30/2021 2:30 PM ANIMAL TECHNICIAN EXAMINATION: 1. CT OF THE HEAD WITHOUT [...] The report drafted by Freddy Palacio D.O. ([employer]) IDr. GRAY have personally reviewed and interpreted this examination/study. This report was electronically signed by GRAY MIRELES on 03/30/2021 2:30PM . Abhi Pulido MD CT ORDERABLES * CT HEAD WO CONTRAST - Head Trauma, CSF leak, mental status changes (03/29/2021 9:27 PM ANIMAL TECHNICIAN) Anatomical Region Laterality Modality Head Computed Tomogra phy 03/29/2021 10:0 8 PM ANIMAL TECHNICIAN Impressions 03/30/2021 2:30 PM ANIMAL TECHNICIAN IMPRESSION: 1. No acute intracranial process. 2. [...] The report drafted by Freddy Palacio D.O. ([employer]) I, Dr. GRAY MIRELES have personally reviewed and interpreted this examination/study. This report was electronically signed by GRAY MIRELES on 03/30/2021 2:30 PM . Narrative 03/30/2021 2:30 PM ANIMAL TECHNICIAN EXAMINATION: 1. CT OF THE HEAD WITHOUT [...] The report drafted by Freddy Palacio D.O. ([employer]) I, Dr. GRAY MIRELES have personally reviewed and interpreted this examination/study. This report was electronically signed by GRAY MIRELES on 03/30/2021 2:30PM . Abhi Pulido MD CT ORDERABLES * SARS-COV-2 (COVID-19)+INFLU A+B PCR RAPID (03/29/2021 9:27 PM ANIMAL TECHNICIAN) COVID-19 PCR Not detected Not detected 03/29/20 21 10:05 PM ANIMAL TECHNICIAN [facility] Influenza A Rapid BRENDAN Not Detected Not Detected 03/29/2021 10:05 PM ANIMAL TECHNICIAN [facility] Influenza B BRENDAN Rapid Not Detected Not Detected 03/29/2021 10:05 PM [facility] Microbiology SPECIMEN FROM NASOPHARYNGEAL STRUCTURE / Unknown Collection / Unknown 03/29/2021 9:27 PM ANIMAL TECHNICIAN 03/29/2021 9:34 PM ANIMAL TECHNICIAN [facility] - 03/29/2021 10:05 PM ANIMAL TECHNICIAN Influenza assay performed by [employer]. [...] acid amplification assay performance was validated by [facility]. This test has been authorized by the [...] Pulido MD LAB - MICROBIOL OGY ORDERABLES [address] [address], [facility] [phone] * BLOOD TYPE VERIFICATION (03/29/2021 9:19 PM ANIMAL TECHNICIAN) ABO Rh A POS 03/29/2021 10:12 PM ANIMAL TECHNICIAN [facility] Blood Bank BLOOD SPECIMEN / Unknown Venipuncture / Unknown 03/29/2021 9:19 PM ANIMAL TECHNICIAN 03/29/2021 9:28 PM ANIMAL TECHNICIAN Abhi Pulido MD LAB - BLOOD BAN K ORDERABLES [facility] [address] [place] [id number] [phone] * XR PELVIS 1 OR 2VW (03/29/2021 9:10 PM ANIMAL TECHNICIAN) Anatomical Region Laterality Modality Pelvis Radiographic Ilene ging 03/30/2021 1:11 AM ANIMAL TECHNICIAN Impressions 03/30/2021 10:04 AM ANIMAL TECHNICIAN IMPRESSION: There is a minimally displaced fracture of the left acetabulum. A mildly displaced fracture of the posterior left iliac bone is not well visualized on the current study. Please see the dedicated CT for further details. Diastases of the left sacroiliac joint is not well visualized. Dictated by Marco Antonio Beltran MD (radiology practitioner assistant). I, Dr. MATTIE RICHARDSON MD have personally reviewed and interpreted this examination/study. This report was electronically signed by MATTIE RICHARDSON MD on 03/30/2021 10:04 AM . Narrative 03/30/2021 10:04 AM ANIMAL TECHNICIAN EXAMINATION: XR PELVIS 1 OR 2VW HISTORY: [...] visualized. Dictated by Marco Antonio Beltran MD (radiology practitioner assistant). Dr. MATTIE Angel MD have personally reviewed and interpreted this examination/study. This report was electronically signed by MATTIE RICHARDSON MD on 03/30/2021 10:04 AM . Abhi Pulido MD DIAGNOSTIC IMAG ING ORDERABLES * XR CHEST 1VW PORTABLE (03/29/2021 9:09 PM ANIMAL TECHNICIAN) Anatomical Region Laterality Modality Chest Radiographic Ilene ging 03/30/2021 1:03 AM ANIMAL TECHNICIAN Impressions 03/30/2021 10:03 AM ANIMAL TECHNICIAN IMPRESSION: No acute pulmonary process. Dictated by Marco Antonio Beltran MD (radiology practitioner assistant). Dr. MATTIE Angel MD have personally reviewed and interpreted this examination/study. This report was electronically signed by MATTIE RICHARDSON MD on 03/30/2021 10:03 AM . Narrative 03/30/2021 10:03 AM ANIMAL TECHNICIAN EXAMINATION: XR CHEST 1VW PORTABLE HISTORY: Trauma [...] process. Dictated by Marco Antonio Beltran MD (radiology practitioner assistant). Dr. MATTIE Angel MD have personally reviewed and interpreted this examination/study. This report was electronically signed by MATTIE RICHARDSON MD on 03/30/2021 10:03 AM . 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 There are fractures of the distal tibia and fibula as well as the cuneiform bones. Evaluation for fracture details is limited on this single lateral view provided. Dictated by Marco Antonio Beltran MD (radiology practitioner assistant). Dr. SUE Angel have personally reviewed and interpreted this examination/study. This report was electronically signed by SUE LEZAMA on 03/31/2021 9:53 PM . Narrative 03/31/2021 9:53 PM ANIMAL TECHNICIAN EXAMINATION: XR ANKLE LEFT 1VW HISTORY: T14.90XA: [...] provided. Dictated by Marco Antonio Beltran MD (radiology practitioner assistant). Dr. SUE Angel have personally reviewed and interpreted this examination/study. This report was electronically signed by SUE LEZAMA on 03/31/2021 9:53 PM. Abhi Pulido MD DIAGNOSTIC IMAG ING ORDERABLES * (ABNORMAL) ALCOHOL ETHYL BLOOD (03/29/2021 8:43 PM ANIMAL TECHNICIAN) Ethanol (mg/dL) 63(H) <10 mg/dL 9:11 PM ANIMAL TECHNICIAN [facility] Ethanol Calculated (g/dL) 0.063(H) <0.010 g/dL 03/29/2021 9:11 PM ANIMAL TECHNICIAN [facility] Blood BLOOD SPECIMEN / Unknown Venipuncture / Unknown 03/29/2021 8:43 PM ANIMAL TECHNICIAN 03/29/2021 8:49 PM ANIMAL TECHNICIAN Narrative [facility] - 03/29/2021 9:11 PM ANIMAL TECHNICIAN Ethanol Interp <10: None Detected. Depression of HEALTH PROMOTION COORDINATOR: >100 mg/dl Potentially Critical: >250 mg/dl Potentially Fatal >400 mg/dl Ethanol in the patient's blood will contribute to the osmolar gap. Ethanol's contribution to the osmolar gap can be estimated by dividing the concentration of ethanol in mg/dL by 4.6. This test is for clinical use only and does not equal a CATE for legal purposes. Abhi Pulido MD LAB - CHEMISTRY ORDERABLES [facility] [address] [place] [id number], [facility] [phone]
--- OUTSIDE RECORDS SUMMARY | 2024-06-07 21:27 | XMS_ITS | Encounter Summary ---
Author Organization [facility] Address [address] [place] [address] Care Team Providers Care Correctional Lieutenant Name Role Phone Unavailable Primary Care Provider Unavailabl e Reason for Visit * Reason Onset Date Comments MEDICATION REFILL 05/28/2021 Encounter Details Date Type Department Care Team (Late st Contact Info) Description 05/28/2021 Refill [facility] - Orthopedics [address] [place] [address], Critical [place] [address] Tripp Peng, DO [address] [place] [address] [place] [address] MEDICATION REFILL Social History Tobacco Use Types [...] amputation of left lower extremity, subsequent encounter ([facility]) documented in this encounter
[2024-06-07] MEDS: HYDROmorphone HCL INJ (*CRX) 1 MG/ML SYR 0.5 MG IV PUSH (21:41)
[2024-06-07] MEDS: ONDANSETRON INJ 4 MG/2 ML VIAL IV PUSH (21:41)
[2024-06-08] VITALS (10 sets, daily range): BP systolic 104–134; BP diastolic 65–109; O2SAT 94–98
--- NOTE | 2024-06-08 00:41 | PC.NURSE ---
pt given sprite to po challenge
== END 2024-06-08 01:12 | disposition home or self-care (01) ==
PROVIDERS: Physician Assistant; Emergency Provider Physician Assistant; PCP Family Medicine
DX: K86.1 Other chronic pancreatitis (principal); J45.909 Unspecified asthma, uncomplicated
CPT/HCPCS: 36415; 74177; 80053; 81003; 83690; 85025; 96374; 96375; 99284; J1171; J2405; Q9967